=== PATIENT | female | born 1975 | race Caucasian/White ===

== ENCOUNTER 2020-04-23 10:23 | Outpatient (RCR) | payer OTHER, SELFPAY | END 2020-10-21 10:37 | disposition home or self-care (01) | LOC: HO.WCC 10:23 | PROVIDERS: PCP Internal Medicine; Visit Provider Physician Assistant | DX: E11.622 Type 2 diabetes mellitus with other skin ulcer (principal); L97.912 Non-pressure chronic ulcer of unspecified part of right lower leg with fat layer exposed; E11.51 Type 2 diabetes mellitus with diabetic peripheral angiopathy without gangrene; I10 Essential (primary) hypertension; L60.2 Onychogryphosis; F17.210 Nicotine dependence, cigarettes, uncomplicated; Z71.6 Tobacco abuse counseling; Z79.84 Long term (current) use of oral hypoglycemic drugs; Z91.14 Patient's other noncompliance with medication regimen | CPT/HCPCS: 11042; 17250; 97602; 99202; 99212 ==

== ENCOUNTER → 2020-05-19 12:28 | Outpatient (BNVA) | payer OTHER, SELFPAY | PROVIDERS: PCP Internal Medicine; Referring Provider Internal Medicine; Visit Provider Internal Medicine | DX: Z76.89 Persons encountering health services in other specified circumstances (principal) ==

== ENCOUNTER 2020-06-02 09:05 | Outpatient (REF) | payer OTHER, SELFPAY ==
--- NOTE | 2020-06-02 09:07 | US_ITS ---
EXAMINATION: US THYROID CLINICAL INFORMATION: Hypothyroidism, unspecified. COMPARISON: None TECHNIQUE: Linear transducer patterson-scale and color Doppler examination with attention to the region of the thyroid. FINDINGS: SIZE: Measurements of the thyroid lobes and nodules are given in sagittal, anteroposterior and transverse dimensions respectively. Right Thyroid Lobe: 3.5 x 1.2 x 1.6 cm, volume 3.5 mL. Parenchyma: The gland echotexture is heterogeneous. Thyroid vascularity is normal. Left Thyroid Lobe: 3.0 x 1.0 x 1.3 cm, volume 2.1 mL. Parenchyma: The gland echotexture is heterogeneous. Thyroid vascularity is normal. Isthmus: 0.2 cm in maximum AP dimension. RIGHT THYROID LOBE: There is 1 nodule seen. 1. Location: Midpole. Size: 1.6 x 1.2 x 0.9 cm. Nodule characteristics: Hypoechoic, smoothly marginated with no intranodular flow. ISTHMUS: No nodules. LEFT THYROID LOBE: No nodules. NODES: No lymphadenopathy is seen in the tissue surrounding the thyroid gland. US/US thyroid IMPRESSION: Solitary hypoechoic nodule, suspicious by SOTO criteria. A short-term followup in 6 months or an ultrasound-guided fine-needle biopsy can be performed.
== END 2020-06-02 09:06 | disposition home or self-care (01) ==
LOC: HO.HMGCX 09:05
PROVIDERS: PCP Internal Medicine; Visit Provider Internal Medicine
DX: E03.9 Hypothyroidism, unspecified (principal)
CPT/HCPCS: 76536

== ENCOUNTER 2020-06-30 09:16 | Outpatient (REF) | payer OTHER, SELFPAY ==
[2020-06-30 11:36] LABS: Estimated Average Glucose 258 mg/dL; Hemoglobin A1c % 10.6 %
[2020-06-30 11:46] LABS: Alanine Aminotransferase 50 U/L (0-31); Albumin Level 4.1 g/dL (3.5-5.0); Alkaline Phosphatase 95 U/L (39-117); Anion Gap 14 (12-20); Aspartate Amino Transferase 53 U/L (5-31); Blood Urea Nitrogen 10 mg/dL (9-16); Calcium 8.9 mg/dL (8.4-10.2); Carbon Dioxide 28 mmol/L (22-29); Chloride 97 mmol/L (96-108); Cholesterol 223 mg/dL; Estimated Glomerular Filt Rate > 60; Glucose Random 248 mg/dL (60-115); HDL Cholesterol 45 mg/dL; LDL Cholesterol Calculated 143 mg/dl; Potassium 4.1 mmol/l (3.3-5.1); Sodium 135 mmol/L (135-145); Total Protein 7.4 g/dL (6.5-8.0); Triglycerides 178 mg/dL
[2020-06-30 11:57] LABS: Free T4 (Free Thyroxine) 1.36 ng/dL (0.71-1.85); Thyroid Stimulating Hormone 2.86 uIU/mL (0.32-4.0); Vitamin D 25-OH Total 6.2 ng/mL (>30)
[2020-06-30 12:20] LABS: Creatinine Urine 265.36 mg/dL; Microalbum/Creatinine Ratio Ur 7.1 ug/mg cr
[2020-07-01 06:58] LABS: LDL Cholesterol Direct 152 mg/dL (<100); Triiodothyronine T3 Total 98 ng/dL (76-181)
[2020-07-01 17:57] LABS: Thyroglobulin Antibodies <1 IU/mL (< or = 1); Thyroid Peroxidase Antibodies 14 IU/mL (<9)
[2020-07-05 16:07] LABS: Thyroid Stimulating Immunoglob 318 % baseline (<140)
[2020-07-07 19:22] LABS: Thyrotropin Receptor Antibody 2.88 IU/L (<=2.00)
== END 2020-06-30 09:17 | disposition home or self-care (01) ==
LOC: HO.HMGCLDS 09:16
PROVIDERS: PCP Internal Medicine; Visit Provider Internal Medicine
DX: E11.65 Type 2 diabetes mellitus with hyperglycemia (principal); Z79.4 Long term (current) use of insulin; E03.9 Hypothyroidism, unspecified; E55.9 Vitamin D deficiency, unspecified
CPT/HCPCS: 36415; 80053; 80061; 82043; 82306; 83036; 83520; 83721; 84439; 84443; 84445; 84480; 86376; 86800

== ENCOUNTER → 2020-07-14 16:00 | Outpatient (BNVA) | payer OTHER, SELFPAY | PROVIDERS: PCP Internal Medicine; Visit Provider Internal Medicine | DX: E11.65 Type 2 diabetes mellitus with hyperglycemia (principal); Z79.4 Long term (current) use of insulin; E03.9 Hypothyroidism, unspecified; E55.9 Vitamin D deficiency, unspecified; E78.5 Hyperlipidemia, unspecified; I10 Essential (primary) hypertension; E04.2 Nontoxic multinodular goiter | CPT/HCPCS: 82947; 99212 ==

== ENCOUNTER 2020-07-16 09:47 | Outpatient (REF) | payer OTHER, SELFPAY ==
--- NOTE | 2020-07-16 09:56 | XR_ITS ---
EXAMINATION: XR TIBIA AND FIBULA, RIGHT CLINICAL INFORMATION: Diabetic with right lower leg pain. COMPARISON: None TECHNIQUE: AP and lateral views of the right tibia and fibula were obtained. A lateral marker was placed where patient complains of pain. FINDINGS: The bones and soft tissues are normal. No fracture. No osseous lesions in the tibia or fibula. There is an incidental finding of degenerative arthritic spurring superior patella with probable loose body in the suprapatellar bursa as noted. Also visualized is calcification of posterior Achilles tendon, likely a remote injury. Moderate-sized calcaneal heel and retrocalcaneal spurs are seen. XR/XR tibia fibula RT 2V IMPRESSION: Unremarkable right tibia and fibula exam.
== END 2020-07-16 09:48 | disposition home or self-care (01) ==
LOC: HO.XRAY 09:47
PROVIDERS: PCP Internal Medicine; Visit Provider Physician Assistant
DX: E11.9 Type 2 diabetes mellitus without complications (principal); M79.661 Pain in right lower leg
CPT/HCPCS: 73590

== ENCOUNTER 2020-08-30 09:32 | Outpatient (REF) | payer OTHER, SELFPAY ==
--- NOTE | ~2020-08-30 | US_ITS ---
EXAMINATION: COLOR-FLOW DUPLEX IMAGING OF THE BILATERAL LOWER EXTREMITY ARTERIAL SYSTEM. VELOCITY MEASUREMENTS THROUGHOUT THE FEMORAL ARTERIES CLINICAL INFORMATION: This is a 45-year-old female with diabetes, right lower extremity peripheral arterial disease. COMPARISON: None. RIGHT FEMORAL RUNOFF VELOCITIES: The right common femoral artery measures 154 cm/s and triphasic. The right profunda femoral artery is 96 cm/s and is biphasic. Right proximal superficial femoral artery measures 136 cm/s and triphasic. Mid superficial femoral artery is 186 cm/s and triphasic. Distal right superficial femoral artery measures 112 cm/s and is triphasic. Right popliteal velocity measures 92 cm/s and is triphasic. The posterior tibial artery velocity measures 91 cm/s and was monophasic. US/US arterial duplex LE RT IMPRESSION: 1. There is mild disease in the mid right superficial femoral artery without evidence of hemodynamically significant stenosis. The right posterior tibial artery is monophasic without hemodynamically significant stenosis visualized.
== END 2020-08-30 09:33 | disposition home or self-care (01) ==
LOC: HO.US 09:32
PROVIDERS: Visit Provider Physician Assistant
DX: I73.9 Peripheral vascular disease, unspecified (principal)
CPT/HCPCS: 93926

== ENCOUNTER 2020-12-03 08:52 | Outpatient (RCR) | payer OTHER, SELFPAY | END 2020-12-13 16:25 | disposition home or self-care (01) | LOC: HO.WCC 08:52 | PROVIDERS: Visit Provider Physician Assistant | DX: E11.622 Type 2 diabetes mellitus with other skin ulcer (principal); L97.812 Non-pressure chronic ulcer of other part of right lower leg with fat layer exposed; E11.51 Type 2 diabetes mellitus with diabetic peripheral angiopathy without gangrene; Z79.84 Long term (current) use of oral hypoglycemic drugs; F17.210 Nicotine dependence, cigarettes, uncomplicated; I10 Essential (primary) hypertension; Z71.6 Tobacco abuse counseling | CPT/HCPCS: 99212 ==

== ENCOUNTER → 2021-01-12 08:07 | Outpatient (BNVA) | payer OTHER, SELFPAY | PROVIDERS: PCP Internal Medicine; Visit Provider Internal Medicine ==

== ENCOUNTER 2021-08-29 12:09 | Outpatient (REF) | payer OTHER, SELFPAY ==
[2021-08-29 14:29] LABS: Alanine Aminotransferase 27 U/L (0-31); Albumin Level 3.8 g/dL (3.5-5.0); Alkaline Phosphatase 93 U/L (39-117); Anion Gap 10 (12-20); Aspartate Amino Transferase 31 U/L (5-31); Bilirubin Total 0.8 mg/dL (0.0-1.0); Blood Urea Nitrogen 10 mg/dL (9-16); Calcium 9.5 mg/dL (8.4-10.2); Carbon Dioxide 31 mmol/L (22-29); Chloride 100 mmol/L (96-108); Cholesterol 261 mg/dL; Estimated Glomerular Filt Rate > 60; Glucose Fasting 213 mg/dL (60-99); HDL Cholesterol 52 mg/dL; LDL Cholesterol Calculated 180 mg/dl; Potassium 4.3 mmol/L (3.3-5.1); Sodium 137 mmol/L (135-145); Total Protein 7.1 g/dL (6.5-8.0); Triglycerides 146 mg/dL
[2021-08-29 14:35] LABS: Free T4 (Free Thyroxine) 0.44 ng/dL (0.71-1.85); Thyroid Stimulating Hormone 25.84 uIU/mL (0.32-4.0); Vitamin D 25-OH Total 9.2 ng/mL (>30)
[2021-08-29 14:39] LABS: Estimated Average Glucose 258 mg/dL; Hemoglobin A1c % 10.6 %
[2021-08-30 21:43] LABS: Thyroid Peroxidase Antibodies 11 IU/mL (<9)
== END 2021-08-29 12:10 | disposition home or self-care (01) ==
LOC: HO.HMGCLDS 12:09
PROVIDERS: Visit Provider Internal Medicine
DX: E03.9 Hypothyroidism, unspecified (principal); E04.2 Nontoxic multinodular goiter; E11.65 Type 2 diabetes mellitus with hyperglycemia; E55.9 Vitamin D deficiency, unspecified; E78.5 Hyperlipidemia, unspecified; I10 Essential (primary) hypertension
CPT/HCPCS: 36415; 80053; 80061; 82306; 83036; 84439; 84443; 86376

== ENCOUNTER 2021-11-10 07:58 | Outpatient (RCR) | payer OTHER, SELFPAY | END 2021-11-17 14:56 | disposition home or self-care (01) | LOC: HO.WCC 07:58 | PROVIDERS: PCP Internal Medicine; Visit Provider Surgery | DX: Z09 Encounter for follow-up examination after completed treatment for conditions other than malignant neoplasm (principal); E11.9 Type 2 diabetes mellitus without complications; I10 Essential (primary) hypertension; F17.210 Nicotine dependence, cigarettes, uncomplicated; Z79.84 Long term (current) use of oral hypoglycemic drugs; Z87.2 Personal history of diseases of the skin and subcutaneous tissue | CPT/HCPCS: 99213 ==

== ENCOUNTER 2022-05-18 08:07 | Outpatient (REF) | payer OTHER, SELFPAY ==
[2022-05-18 11:24] LABS: MANUAL DIFF FLAG NO
[2022-05-18 11:40] LABS: Basophils Absolute Auto 0.1 X10*3/uL (0.0-0.2); Basophils Percent Auto 1.2 % (0-2); Eosinophils Absolute Auto 0.8 X10*3/uL (0.0-0.4); Eosinophils Percent Auto 7.4 % (0-4); Hematocrit 47.2 % (37.0-47.0); Hemoglobin 15.5 g/dl (12.0-16.0); Imm Gran Abs Auto 0.05 X10*3/uL (0.00-0.03); Imm Gran Pct Auto 0.5 % (0.0-0.4); Lymphocytes Absolute Auto 2.8 X10*3/uL (1.2-4.9); Lymphocytes Percent Auto 26.9 % (20-40); Mean Corpuscular HGB Conc 32.8 g/dl (31.0-35.0); Mean Corpuscular Hemoglobin 30.2 pg (27.0-33.0); Mean Platelet Volume 12.8 fL (9.4-12.3); Monocytes Absolute Auto 0.5 X10*3/uL (0.1-1.2); Monocytes Percent Auto 4.6 % (2-11); Neutrophils Absolute Auto 6.2 x10*3/uL (2.0-8.3); Neutrophils Percent Auto 59.4 % (45-73); Platelet Count 207 X10*3/uL (160-400); Red Blood Count 5.13 X10*6/uL (4.20-5.50); Red Cell Distribution Width 12.6 % (11.0-16.0); White Blood Count 10.4 X10*3/uL (4.8-10.8)
[2022-05-18 12:17] LABS: Creatinine Urine 70.47 mg/dL; Microalbumin Urine < 5.0 mg/L
[2022-05-18 12:44] LABS: Estimated Average Glucose 249 mg/dL; Hemoglobin A1c % 10.3 %
[2022-05-18 14:17] LABS: Alanine Aminotransferase 32 U/L (0-31); Anion Gap 14 (12-20); Aspartate Amino Transferase 31 U/L (5-31); Blood Urea Nitrogen 10 mg/dL (9-16); Calcium 9.5 mg/dL (8.4-10.2); Carbon Dioxide 27 mmol/L (22-29); Chloride 98 mmol/L (96-108); Cholesterol 248 mg/dL; Estimated Glomerular Filt Rate > 60; Free T4 (Free Thyroxine) 0.55 ng/dL (0.71-1.85); Glucose Fasting 273 mg/dL (60-99); HDL Cholesterol 47 mg/dL; LDL Cholesterol Calculated 160 mg/dl; Potassium 4.4 mmol/L (3.3-5.1); Sodium 135 mmol/L (135-145); Thyroid Stimulating Hormone 17.26 uIU/mL (0.32-4.0); Triglycerides 206 mg/dL
== END 2022-05-18 08:08 | disposition home or self-care (01) ==
LOC: HO.HMGCLDS 08:07
PROVIDERS: PCP Internal Medicine; Visit Provider Internal Medicine
DX: E11.65 Type 2 diabetes mellitus with hyperglycemia (principal); E03.9 Hypothyroidism, unspecified; E04.2 Nontoxic multinodular goiter; E55.9 Vitamin D deficiency, unspecified; E78.5 Hyperlipidemia, unspecified; I10 Essential (primary) hypertension
CPT/HCPCS: 36415; 80048; 80061; 82043; 82306; 83036; 84439; 84443; 84450; 84460; 85025

== ENCOUNTER 2022-10-10 08:02 | Outpatient (RCR) | payer OTHER, SELFPAY | END 2022-10-10 16:00 | disposition home or self-care (01) | LOC: HO.WCC 08:02 | PROVIDERS: PCP Internal Medicine; Visit Provider Physician Assistant | DX: Z09 Encounter for follow-up examination after completed treatment for conditions other than malignant neoplasm (principal); E11.51 Type 2 diabetes mellitus with diabetic peripheral angiopathy without gangrene; I10 Essential (primary) hypertension; F17.210 Nicotine dependence, cigarettes, uncomplicated; Z87.2 Personal history of diseases of the skin and subcutaneous tissue | CPT/HCPCS: 99212 ==

== ENCOUNTER 2023-05-10 09:48 | Emergency (ER) | payer SELFPAY ==
--- NOTE | ~2023-05-10 | XR_ITS ---
EXAMINATION: XR KNEE, LEFT CLINICAL INFORMATION: Left knee pain COMPARISON: 12/21/2017 TECHNIQUE: Four views of the left knee. FINDINGS: There is no evidence of fracture or dislocation. There are mild degenerative changes with is spurring cause the lateral tibial plateau and medial femoral condyle. There is soft tissue calcification adjacent to the patella laterally and there is patellofemoral compartment degenerative changes with marginal spurring. There is no joint effusion. XR/XR knee LT 3V IMPRESSION: Mild degenerative changes
[2023-05-10 10:13] VITALS: BP 142/83; PULSE 83; RESP 18; TEMP 36.6; O2SAT 91; BMI 43.0
[2023-05-10 10:30] LABS: Glucose, Whole Blood 190 mg/dL (60-115)
--- NOTE | 2023-05-10 10:41 | ED.EXTPRO ---
HPI - Extremity Problem General Chief complaint: Extremity Problem Stated complaint: Left knee pain Time Seen by Provider: 05/10/23 10:38 Source: patient Mode of arrival: ambulatory Limitations: no limitations History of Present Illness HPI Narrative: Patient is a 47-year-old female presenting to the emergency department with 4-5 days of left knee pain. She denies any fall or other trauma. Reports pain is to lateral aspect of her knee. States pain increases with flexion and decreases with extension. Reports history of injury to same knee in the past. Has used Tylenol for her pain. Denies any numbness or tingling. Reports she is able to ambulate and has still been able to go to work. MD Complaint: extremity pain Onset (ago): day(s) Pain Consistency: constant Location: left and knee Quality: aching Radiation: none Relieving factors: other (extension) Exacerbating factors: other (flexion) Associated symptoms: denies other symptoms Related Data Previous Rx's Medication Instructions Recorded FreeStyle Lite Meter #1 ea 09/06/21 (blood-glucose meter) FreeStyle Lite Strips (blood sugar #100 ea 09/06/21 diagnostic) lancets 28 gauge #100 ea 09/06/21 lancets 28 gauge (FreeStyle #200 ea 09/13/21 Lancets) Lantus Solostar U-100 Insulin 100 10 unit (0.1 mL) subcut QPM 90 06/06/22 unit/mL (3 mL) subcutaneous pen days #15 mL (insulin glargine) atorvastatin 20 mg tablet 20 mg PO DAILY #90 tabs 12/15/22 levothyroxine 175 mcg tablet 175 mcg PO QAM #90 tabs 12/15/22 lisinopril 5 mg tablet 5 mg PO DAILY #90 tabs 12/15/22 metformin 1,000 mg tablet 1,000 mg PO BIDWMEAL 90 days #180 12/15/22 tabs lidocaine 5 % topical patch 1 patch topical DAILY #15 ea 05/10/23 naproxen 500 mg tablet 500 mg PO BID #28 tabs 05/10/23 Allergies Allergy/AdvReac Type Severity Reaction Status Date / Time doxycycline AdvReac GI upset Verified 06/01/22 10:52 Review of Systems Review of Systems: As per HPI. Yes all other systems are reviewed and are negative Constitutional: Constitutional: Reports as per HPI PMFSH Past Medical History Medical History (Updated 05/10/23 @ 13:09 by Eula Page NP) Ulcer of lower extremity due to diabetes Morbid obesity Diabetes mellitus with hyperglycemia, with long-term current use of insulin Smoker unmotivated to quit Anxiety and depression Toenail fungus Cigarette smoker motivated to quit Depression Type 2 diabetes mellitus with hyperglycemia, without long-term current use of insulin Multinodular thyroid Vitamin D deficiency Hypothyroidism HLD (hyperlipidemia) HTN (hypertension) T2DM (type 2 diabetes mellitus) Surgical History Umbilical hernia, incarcerated Pyloric stenosis Hx of cholecystectomy History of tooth extraction Family History Family History Father Emphysema lung Substance use disorder Mother No problems noted. Social History Social History Housing: House Alcohol intake: never Patient Tobacco Use Status: Current everyday Tobacco user Tobacco use type: Cigarette Cigarette Packs Per Day: 1 Cigarettes Per Day: 8 Years Smoked: 9 e-Cigarette/Vaping Use: Never Used Advance Directives: No service: No Current occupational status: employed Cognitive needs: No Hearing needs: No Vision needs: Yes Physical Exam Vital Signs: Vital Signs: Last Vital Signs Temp 98 F 05/10/23 10:13 Pulse 83 05/10/23 10:13 Resp 18 05/10/23 10:13 BP 142/83 H 05/10/23 10:13 Pulse Ox 91 L 05/10/23 10:13 O2 Del Method Room Air 05/10/23 10:13 BMI result Body Mass Index 43.0 Vital signs have been reviewed and appear to be correct. Blood pressure normal. Heart rate normal. Respiratory rate normal. Temperature normal. Oxygen saturation low, patient currently being treated for bronchitis. Const: General: cooperative and no acute distress Orientation/consciousness: oriented to person, oriented to place, oriented to time and patient oriented x3 Limitations: no limitations HEENT: Head: Yes normocephalic and Yes atraumatic Ears: external ears normal General nose exam: Normal external nose present Face and sinus: Yes face symmetric Mouth: oropharynx normal and moist mucous membranes Throat: Yes uvula midline Eyes: Pupils: Equal, round and reactive pupils present Neck: Neck: Yes normal visual inspection and Yes supple Resp: Effort & Inspection: normal respiratory effort and able to speak in complete sentences Auscultation: clear to auscultation bilaterally Cardio: Rate: regular rate Rhythm: regular rhythm Heart sounds: S1 normal heart sound present and S2 normal heart sound present Skin: General skin exam: elasticity normal and turgor normal Neuro: General: oriented to person, oriented to place, oriented to time, patient oriented x3, moves all extremities, no focal motor deficits and CN's II-XI intact bilaterally Cranial nerves: Yes Equal, round and reactive pupils present Cognition (Neuro): normal cognition Extrem: General: Yes full ROM, Yes no pedal edema and Yes no calf tenderness Left lower extremity: knee Details: normal to inspection, tenderness Location: of the lateral joint line, normal ROM and knee ligament exam normal; no deformity and no unusual warmth and foot Details: vascular exam Details: dorsalis pedis pulse present and posterior tibial pulse present Psych: Mental Status: mental status grossly normal Affect: normal affect Thought process: Normal thought process present Medical Decision Making Medical Decision Making [facility] Narrative: Patient is a 47-year-old female presenting to the emergency department with 4-5 days of left knee pain. On exam patient is awake, A+Ox3, VS WNL, afebrile, normal neurological exam without focal deficits, physical exam findings as above. Given reported symptoms and physical exam findings, initial differential includes degenerative changes, osteoarthritis, strain. X-ray notable for degenerative changes. My interpretation is in agreement with the radiologist's interpretation. Results discussed with patient and all questions answered. Aj wrap applied in the emergency department. Will prescribe naproxen and topical lidocaine patches and referred to orthopedics. Return precautions discussed at bedside. Patient verbalized understanding of and agreement with plan. Differential Diagnosis Differential Diagnoses: The differential diagnosis associated with the presentation includes As per MDM. Lab Data [facility] Lab Attestation statement: I reviewed the patient's lab results. Mildly elevated glucose Labs: Lab Results 05/10/23 Range/Units 10:25 POC Glucose 190 H (60-115) mg/dL Independent Interpretation I performed an independent interpretation of an: Plain X-Ray Interpretation: No fracture, degenerative changes noted Radiology Impression Radiologist Impression: XR/XR knee LT 3V IMPRESSION: Mild degenerative changes External Record Review External record reviewed: Inpatient record, Office record and Outpatient record Prescription Management I considered prescription management with: Pain Medication and Other Discharge Plan Discharge Clinical Impression: Knee pain, left Patient Disposition: Home, Self-Care Instructions: Knee Pain (ED) Additional Instructions: You have been evaluated in the emergency department today for knee pain. Your evaluation did not find evidence of medical conditions requiring emergent intervention at this time. We have provided an AJ wrap for you to use for suuport. Please rest, ice, and elevate your knee, and resume normal activities as tolerated. You are being prescribed naproxen and topical lidocaine patches for pain. You may wear the lidocaine patches for up to 12 hours a 24 hour period, do not apply heat directly over the patches. Please schedule an appointment for follow-up with your primary care provider this week. You are also being referred to Orthopedics for further evaluation and management of your symptoms. Please call them to set up an appointment. Return to the emergency department if you experience worsening pain, numbness, tingling, change of color in your leg, or any other concerning symptoms. Prescriptions: New naproxen 500 mg tablet 500 mg PO BID Qty: 28 0RF lidocaine 5 % adhesive patch,medicated 1 patch topical DAILY Qty: 15 0RF Rx Instructions: leave on most painful area for up to 12 hrs No Action (DME) lancets [FreeStyle Lancets] 28 gauge misc See Rx Instructions .Route Qty: 200 3RF Rx Instructions: test blood sugars twice a day insulin glargine [Lantus Solostar U-100 Insulin] 100 unit/mL (3 mL) insulin pen 10 unit subcut QPM 90 Days Qty: 15 2RF metformin 1,000 mg tablet 1,000 mg PO BIDWMEAL 90 Days Qty: 180 1RF levothyroxine 175 mcg tablet 175 mcg PO QAM Qty: 90 1RF lisinopril 5 mg tablet 5 mg PO DAILY Qty: 90 1RF atorvastatin 20 mg tablet 20 mg PO DAILY Qty: 90 1RF (DME) lancets 28 gauge misc See Rx Instructions topical TID Qty: 100 5RF Rx Instructions: check blood sugar twice a day before meals As directed (DME) blood-glucose meter [FreeStyle Lite Meter] Kit See Rx Instructions .Route Qty: 1 0RF Rx Instructions: As directed (DME) FreeStyle Lite Strips Strip See Rx Instructions .Route Qty: 100 5RF Rx Instructions: check fasting blood sugartwice a day AC Ref[place]: [facility] [Provider Group]
== END 2023-05-10 13:15 | disposition home or self-care (01) ==
PROVIDERS: Emergency Provider Student in an Organized Health Care Education/Training Program; PCP Internal Medicine
DX: M25.562 Pain in left knee (principal); E11.65 Type 2 diabetes mellitus with hyperglycemia; I10 Essential (primary) hypertension; E78.5 Hyperlipidemia, unspecified; F17.210 Nicotine dependence, cigarettes, uncomplicated; E66.9 Obesity, unspecified; Z68.41 Body mass index [BMI] 40.0-44.9, adult; Z79.4 Long term (current) use of insulin; Z79.899 Other long term (current) drug therapy
CPT/HCPCS: 73562; 82947; 99283

== ENCOUNTER 2023-11-23 08:49 | Outpatient (REF) | payer OTHER, SELFPAY ==
[2023-11-23 10:43] LABS: Estimated Average Glucose 269 mg/dL
[2023-11-23 11:07] LABS: Creatinine Urine 285.69 mg/dL
[2023-11-23 11:12] LABS: Alanine Aminotransferase 29 U/L (0-31); Albumin Level 3.9 g/dL (3.5-5.0); Alkaline Phosphatase 101 U/L (39-117); Anion Gap 12 (12-20); Aspartate Amino Transferase 28 U/L (5-31); Bilirubin Total 0.6 mg/dL (0.0-1.0); Blood Urea Nitrogen 12 mg/dL (9-16); Carbon Dioxide 29 mmol/L (22-29); Chloride 100 mmol/L (96-108); Cholesterol 231 mg/dL (<200); Estimated Glomerular Filt Rate > 60; Glucose Fasting 288 mg/dL (60-99); HDL Cholesterol 44 mg/dL (>40); LDL Cholesterol Calculated 148 mg/dL (<100); Sodium 137 mmol/L (135-145); Total Protein 7.4 g/dL (6.5-8.0); Triglycerides 195 mg/dL (<150)
[2023-11-23 11:32] LABS: Thyroid Stimulating Hormone 16.56 uIU/mL (0.32-4.0); Vitamin D 25-OH Total 18.5 ng/mL (>30)
[2023-11-24 11:09] LABS: LDL Cholesterol Direct 172 mg/dL (<100)
== END 2023-11-23 08:50 | disposition home or self-care (01) ==
LOC: HO.HMGCLDS 08:49
PROVIDERS: PCP Internal Medicine; Visit Provider Internal Medicine
DX: E66.01 Morbid (severe) obesity due to excess calories (principal); E11.65 Type 2 diabetes mellitus with hyperglycemia; E55.9 Vitamin D deficiency, unspecified; E03.9 Hypothyroidism, unspecified; E78.5 Hyperlipidemia, unspecified; I10 Essential (primary) hypertension; Z79.4 Long term (current) use of insulin
CPT/HCPCS: 36415; 80053; 80061; 82043; 82306; 82570; 83036; 83721; 84439; 84443

== ENCOUNTER 2023-12-03 11:56 | Outpatient (AMB) | payer OTHER, SELFPAY ==
[2023-12-03 12:02] VITALS: BP 136/88; PULSE 94; O2SAT 97; BMI 41.5
--- NOTE | 2023-12-03 12:02 | MHC.PC.OV ---
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 Sewer Required: No Allergies doxycycline Adverse Reaction (Verified 12/03/23 12:44) GI upset Medication List - Last Reconciled 12/04/23 by Evie Hickman MD atorvastatin 20 mg PO DAILY bupropion HCl (smoking deter) 150 mg PO BID cholecalciferol (vitamin D3) 1,250 mcg PO QWEEK 3 months FreeStyle Lite Meter (blood-glucose meter) As directed NS FreeStyle Lite Strips (blood sugar diagnostic) check fasting blood sugartwice a day AC NS insulin glargine (Lantus Solostar U-100 Insulin) 10 units subcut QPM lancets check blood sugar twice a day before meals As directed lancets (FreeStyle Lancets) test blood sugars twice a day levothyroxine 175 mcg PO QAM metformin 1,000 mg PO BIDWMEAL 90 days pen needle, diabetic As directed to inject insulin once a day pen needle, diabetic (BD Ultra-Fine Short Pen Needle) As directed Tobacco use date assessed: 12/03/23 Dental Screening Dental Screen Date: 12/03/23 Did you have a dental visit in the last 12 months?: No Did you have a dental problem in the last 6 months where you did not have access to dental care?: No Was dental information given to patient?: No HPI Need medications follow up HPI Details 48-year-old lady with uncontrolled diabetes mellitus, hypothyroidism, morbid obesity, anxiety /depression, hyperlipidemia, Tinea ungiuum with history of noncompliance, here today reestablish care. She has not been taking any medications until 2 weeks ago when she started taking again metformin, atorvastatin, and levothyroxine. Complains of feeling very tired all the time, has difficulty with keeping her focus on tasks at work and at home, admits to eating a lot of processed foods, no exercise at all, and has not been checking her blood sugars for the last several months now. 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 Has been having a lot of anxiety attacks lately, and would like help quitting smoking [facility] Medical History (Updated 12/03/23 @ 13:04 by Evie Hickman MD) Diabetic neuropathy Ulcer of lower extremity due to diabetes Morbid obesity Diabetes mellitus with hyperglycemia, with long-term current use of insulin Anxiety and depression Toenail fungus Cigarette smoker motivated to quit Depression Type 2 diabetes mellitus with hyperglycemia, without long-term current use of insulin Multinodular thyroid Vitamin D deficiency Hypothyroidism HLD (hyperlipidemia) HTN (hypertension) T2DM (type 2 diabetes mellitus) Surgical History Umbilical hernia, incarcerated Pyloric stenosis Hx of cholecystectomy History of tooth extraction Family History Father Emphysema lung Substance use disorder Mother Atrial fibrillation Social History Housing: House Alcohol intake: never Patient Tobacco Use Status: Current everyday Tobacco user Tobacco use type: Cigarette Cigarette Packs Per Day: 1 Cigarettes Per Day: 20 Years Smoked: 9 e-Cigarette/Vaping Use: Never Used service: No Current occupational status: employed Cognitive needs: No Hearing needs: No Vision needs: Yes Questionnaire PHQ-9 Over the last 2 weeks, how often have you been bothered by any of the following problems? 1. Little interest or pleasure in doing things: several days 2. Feeling down, depressed, or hopeless: nearly every day 3. Trouble falling or staying asleep, or sleeping too much: more than half the days 4. Feeling tired or having little energy: more than half the days 5. Poor appetite or overeating: several days 6. Feeling bad about yourself - or that you are a failure or have let yourself or your family down: nearly every day 7. Trouble concentrating on things, such as reading the newspaper or watching television: several days 8. Moving or speaking so slowly that other people could have noticed. Or the opposite - being so fidgety or restless that you have been moving around a lot more than usual: not at all 9. Thoughts that you would be better off or of hurting yourself in some way: several days Total score: 14 Depression Screening Interpretation: Positive Depression Screening Follow-up: Existing condition, New Medication prescribed, Community Mental Health Worker F/U and Follow-up Visit Requested Depression Screening Done: Yes 21601 - PHQ-9 Billing: Yes Source: Developed by Drs. Jose Wei, Jayleen Hanson, Wyatt Jung and colleagues, with an educational margaret from [employer]. Thrive Questionnaire Date Thrive assessed: 12/03/23 I am a: Patient What is your living situation today?: I have a steady place to live Within the past 12 months, did the food you bought not last and you didn't have the money to get more?: Sometimes True Within the past 12 months, did you worry whether your food would run out before you got money to buy more?: Sometimes True Do you have trouble paying for medicines?: No Do you have trouble getting transportation to medical appointments?: Yes Do you have trouble paying your heating and electricity bill?: No Do you have trouble taking care of your child, family member or friend?: Yes Do you have trouble with day-to-day activities such as bathing, preparing meals, shopping, managing finances, etc.?: Yes Are you currently unemployed and looking for a job?: No Are you interested in more education?: Yes THRIVE Score: 3 AUDIT C Alcohol Use Questionnaire (AUDIT-C) 1. How often do you have a drink containing alcohol?: Never 3. How often do you have six or more drinks on one occasion?: Never Total Score: 0 Score Reviewed/Action Taken: Yes CODY-7 AMB Questionnaire CODY-7 Date CODY - 7 assessed: 12/03/23 Feeling nervous, anxious, or on edge: 2 = More than half the days Not being able to stop or control worryin = Nearly every day Worrying too much about different things: 3 = Nearly every day Trouble relaxin = More than half the days Being so restless that it is hard to sit still: 1 = Several days Becoming easily annoyed or irritable: 3 = Nearly every day Feeling afraid as if something awful might happen: 3 = Nearly every day Total COYD-7 score (0-4 normal; 5-9 mild; 10-14 moderate; 15-21 severe): 17 Source: Developed by Jayleen Holbrook B.W. Valentin, Wyatt Jung and colleagues, with an educational margaret from [employer]. CODY-7 Assessment Billing CODY-7 Assessment Tool: CODY-7 Assessment 90717 Review of Systems Const Reports fatigue, Denies fever(s), Denies headache(s), Reports malaise and Denies weakness Eyes Details: Overdue for a routine eye check and diabetes eye screen Denies change in vision and Denies itchy eyes ENT Denies dizziness, Denies headache(s), Denies nasal congestion, Denies nasal discharge and Denies sore throat Card Denies chest pain, Denies lightheadedness, Denies palpitations and Denies dyspnea Resp Denies chest congestion, Denies cough, Denies dyspnea and Denies wheezing GI Denies abdominal pain, Denies change in bowel habits and Denies heartburn Denies dysuria Musc Denies abnormal gait, Denies deformity, Denies limited range of motion and Reports stiffness Skin/Breast Denies breast swelling, Denies breast pain, Denies breast mass and Reports nail changes Neuro Denies abnormal gait, Denies dizziness, Denies headache(s) and Denies weakness Psych Reports as per HPI Endo Reports fatigue, Reports polyuria and Denies palpitations To/Lymph Denies easy bruising Aller/Immun Denies itchy eyes, Denies seasonal rhinorrhea and Denies wheezing Physical exam (Primary Care) Vital Signs: Last Vital Signs Pulse 94 12/03/23 12:02 BP 136/88 12/03/23 12:02 Pulse Ox 97 12/03/23 12:02 Oxygen Delivery Method Room Air 12/03/23 12:02 BMI result Body Mass Index 41.5 BMI Assessment/Plan discussion: High BMI High, discussed plan: lifestyle, weight reduction, dietary and physical activity Tobacco/Smoking Status: Tobacco use Status Tobacco use date assessed 12/03/23 12/03/23 12:12 Patient Tobacco Use Status Current everyday Tobacco 12/03/23 12:12 Tobacco use type Cigarette 12/03/23 12:12 e-Cigarette/Vaping Use Never Used 12/03/23 12:12 Are you ready to quit: No PHQ-9: PHQ-9 Score PHQ-9: Total score 14 12/04/23 17:48 Depression Screening Interpretation: Positive Depression Screening Follow-up: Existing condition, New Medication prescribed, Community Mental Health Worker F/U and Follow-up Visit Requested Thrive Assessment: Date of Thrive Assessment Date Thrive assessed 12/03/23 12/03/23 12:50 Const Other: Morbidly obese, alert, oriented x3, normal gait Orientation/consciousness: patient oriented x3 HENMT Head: Yes normocephalic and Yes atraumatic Ears: hearing grossly normal bilaterally, TM's normal bilaterally and EAC's normal General nose exam: Normal external nose present and No nasal discharge present Face and sinus: Yes face symmetric Mouth: Normal oral and palatal mucosa present and moist mucous membranes Eyes General: appearance normal, both eyes and all related structures Neck Neck: Yes full ROM, Yes no lymphadenopathy and Yes supple Thyroid: Thyroid normal Resp Effort & Inspection: normal respiratory effort and able to speak in complete sentences Auscultation: clear to auscultation bilaterally Cardio Rate: regular rate Rhythm: regular rhythm Heart sounds: S1 normal heart sound present and S2 normal heart sound present GI Inspection: Yes Abdominal panniculus present and Yes obesity Palpation (GI): Soft to palpation, nontender, no guarding and no masses Back/Spine/Pelvis Back: No back tenderness Skin Other: Dry cracking skin in both feet, with plantar callus present bilateral General skin exam: dry skin Nails: yellow and thickened (Toenails bilaterally) Neuro General: patient oriented x3, gait normal, tone normal, moves all extremities, Normal light touch and pain sensation, no focal motor deficits and CN's II-XI intact bilaterally Extrem General: Yes full ROM, Yes no joint enlargement, Yes no clubbing, cyanosis or edema and Yes no pedal edema Psych Appearance: grossly normal Mental Status: mental status grossly normal Speech and movement: Normal speech and movement present and Clear speech present Affect: Sad affect present Attitude: cooperative Thought process: Normal thought process present Results Reviewed Results Reviewed: Laboratory Tests 11/23/23 11/23/23 08:54 08:57 Estimat Average Glucose 269 Hemoglobin A1c % 11.0 H LDL Cholesterol Direct 172 H Name: Pam Navarrete Age/Sex: 48/F : 1975 Unit#: [id number] Attend Dr: Evie Hickman MD Re11/23/23 Status: DEP REF Location: [facility] Disch: SPEC : [id number] LITO: 11/23/23 STATUS: COMP REQ : [id number] RECD: 11/23/23 [facility] [address]: Evie Hickman MD COMP: 11/23/23 ENTERED: 11/23/[address] [facility] [address]: ORDERED: CMP Fast, Lipid Panel, Vitamin D 25-OH, Free T4, TSH Test Result Flag Reference Sodium 137 135-145 mmol/L Potassium 4.0 3.3-5.1 mmol/L CL 100 96-108 mmol/L CO2 29 22-29 mmol/L Gap 12 12-20 BUN 12 9-16 mg/dL Creat 0.83 0.5-1.4 mg/dL EGFR > 60 NOTE: For -Maldiv[place] individuals, multiply the result by 1.210. Chronic Kidney Disease: Estimated GFR < 60 mL/min/1.73m2 Severe Kidney Disease: Estimated GFR < 15 mL/min/1.73m2 FBS 288 H 60-99 mg/dL A fasting glucose of 126 mg/dl or greater on more than one occasion is considered diagnostic of diabetes. CA 10.0 8.4-10.2 mg/dL Total Bili 0.6 0.0-1.0 mg/dL AST (GOT) 28 5-31 U/L ALT (GPT) 29 0-31 U/L Protein, Total 7.4 6.5-8.0 g/dL Alb 3.9 3.5-5.0 g/dL Triglyceride 195 H <150 mg/dL Desirable Triglyceride: less than 150 mg/dL Borderline High Triglyceride 150-199 mg/dL High Triglyceride: 200-499 mg/dL Very High Triglyceride: greater than or equal to 5OO mg/dL Cholesterol 231 H <200 mg/dL Desirable Cholesterol: less than 200 mg/dL Borderline High Cholesterol: 200-239 mg/dL High Cholesterol: greater than 239 mg/dL LDL Calculated 148 H <100 mg/dL Desirable LDL: less than 100 mg/dL Near Optimal/Above Optimal LDL: 110-129 mg/dL Borderline High LDL: 130-159 mg/dL High LDL: 160-189 mg/dL Very High LDL: greater than or equal to 190 mg/dL HDL 44 >40 mg/dL Desirable HDL: greater than 40 mg/dL Note: This HDL assay may give artificially low results in patients with liver disease. Alk Phos 101 39-117 U/L Vit D 25-OH Tot 18.5 L >30 ng/mL Health Based Reference Values* < 20 ng/mL Deficient 20-30 ng/mL Insufficient > 30 ng/mL Sufficient *Nayla PEDROZA. N Engl J Med. 2007;[id number]:266-280 Care must be taken in interpreting Vitamin D results from different laboratories and methodologies. Published data demonstrated that results from patients undergoing hemodialysis may show a negative bias when tested with various automated 25-OH vitamin D assays when compared to LC-MS/MS. When testing samples from patients whose predominant form of Vitamin D is Vitamin D2, such as patients receiving Vitamin D2 supplementation, results that are subtherapeutic should be confirmed with another method such as LC-MS/MS. Free T4 0.70 L 0.71-1.85 ng/dL TSH 3rd Gen. 16.56 H 0.32-4.0 uIU/mL Note: A sustained TSH level above 2.5 uIU/mL may warrant further investigation. TSH 3rd Generation ([facility]) Assessment and Plan Assessment & Plan (1) Anxiety and depression: Code(s): F41.9 - Anxiety disorder, unspecified; F32.A - Depression, unspecified Plan: Prescription sent for bupropion HCL, 150 mg per tablet initially to be taken once a day in a.m. for 3 days and then increase dose to 150 mg 1 tablet twice a day. Do not take the last 2nd dose no any later than 15:00 as it can cause difficulty sleeping patient advised to start cutting back on her cigarettes while taking the medication will see her back for follow-up in 4-6 weeks after starting (2) HLD (hyperlipidemia): Code(s): E78.5 - Hyperlipidemia, unspecified Qualifiers: Hyperlipidemia type: unspecified Qualified Code(s): E78.5 - Hyperlipidemia, unspecified Plan: Recent fasting lipid panel showed elevated LDL cholesterol and triglycerides. She was recently started on atorvastatin again about a week ago, continue with 20 mg daily, reinforced importance of following a healthy diet, and getting regular exercise to start off at least 15 minutes of cardio daily. 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 Patient was prescribed freestyle meter and I strips, to check sugar at least twice a day before meals and keep a log of the readings, refusing to use the freestyle [place] or Dexcom meter, states that it frequently falls off when she puts it on her arm. Endocrine consult obtain (4) Morbid obesity: Code(s): E66.01 - Morbid (severe) obesity due to excess calories Plan: Reinforced importance of following recommended diet and getting regular exercise (5) Toenail fungus: Code(s): B35.1 - Tinea unguium Plan: Referral to podiatry Blood pressure at goal of less than 130/80. Continue with current medication. Reinforced importance of following a low sodium diet, getting regular exercise, and lowering stress levels. (6) HTN (hypertension): Code(s): I10 - Essential (primary) hypertension Qualifiers: Hypertension type: unspecified Qualified Code(s): I10 - Essential (primary) hypertension Plan: Blood pressure goal is less than 130/80. Reinforced importance of following a low sodium diet, getting regular exercise, and lowering stress levels. (7) Hypothyroidism: Code(s): E03.9 - Hypothyroidism, unspecified Qualifiers: Hypothyroidism type: unspecified Qualified Code(s): E03.9 - Hypothyroidism, unspecified Plan: Recently started back again on levothyroxine 175 mcg taken once a day in a.m. an hour before breakfast. 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 for the 1st 3 days and then 1 tablet twice a day at least 8 hours apart. Do not take close to bed time 150 mg PO BID 60 tabs 1RF F41.9 - Anxiety disorder, unspecified, F32.A - Depression, unspecified Coding Level of Care Code Est Pt Level 4 (08276) Complex EM visit Add On G2211 Diagnoses Anxiety and depression F41.9; F32.A Hyperlipidemia, unspecified hyperlipidemia type E78.5 Hyperlipidemia type: unspecified Diabetes mellitus with hyperglycemia, with long-term current use of insulin E11.65; Z79.4 Morbid obesity E66.01 Toenail fungus B35.1 Hypertension, unspecified type I10 Hypertension type: unspecified Hypothyroidism, unspecified type E03.9 Hypothyroidism type: unspecified Additional Codes CODY-7 Assessment Billing - CODY-7 Assessment Tool: CODY-7 Assessment [id number] ([id number])
== END 2023-12-03 13:37 | disposition home or self-care (01) ==
PROVIDERS: PCP Internal Medicine; Visit Provider Internal Medicine
DX: E11.65 Type 2 diabetes mellitus with hyperglycemia (principal); Z79.4 Long term (current) use of insulin; E66.01 Morbid (severe) obesity due to excess calories; Z68.41 Body mass index [BMI] 40.0-44.9, adult; F41.9 Anxiety disorder, unspecified; F32.A Depression, unspecified; E78.5 Hyperlipidemia, unspecified; B35.1 Tinea unguium; I10 Essential (primary) hypertension; E03.9 Hypothyroidism, unspecified
CPT/HCPCS: 96127; 99214; G2211

== ENCOUNTER 2023-12-28 08:29 | Outpatient (AMB) | payer OTHER, SELFPAY ==
--- NOTE | 2023-12-28 08:24 | MHC.PC.OV ---
Intake Visit Reasons: FMLA Iphone [phone] Intake Note: Pt is here today to discuss a continuous FMLA (FYI, pt didn't refill her insulin rx) Allergies doxycycline Adverse Reaction (Verified 12/28/23 08:44) GI upset Medication List - Last Reconciled 12/28/23 by Evie Hickman MD atorvastatin 20 mg PO DAILY blood-glucose sensor (FreeStyle Laverne 3 Sensor device) As directed to test blood sugar 4 times per day blood-glucose sensor (FreeStyle Laverne 3 Sensor device) As directed bupropion HCl (smoking deter) 150 mg PO BID cholecalciferol (vitamin D3) 1,250 mcg PO QWEEK 3 months FreeStyle Lite Meter (blood-glucose meter) As directed NS FreeStyle Lite Strips (blood sugar diagnostic) check fasting blood sugartwice a day AC NS lancets (FreeStyle Lancets) test blood sugars twice a day lancets check blood sugar twice a day before meals As directed levothyroxine 175 mcg PO QAM metformin 1,000 mg PO BIDWMEAL 90 days pen needle, diabetic As directed to inject insulin once a day pen needle, diabetic (BD Ultra-Fine Short Pen Needle) As directed Tobacco use date assessed: 12/28/23 Dental Screening Dental Screen Date: 12/03/23 Did you have a dental visit in the last 12 months?: No Was dental information given to patient?: No HPI [place] Iphone [phone] HPI Details 48-year-old lady with poorly controlled diabetes mellitus , has hyperlipidemia, hypothyroidism, morbid obesity, hypertension and, anxiety depression, here today for follow-up. Patient has taken leave off from her work due to mental health issues and poorly controlled diabetes mellitus, and hypothyroidism. She has been taking her medications now as instructed, but has not been able to fill her prescription for insulin due to financial constraints. She would like to extend her leave until February 02 , as she is still trying to control her diabetes and mental health issues.. She states that she is only taking metformin a 1000 mg twice a day, and has noticed improvement in her sugar levels. Her blood sugar levels has been running from between 120-160 mg/dL, and has had 1 or 2 episodes of hypoglycemic attacks were in it would go down to 50 mg/dL at night. She is currently being seen by Dr. Calvin for her toenail fungus. She has been taking her bupropion, and has cut back her her smoking to at least 3-5 day. [facility] Medical History Diabetic neuropathy Ulcer of lower extremity due to diabetes Morbid obesity Diabetes mellitus with hyperglycemia, with long-term current use of insulin Anxiety and depression Toenail fungus Cigarette smoker motivated to quit Depression Type 2 diabetes mellitus with hyperglycemia, without long-term current use of insulin Multinodular thyroid Vitamin D deficiency Hypothyroidism HLD (hyperlipidemia) HTN (hypertension) T2DM (type 2 diabetes mellitus) Surgical History Umbilical hernia, incarcerated Pyloric stenosis Hx of cholecystectomy History of tooth extraction Family History Father Emphysema lung Substance use disorder Mother Atrial fibrillation Social History Housing: House Alcohol intake: never Patient Tobacco Use Status: Current everyday Tobacco user Tobacco use type: Cigarette Cigarette Packs Per Day: 1 Cigarettes Per Day: 20 Years Smoked: 9 e-Cigarette/Vaping Use: Never Used service: No Current occupational status: employed Cognitive needs: No Hearing needs: No Vision needs: Yes Questionnaire Thrive Questionnaire Date Thrive assessed: 12/03/23 CODY-7 AMB Questionnaire CODY-7 Date CODY - 7 assessed: 12/03/23 Source: Developed by Drs. Jose Wei, Jayleen Hanson, Wyatt Jung and colleagues, with an educational margaret from [employer]. Review of Systems Const Reports fatigue, Denies fever(s), Denies headache(s), Denies malaise and Denies weakness Eyes Details: Overdue for a routine eye check and diabetes eye screen Denies change in vision and Denies itchy eyes ENT Denies dizziness, Denies headache(s), Denies nasal congestion, Denies nasal discharge and Denies sore throat Card Denies chest pain, Denies lightheadedness, Denies palpitations and Denies dyspnea Resp Denies chest congestion, Denies cough, Denies dyspnea and Denies wheezing GI Denies abdominal pain, Denies change in bowel habits and Denies heartburn Denies dysuria Musc Denies abnormal gait, Denies deformity, Denies limited range of motion and Reports stiffness Skin/Breast Denies breast swelling, Denies breast pain, Denies breast mass and Reports nail changes Neuro Denies abnormal gait, Denies dizziness, Denies headache(s) and Denies weakness Endo Reports fatigue, Reports polyuria and Denies palpitations To/Lymph Denies easy bruising Aller/Immun Denies itchy eyes, Denies seasonal rhinorrhea and Denies wheezing Physical exam (Primary Care) Tobacco/Smoking Status: Tobacco use Status Tobacco use date assessed 12/28/23 12/28/23 08:29 Patient Tobacco Use Status Current everyday Tobacco 12/28/23 08:29 Tobacco use type Cigarette 12/28/23 08:29 e-Cigarette/Vaping Use Never Used 12/28/23 08:29 Thrive Assessment: Date of Thrive Assessment Date Thrive assessed 12/03/23 12/28/23 08:29 Telehealth Telehealth Telehealth Platform: [employer] Location of provider rendering services: practice address Location of patient: address on file Patient Identification confirmed using: Name, : Yes Telehealth method: video Patient verbally consented to treatment: Yes Patient verbally consented to billing insurance company: Yes Patient informed of any privacy concerns related to visit: Yes Minutes spent on Phone/Video with Pt.: 15 Assessment and Plan Assessment & Plan (1) Vitamin D deficiency: Code(s): E55.9 - Vitamin D deficiency, unspecified Plan: Continue cholecalciferol 72990 units per capsule taken once a week for the next 3 months. Advised patient that once finished taking the prescription, to continue taking [id number] vitamin-D 3 at 2000 units per capsule daily. (2) Hypothyroidism: Code(s): E03.9 - Hypothyroidism, unspecified Qualifiers: Hypothyroidism type: unspecified Qualified Code(s): E03.9 - Hypothyroidism, unspecified Plan: Continue with current dose of levothyroxine 175 mcg daily in a.m. an hour before breakfast (3) HLD (hyperlipidemia): Code(s): E78.5 - Hyperlipidemia, unspecified Qualifiers: Hyperlipidemia type: unspecified Qualified Code(s): E78.5 - Hyperlipidemia, unspecified Plan: Continue atorvastatin 20 mg daily. Reinforced importance of following a low-cholesterol diet and get regular exercise. (4) Diabetes mellitus with hyperglycemia, with long-term current use of insulin: Code(s): E11.65 - Type 2 diabetes mellitus with hyperglycemia; Z79.4 - care home (current) use of insulin Plan: Stressed importance of taking her medications as directed, continue with metformin 1000 mg 1 tablet twice a day. Will hold off on giving insulin. Continue with adherence to healthy diet and start getting some form of exercise to at least 15 minutes of brisk walking daily. Reminded again to get her diabetes retinopathy screening done. (5) Anxiety and depression: Code(s): F41.9 - Anxiety disorder, unspecified; F32.A - Depression, unspecified Plan: Continue with bupropion HCL 150 mg per tablet taken 1 tablet twice a day, which is also helpful with her smoking cessation. FMLA form application completed today Orders: Orders Lipid Panel 01/06/24 E03.9 - Hypothyroidism, unspecified, E11.65 - Type 2 diabetes mellitus with hyperglycemia, E55.9 - Vitamin D deficiency, unspecified, E78.5 - Hyperlipidemia, unspecified, I10 - Essential (primary) hypertension, Z79.4 - intermodal dispatcher (current) use of insulin Vitamin D 25-OH Total 01/06/24 E03.9 - Hypothyroidism, unspecified, E11.65 - Type 2 diabetes mellitus with hyperglycemia, E55.9 - Vitamin D deficiency, unspecified, E78.5 - Hyperlipidemia, unspecified, I10 - Essential (primary) hypertension, Z79.4 - intermodal dispatcher (current) use of insulin Free T4 (Free Thyroxine) 01/06/24 E03.9 - Hypothyroidism, unspecified, E11.65 - Type 2 diabetes mellitus with hyperglycemia, E55.9 - Vitamin D deficiency, unspecified, E78.5 - Hyperlipidemia, unspecified, I10 - Essential (primary) hypertension, Z79.4 - care home (current) use of insulin Aspartate Amino Transferase 01/06/24 E03.9 - Hypothyroidism, unspecified, E11.65 - Type 2 diabetes mellitus with hyperglycemia, E55.9 - Vitamin D deficiency, unspecified, E78.5 - Hyperlipidemia, unspecified, I10 - Essential (primary) hypertension, Z79.4 - care home (current) use of insulin Alanine Aminotransferase 01/06/24 E03.9 - Hypothyroidism, unspecified, E11.65 - Type 2 diabetes mellitus with hyperglycemia, E55.9 - Vitamin D deficiency, unspecified, E78.5 - Hyperlipidemia, unspecified, I10 - Essential (primary) hypertension, Z79.4 - intermodal dispatcher (current) use of insulin Thyroid Stimulating Hormone 01/06/24 E03.9 - Hypothyroidism, unspecified, E11.65 - Type 2 diabetes mellitus with hyperglycemia, E55.9 - Vitamin D deficiency, unspecified, E78.5 - Hyperlipidemia, unspecified, I10 - Essential (primary) hypertension, Z79.4 - care home (current) use of insulin Coding Level of Care Code Tele Est Pt Level 4 (76289) Complex EM visit Add On G2211 Diagnoses Vitamin D deficiency E55.9 Hypothyroidism, unspecified type E03.9 Hypothyroidism type: unspecified Hyperlipidemia, unspecified hyperlipidemia type E78.5 Hyperlipidemia type: unspecified Diabetes mellitus with hyperglycemia, with long-term current use of insulin E11.65; Z79.4 Anxiety and depression F41.9; F32.A
== END 2023-12-28 10:38 | disposition home or self-care (01) ==
LOC: HO.HMGC 08:29
PROVIDERS: PCP Internal Medicine; Visit Provider Internal Medicine
DX: E11.65 Type 2 diabetes mellitus with hyperglycemia (principal); Z79.4 Long term (current) use of insulin; E55.9 Vitamin D deficiency, unspecified; E03.9 Hypothyroidism, unspecified; E78.5 Hyperlipidemia, unspecified; F41.9 Anxiety disorder, unspecified; F32.A Depression, unspecified
CPT/HCPCS: 99214; G2211

== ENCOUNTER 2024-01-09 11:58 | Outpatient (REF) | payer OTHER, SELFPAY ==
[2024-01-09 14:28] LABS: Alanine Aminotransferase 22 U/L (0-31); Aspartate Amino Transferase 22 U/L (5-31); Cholesterol 130 mg/dL (<200); HDL Cholesterol 43 mg/dL (>40); LDL Cholesterol Calculated 64 mg/dL (<100); Triglycerides 118 mg/dL (<150)
[2024-01-09 14:32] LABS: Free T4 (Free Thyroxine) 0.75 ng/dL (0.71-1.85); Vitamin D 25-OH Total 18.6 ng/mL (>30)
== END 2024-01-09 11:59 | disposition home or self-care (01) ==
LOC: HO.HMGCLDS 11:58
PROVIDERS: PCP Internal Medicine; Visit Provider Internal Medicine
DX: E55.9 Vitamin D deficiency, unspecified (principal); E03.9 Hypothyroidism, unspecified; E78.5 Hyperlipidemia, unspecified; I10 Essential (primary) hypertension; E11.65 Type 2 diabetes mellitus with hyperglycemia; Z79.4 Long term (current) use of insulin
CPT/HCPCS: 36415; 80061; 82306; 84439; 84443; 84450; 84460

== ENCOUNTER 2024-01-11 09:13 | Outpatient (AMB) | payer OTHER, SELFPAY ==
--- NOTE | 2024-01-11 09:12 | MHC.PC.OV ---
Intake Visit Reasons: ipMyEveTab smoking cessation [phone] Allergies doxycycline Adverse Reaction (Verified 01/11/24 09:18) GI upset Medication List - Last Reconciled 01/11/24 by Evie Hickman MD atorvastatin 20 mg PO DAILY blood-glucose sensor (FreeStyle Laverne 3 Sensor device) As directed to test blood sugar 4 times per day blood-glucose sensor (FreeStyle Laverne 3 Sensor device) As directed bupropion HCl (smoking deter) 150 mg PO BID FreeStyle Lite Meter (blood-glucose meter) As directed NS FreeStyle Lite Strips (blood sugar diagnostic) check fasting blood sugartwice a day AC NS lancets (FreeStyle Lancets) test blood sugars twice a day lancets check blood sugar twice a day before meals As directed levothyroxine 175 mcg PO QAM metformin 1,000 mg PO BIDWMEAL 90 days pen needle, diabetic As directed to inject insulin once a day pen needle, diabetic (BD Ultra-Fine Short Pen Needle) As directed Tobacco use date assessed: 01/11/24 Dental Screening Dental Screen Date: 01/11/24 Did you have a dental visit in the last 12 months?: No Did you have a dental problem in the last 6 months where you did not have access to dental care?: No Was dental information given to patient?: Patient declined HPI [facility] smoking cessation [phone] HPI Details Telehealth visit made with 48-year-old female, here today for follow-up on her smoking cessation. Started on bupropion HCL 150 mg taken 1 tablet twice a day, which has been helping her quit smoking. Patient states that she has not had a cigarette for the last 3 weeks now. Denies any further cravings, no increased irritability mood swings noted after smoking cessation. She has diabetes mellitus currently on metformin a 1000 mg 1 tablet twice a day and currently on freestyle Laverne. Patient states that there was an instance where her blood sugar at night dropped to 53 mg/dL. On average however her blood sugar has been ranging from between 130-160 mg/dl, but still has occasional episodes of spiking in the 200s. She already has an appointment to see a beef selector later this month and will be make an appointment to see an data support analyst for retinopathy screening. Recent fasting labs showed lipids are within normal limits, currently on atorvastatin taking 20 mg daily. Has been trying to follow recommended diet, but admits to not getting much exercise still. Thyroid levels on recent labs showed elevated TSH with a low normal free T4 level. She is currently on levothyroxine 175 mcg daily in a.m.. [facility] Medical History (Updated 01/11/24 @ 09:39 by Evie Hickman MD) Former cigarette smoker Left anterior knee pain Diabetic neuropathy Ulcer of lower extremity due to diabetes Morbid obesity Diabetes mellitus with hyperglycemia, with long-term current use of insulin Anxiety and depression Toenail fungus Cigarette smoker motivated to quit Depression Type 2 diabetes mellitus with hyperglycemia, without long-term current use of insulin Multinodular thyroid Vitamin D deficiency Hypothyroidism HLD (hyperlipidemia) HTN (hypertension) T2DM (type 2 diabetes mellitus) Surgical History Umbilical hernia, incarcerated Pyloric stenosis Hx of cholecystectomy History of tooth extraction Family History Father Emphysema lung Substance use disorder Mother Atrial fibrillation Social History Housing: House Alcohol intake: never Patient Tobacco Use Status: Former Tobacco user Tobacco use type: Cigarette Cigarette Packs Per Day: 1 Cigarettes Per Day: 20 Years Smoked: 9 e-Cigarette/Vaping Use: Never Used service: No Current occupational status: employed Cognitive needs: No Hearing needs: No Vision needs: Yes Questionnaire Thrive Questionnaire Date Thrive assessed: 12/03/23 CODY-7 AMB Questionnaire CODY-7 Date CODY - 7 assessed: 12/03/23 Source: Developed by Drs. Jose Wei, Jayleen Hanson, Wyatt Jung and colleagues, with an educational margaret from [employer]. Review of Systems Const Denies fever(s), Denies headache(s), Denies malaise and Denies weakness Eyes Details: Overdue for a routine eye check and diabetes eye screen Denies change in vision ENT Denies dizziness, Denies headache(s), Denies nasal congestion, Denies nasal discharge and Denies sore throat Card Denies chest pain, Denies lightheadedness, Denies palpitations and Denies dyspnea Resp Denies chest congestion, Denies cough, Denies dyspnea and Denies wheezing GI Denies abdominal pain, Denies change in bowel habits and Denies heartburn Denies dysuria Musc Denies abnormal gait, Denies deformity, Reports arthralgias (Anterior left knee), Reports limited range of motion and Reports stiffness Skin/Breast Details: 02/13/24 dr De Leon Neuro Denies abnormal gait, Denies dizziness, Denies headache(s) and Denies weakness Endo Reports polyuria and Denies palpitations Aller/Immun Denies seasonal rhinorrhea and Denies wheezing Physical exam (Primary Care) Tobacco/Smoking Status: Tobacco use Status Tobacco use date assessed 01/11/24 01/11/24 09:13 Patient Tobacco Use Status Former Tobacco user 01/11/24 09:13 Tobacco use type Cigarette 01/11/24 09:13 e-Cigarette/Vaping Use Never Used 01/11/24 09:13 Thrive Assessment: Date of Thrive Assessment Date Thrive assessed 12/03/23 01/11/24 09:13 Telehealth Telehealth Telehealth Platform: [employer] Location of provider rendering services: practice address Location of patient: address on file Patient Identification confirmed using: Name, : Yes Telehealth method: video Patient verbally consented to treatment: Yes Patient verbally consented to billing insurance company: Yes Patient informed of any privacy concerns related to visit: Yes Minutes spent on Phone/Video with Pt.: 15 Results Reviewed Results Reviewed: Name: Pam Nvaarrete Age/Sex: 48/F : 1975 Unit#: [id number] Attend Dr: Evie Hickman MD Re01/09/24 Status: DEP REF Location: [facility] Disch: SPEC : [id number] LITO: 01/09/24 STATUS: COMP REQ : [id number] RECD: 01/09/[address]: Evie Hickman MD COMP: 01/09/24 ENTERED: 01/09/24-[address]: ORDERED: AST, ALT, Lipid Panel, Vitamin D 25-OH, Free T4, TSH Test Result Flag Reference AST (GOT) 22 5-31 U/L ALT (GPT) 22 0-31 U/L Triglyceride 118 <150 mg/dL Desirable Triglyceride: less than 150 mg/dL Borderline High Triglyceride 150-199 mg/dL High Triglyceride: 200-499 mg/dL Very High Triglyceride: greater than or equal to 5OO mg/dL Cholesterol 130 <200 mg/dL Desirable Cholesterol: less than 200 mg/dL Borderline High Cholesterol: 200-239 mg/dL High Cholesterol: greater than 239 mg/dL LDL Calculated 64 <100 mg/dL Desirable LDL: less than 100 mg/dL Near Optimal/Above Optimal LDL: 110-129 mg/dL Borderline High LDL: 130-159 mg/dL High LDL: 160-189 mg/dL Very High LDL: greater than or equal to 190 mg/dL HDL 43 >40 mg/dL Desirable HDL: greater than 40 mg/dL Note: This HDL assay may give artificially low results in patients with liver disease. Vit D 25-OH Tot 18.6 L >30 ng/mL Health Based Reference Values* < 20 ng/mL Deficient 20-30 ng/mL Insufficient > 30 ng/mL Sufficient *Nayla PEDROZA. N Engl J Med. 2007;[id number]:[phone] Care must be taken in interpreting Vitamin D results from different laboratories and methodologies. Published data demonstrated that results from patients undergoing hemodialysis may show a negative bias when tested with various automated 25-OH vitamin D assays when compared to LC-MS/MS. When testing samples from patients whose predominant form of Vitamin D is Vitamin D2, such as patients receiving Vitamin D2 supplementation, results that are subtherapeutic should be confirmed with another method such as LC-MS/MS. Free T4 0.75 0.71-1.85 ng/dL TSH 3rd Gen. 16.40 H 0.32-4.0 uIU/mL Note: A sustained TSH level above 2.5 uIU/mL may warrant further investigation. TSH 3rd Generation ([facility]) Assessment and Plan Assessment & Plan (1) Left anterior knee pain: Code(s): M25.562 - Pain in left knee Plan: Advised to take Tylenol arthritis 650 mg 1 tablet 3 twice a day as needed, prescription also sent for diclofenac gel 1% to massaged to affected joint 3 times a day as needed. Referred to orthopedics for further evaluation management (2) Screening for malignant neoplasm of cervix: Code(s): Z12.4 - Encounter for screening for malignant neoplasm of cervix Plan: Referred to [facility] [place] [facility] for her routine Pap and pelvic exam. (3) HLD (hyperlipidemia): Code(s): E78.5 - Hyperlipidemia, unspecified Qualifiers: Hyperlipidemia type: unspecified Qualified Code(s): E78.5 - Hyperlipidemia, unspecified Plan: Continue atorvastatin 20 mg daily, in addition to adhering to healthy eating habits, and getting regular exercise. (4) Hypothyroidism: Code(s): E03.9 - Hypothyroidism, unspecified Qualifiers: Hypothyroidism type: unspecified Qualified Code(s): E03.9 - Hypothyroidism, unspecified Plan: TSH and free T4 levels were discussed with patient, will increase levothyroxine dose to 200 mcg daily in a.m. repeat another TSH and free T4 in 3 month (5) Vitamin D deficiency: Code(s): E55.9 - Vitamin D deficiency, unspecified Plan: Continue with cholecalciferol 22090 units once a week (6) Toenail fungus: Code(s): B35.1 - Tinea unguium Plan: Has an appointment to see Dr. De Leon for follow-up (7) Anxiety and depression: Code(s): F41.9 - Anxiety disorder, unspecified; F32.A - Depression, unspecified Plan: Improving with bupropion HCL 150 mg 1 tablet twice a day (8) Diabetes mellitus with hyperglycemia, with long-term current use of insulin: Code(s): E11.65 - Type 2 diabetes mellitus with hyperglycemia; Z79.4 - 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 of insulin Plan: Improving with metformin a 1000 mg taken twice a day. (9) Former cigarette smoker: Code(s): Z87.891 - Personal history of nicotine dependence Plan: Continue bupropion 150 mg 1 tablet twice a day Orders: Orders MM tomosynthesis screening BI 01/11/24 Z12.31 - Encounter for screening mammogram for malignant neoplasm of breast Vitamin D 25-OH Total 04/01/24 B35.1 - Tinea unguium, E03.9 - Hypothyroidism, unspecified, E11.65 - Type 2 diabetes mellitus with hyperglycemia, E55.9 - Vitamin D deficiency, unspecified, E78.5 - Hyperlipidemia, unspecified, F32.A - Depression, unspecified, F41.9 - Anxiety disorder, unspecified, I10 - Essential (primary) hypertension, Z79.4 - detention (current) use of insulin, Z87.891 - Personal history of nicotine dependence Lipid Panel 04/01/24 B35.1 - Tinea unguium, E03.9 - Hypothyroidism, unspecified, E11.65 - Type 2 diabetes mellitus with hyperglycemia, E55.9 - Vitamin D deficiency, unspecified, E78.5 - Hyperlipidemia, unspecified, F32.A - Depression, unspecified, F41.9 - Anxiety disorder, unspecified, I10 - Essential (primary) hypertension, Z79.4 - 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 of 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65 - Type 2 diabetes mellitus with hyperglycemia, E55.9 - Vitamin D deficiency, unspecified, E78.5 - Hyperlipidemia, unspecified, F32.A - Depression, unspecified, F41.9 - Anxiety disorder, unspecified, I10 - Essential (primary) hypertension, Z79.4 - detention (current) use of insulin, Z87.891 - Personal history of nicotine dependence Free T4 (Free Thyroxine) 04/01/24 B35.1 - Tinea unguium, E03.9 - Hypothyroidism, unspecified, E11.65 - Type 2 diabetes mellitus with hyperglycemia, E55.9 - Vitamin D deficiency, unspecified, E78.5 - Hyperlipidemia, unspecified, F32.A - Depression, unspecified, F41.9 - Anxiety disorder, unspecified, I10 - Essential (primary) hypertension, Z79.4 - 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 of insulin, Z87.891 - Personal history of nicotine dependence Basic Metabolic Panel Fasting 04/01/24 B35.1 - Tinea unguium, E03.9 - Hypothyroidism, unspecified, E11.65 - Type 2 diabetes mellitus with hyperglycemia, E55.9 - Vitamin D deficiency, unspecified, E78.5 - Hyperlipidemia, unspecified, F32.A - Depression, unspecified, F41.9 - Anxiety disorder, unspecified, I10 - Essential (primary) hypertension, Z79.4 - detention (current) use of insulin, Z87.891 - Personal history of nicotine dependence Aspartate Amino Transferase 04/01/24 B35.1 - Tinea unguium, E03.9 - Hypothyroidism, unspecified, E11.65 - Type 2 diabetes mellitus with hyperglycemia, E55.9 - Vitamin D deficiency, unspecified, E78.5 - Hyperlipidemia, unspecified, F32.A - Depression, unspecified, F41.9 - Anxiety disorder, unspecified, I10 - Essential (primary) hypertension, Z79.4 - detention (current) use of insulin, Z87.891 - Personal history of nicotine dependence Referrals CALCULATION REVIEWER Referral Z12.4 - Encounter for screening for malignant neoplasm of cervix Orthopedics Referral M25.562 - Pain in left knee Medications: New levothyroxine Take in the morning an hour before breakfast, with glass of water 200 mcg PO DAILY 90 caps 1RF E03.9 - Hypothyroidism, unspecified Changed From bupropion HCl (smoking deter) Take 1 tablet once a day in a.m. for the 1st 3 days and then 1 tablet twice a day at least 8 hours apart. Do not take close to bed time 150 mg PO BID 60 tabs 1RF F32.A - Depression, unspecified, F41.9 - Anxiety disorder, unspecified To bupropion HCl (smoking deter) 150 mg PO BID 60 tabs 5RF F32.A - Depression, unspecified, F41.9 - Anxiety disorder, unspecified Refilled cholecalciferol (vitamin D3) 1,250 mcg PO QWEEK 13 caps 0RF 3 months E55.9 - Vitamin D deficiency, unspecified Discontinued levothyroxine Discontinued Reason: Doctor's Order 175 mcg PO QAM 90 tabs 1RF Coding Level of Care Code Tele Est Pt Level 4 (24253) Complex EM visit Add On G2211 Diagnoses Left anterior knee pain M25.562 Screening for malignant neoplasm of cervix Z12.4 Hyperlipidemia, unspecified hyperlipidemia type E78.5 Hyperlipidemia type: unspecified Hypothyroidism, unspecified type E03.9 Hypothyroidism type: unspecified Vitamin D deficiency E55.9 Toenail fungus B35.1 Anxiety and depression F41.9; F32.A Diabetes mellitus with hyperglycemia, with long-term current use of insulin E11.65; Z79.4 Former cigarette smoker Z87.891
== END 2024-01-11 11:54 | disposition home or self-care (01) ==
LOC: HO.HMGC 09:13
PROVIDERS: PCP Internal Medicine; Visit Provider Internal Medicine
DX: M25.562 Pain in left knee (principal); Z12.4 Encounter for screening for malignant neoplasm of cervix; E78.5 Hyperlipidemia, unspecified; E03.9 Hypothyroidism, unspecified; E55.9 Vitamin D deficiency, unspecified; B35.1 Tinea unguium; F41.9 Anxiety disorder, unspecified; F32.A Depression, unspecified; E11.65 Type 2 diabetes mellitus with hyperglycemia; Z79.4 Long term (current) use of insulin; Z87.891 Personal history of nicotine dependence
CPT/HCPCS: 99214

== ENCOUNTER 2024-01-23 13:22 | Outpatient (AMB) | payer OTHER, SELFPAY ==
--- NOTE | 2024-01-23 13:26 | A.OFFVIS_ITS ---
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 Most recent HbA1c: 11.0%, 11/23/2023 Random Glucose- 150 mg/dL, Today Director Statistical Programming Required: No Accompanied by: Self / Same As Patient Allergies doxycycline Adverse Reaction (Verified 01/23/24 13:26) GI upset Medication List - Last Reconciled 01/23/24 by Sylwia Ennis MD atorvastatin 20 mg PO DAILY blood-glucose sensor (FreeStyle Laverne 3 Sensor device) As directed to test blood sugar 4 times per day blood-glucose sensor (FreeStyle Laverne 3 Sensor device) As directed bupropion HCl (smoking deter) 150 mg PO BID cholecalciferol (vitamin D3) 1,250 mcg PO QWEEK 3 months FreeStyle Lite Meter (blood-glucose meter) As directed NS FreeStyle Lite Strips (blood sugar diagnostic) check fasting blood sugartwice a day AC NS lancets (FreeStyle Lancets) test blood sugars twice a day lancets check blood sugar twice a day before meals As directed levothyroxine 200 mcg PO DAILY metformin 1,000 mg PO BIDWMEAL 90 days pen needle, diabetic As directed to inject insulin once a day pen needle, diabetic (BD Ultra-Fine Short Pen Needle) As directed HPI Comments Details: The patient is a 48 year old female with a past medical history of type 2 diabetes, hypothyroid, depression presenting for diabetic follow up Micro and macrovascular complications: +neuropathy, PVD, diabetic wounds. Follows wound clinic Current medication prescribed: Metformin 1000mg twice daily Last A1C today 11.0% 11/23/23. CGM freestyle laverne 3 download from one month ago (patient did not bring today) downloaded A1C 6.8%, 93% within target, high 7%. Patient explains that when A1C was taken in October she was had not been taking her metformin x months. She was having a flare in depressive symptoms at the time and so wasnt taking medications or watching her diet Hypoglycemia: a few episodes in past 2-3 weeks per patient. 50s, symptomatic. resolved with food. [id number] Overdue podiatry-has appt booked for march Exercise: none Also has hypothyroid. Last TSH elevated, levothyroxine increased to 200mcg daily. Patient says she misses many doses. ln september/october was not taking any. ROS CONSTITUTIONAL: Denies weight loss, fever and chills. HEENT: Denies changes in vision and hearing. RESPIRATORY: Denies SOB and cough. CV: Denies palpitations and CP GI: Denies abdominal pain, nausea, vomiting and diarrhea. : Denies dysuria and urinary frequency. MSK: Denies new myalgia and joint pain. SKIN: Toenail & foot fungus NEUROLOGICAL: Denies headache PSYCHIATRIC: Denies recent changes in mood. PHYSICAL EXAM: GENERAL: Alert and oriented x 3. NAD EYES: EOMI. Anicteric. HENT: Moist mucous membranes. No scleral icterus. No cervical lymphadenopathy. LUNGS: Clear to auscultation bilaterally. CARDIOVASCULAR: Regular rate and rhythm. No murmur. No JVD. ABDOMEN: Soft, non-tender +bs EXTREMITIES:1+dp pulses b/l SKIN: Two ulcerations of anterior lower leg. Thick onychomycoses and tinea pedis NEUROLOGIC: No focal neurological deficits. CN II-XII grossly intact PSYCHIATRIC: Cooperative. Appropriate mood and affect [facility]LY [facility] Medical History Former cigarette smoker Left anterior knee pain Diabetic neuropathy Ulcer of lower extremity due to diabetes Morbid obesity Diabetes mellitus with hyperglycemia, with long-term current use of insulin Anxiety and depression Toenail fungus Cigarette smoker motivated to quit Depression Type 2 diabetes mellitus with hyperglycemia, without long-term current use of insulin Multinodular thyroid Vitamin D deficiency Hypothyroidism HLD (hyperlipidemia) HTN (hypertension) T2DM (type 2 diabetes mellitus) Surgical History Umbilical hernia, incarcerated Pyloric stenosis Hx of cholecystectomy History of tooth extraction Family History Father Emphysema lung Substance use disorder Mother Atrial fibrillation Social History Housing: House Alcohol intake: never Patient Tobacco Use Status: Former Tobacco user Tobacco use type: Cigarette Cigarette Packs Per Day: 1 Cigarettes Per Day: 20 Years Smoked: 9 e-Cigarette/Vaping Use: Never Used service: No Current occupational status: employed Cognitive needs: No Hearing needs: No Vision needs: Yes Physical Exam Vital Signs: Last Vital Signs Pulse 95 01/23/24 13:29 BP 122/78 01/23/24 13:29 BMI result Body Mass Index 39.2 Results Reviewed Results Reviewed: Laboratory Last Values Glucose (Clinic) 150 mg/dL (60-115) H 01/23/24 13:35 Assessment & Plan Assessment & Plan (1) Type 2 diabetes mellitus with hyperglycemia: Code(s): E11.65 - Type 2 diabetes mellitus with hyperglycemia Category: Medical Qualifiers: Diabetes mellitus tank terminal gauger insulin use: unspecified fdc insulin use status Qualified Code(s): E11.65 - Type 2 diabetes mellitus with hyperglycemia Plan: Controlled now that medication compliant She is having some low BG-she will decrease metformin from 2000mg daily to 1500mg daily Bring meter to next visit Labs prior to visit (2) Diabetic neuropathy: Code(s): E11.40 - Type 2 diabetes mellitus with diabetic neuropathy, unspecified Category: Medical Qualifiers: Diabetes mellitus type: type 2 Diabetes mellitus complication detail: diabetic polyneuropathy Qualified Code(s): E11.42 - Type 2 diabetes mellitus with diabetic polyneuropathy Plan: stable (3) Ulcer of lower extremity due to diabetes: Code(s): E11.622 - Type 2 diabetes mellitus with other skin ulcer; L97.909 - Non-pressure chronic ulcer of unspecified part of unspecified lower leg with unspecified severity Category: Medical Plan: continue follow up with wound care (4) Morbid obesity: Code(s): E66.01 - Morbid (severe) obesity due to excess calories Category: Medical Plan: On wellbutrin (5) Toenail fungus: Code(s): B35.1 - Tinea unguium Category: Medical Plan: checked LFTs-normal Start oral terbinafine -lfts q3 weeks (6) Hypothyroidism: Code(s): E03.9 - Hypothyroidism, unspecified Category: Medical Qualifiers: Hypothyroidism type: unspecified Qualified Code(s): E03.9 - Hypothyroidism, unspecified Plan: Talked about improved medication compliance Orders: Orders Comprehensive Met. Panel 6 Weeks B35.1 - Tinea unguium Comprehensive Met. Panel 9 Weeks B35.1 - Tinea unguium Comprehensive Met. Panel 12 Weeks B35.1 - Tinea unguium Hemoglobin A1c 3 Months B35.1 - Tinea unguium, E03.9 - Hypothyroidism, unspecified, E11.65 - Type 2 diabetes mellitus with hyperglycemia, Z79.4 - tank terminal gauger (current) use of insulin TSH reflex Free T4 3 Months B35.1 - Tinea unguium, E03.9 - Hypothyroidism, unspecified, E11.65 - Type 2 diabetes mellitus with hyperglycemia, Z79.4 - tank terminal gauger (current) use of insulin Comprehensive Met. Panel 3 Months B35.1 - Tinea unguium, E03.9 - Hypothyroidism, unspecified, E11.65 - Type 2 diabetes mellitus with hyperglycemia, Z79.4 - tank terminal gauger (current) use of insulin Comprehensive Met. Panel 3 Weeks B35.1 - Tinea unguium Medications: New metformin ER 1,500 mg (3 x 500 mg) PO DAILY 270 tabs 3RF terbinafine HCl 250 mg PO DAILY 12 weeks 84 tabs 0RF Discontinued metformin Discontinued Reason: Doctor's Order 1,000 mg PO BIDWMEAL 90 days 180 tabs 1RF E11.65 - Type 2 diabetes mellitus with hyperglycemia Coding Level of Care Code Tele Est Pt Level 5 (99677) Diagnoses Type 2 diabetes mellitus with hyperglycemia, unspecified whether tank terminal gauger insulin use E11.65 Diabetes mellitus tank terminal gauger insulin use: unspecified fdc insulin use status Diabetic polyneuropathy associated with type 2 diabetes mellitus E11.42 Diabetes mellitus type: type 2 Diabetes mellitus complication detail: diabetic polyneuropathy Ulcer of lower extremity due to diabetes E11.622; L97.909 Morbid obesity E66.01 Toenail fungus B35.1 Hypothyroidism, unspecified type E03.9 Hypothyroidism type: unspecified Time Spent (min) 62
[2024-01-23 13:29] VITALS: BP 122/78; PULSE 95; BMI 39.2
[2024-01-23 13:39] LABS: Glucose, Whole Blood 150 mg/dL (60-115)
== END 2024-01-23 14:24 | disposition home or self-care (01) ==
PROVIDERS: PCP Internal Medicine; Visit Provider Internal Medicine
DX: E11.65 Type 2 diabetes mellitus with hyperglycemia (principal); E11.42 Type 2 diabetes mellitus with diabetic polyneuropathy; E11.622 Type 2 diabetes mellitus with other skin ulcer; L97.909 Non-pressure chronic ulcer of unspecified part of unspecified lower leg with unspecified severity; E66.01 Morbid (severe) obesity due to excess calories; B35.1 Tinea unguium; E03.9 Hypothyroidism, unspecified
CPT/HCPCS: 99215

== ENCOUNTER → 2024-01-23 13:22 | Outpatient (BNVA) | payer OTHER, SELFPAY | PROVIDERS: PCP Internal Medicine; Visit Provider Internal Medicine | DX: E11.65 Type 2 diabetes mellitus with hyperglycemia (principal); E11.42 Type 2 diabetes mellitus with diabetic polyneuropathy; E11.622 Type 2 diabetes mellitus with other skin ulcer; L97.909 Non-pressure chronic ulcer of unspecified part of unspecified lower leg with unspecified severity; E66.01 Morbid (severe) obesity due to excess calories; Z68.39 Body mass index [BMI] 39.0-39.9, adult; B35.1 Tinea unguium; E03.9 Hypothyroidism, unspecified; Z79.84 Long term (current) use of oral hypoglycemic drugs | CPT/HCPCS: 82947 ==

== ENCOUNTER 2024-02-14 10:31 | Outpatient (REF) | payer OTHER, SELFPAY ==
--- NOTE | ~2024-02-14 | US_ITS ---
EXAMINATION: US THYROID CLINICAL INFORMATION: Hypothyroidism. COMPARISON: 06/02/2020. TECHNIQUE: Linear transducer grayscale and color Doppler examination with attention to the region of the thyroid. FINDINGS: SIZE: Measurements of the thyroid lobes and nodules are given in sagittal, anteroposterior and transverse dimensions respectively. Right Thyroid Lobe: 3.0 x 1.0 x 1.5 cm, volume 2.2 mL. Parenchyma: The gland echotexture is heterogeneous. Thyroid vascularity is normal. Left Thyroid Lobe: 3.4 x 1.0 x 1.0 cm, volume 1.8 mL. Parenchyma: The gland echotexture is heterogeneous. Thyroid vascularity is normal. Isthmus: 0.37 cm in maximum AP dimension. Estimated total number of nodules greater than or equal to 1 cm: 1. Sr. Payroll Manager nodules are described as follows: 1. Location: Right lower. Size: 0.6 x 0.5 x 0.5 cm, volume 0.08 mL. Nodule characteristics: Composition: Solid (2). Echogenicity: Hypoechoic (2). Shape: Not taller than wide (0). Margins: Smooth (0). Echogenic Foci: ACR TI-RADS total points: 4 ACR TI-RADS category: 4 2. Location: Right mid. Size: 1.5 x 1.2 x 1.1 cm, volume 1.1 mL. Previously 1.6 x 1.2 x 1.0 cm, volume 1.0 mL Nodule characteristics: Composition: Solid (2). Echogenicity: Hypoechoic (2). Shape: Taller than wide (3). Margins: Smooth (0). Echogenic Foci: Punctate echogenic foci (3). ACR TI-RADS total points: 10 ACR TI-RADS category: 5 NODES: No lymphadenopathy is seen in the tissue surrounding the thyroid gland. US/US thyroid IMPRESSION: 1. A 1.5 cm right mid TR 5 thyroid nodule meets criteria for biopsy. Fine-needle aspiration recommended if not already performed. 2. The thyroid gland is extremely heterogeneous. Substantially limited visualization due to body habitus and thyroid heterogeneity. This study was presented to me on March 05, 2024 for interpretation. PSA staff will provide results to referring provider at this time. ACR TI-RADS RECOMMENDATION REFERENCE: Ultrasound-guided fine-needle aspiration, followup ultrasound, no further follow up. * TR1 (0 point) and TR2 (2 points): No FNA or follow up. * TR3 (3 points): FNA if more than or equal to 2.5 cm in maximum dimension, followup ultrasound in 1, 3 and 5 years if 1.5 to 2.4 cm in maximum dimension. * TR4 (4-6 points): FNA if more than or equal to 1.5 cm in maximum dimension, followup ultrasound in 1, 2, 3 and 5 years if 1 to 1.4 cm in maximum dimension. * TR5 (more than or equal to 7 points): FNA if more than or equal to 1 cm in maximum dimension, followup ultrasound every year for 5 years if 0.5 to 0.9 cm in maximum dimension. * TR3, TR4 or TR5 nodules that are below the size threshold for followup receive no follow up. Electronically signed by: Vivien Dennis MD 03/05/2024 07:00 AM EDT
== END 2024-02-14 10:32 | disposition home or self-care (01) ==
LOC: HO.HMGCX 10:31
PROVIDERS: PCP Internal Medicine; Visit Provider Internal Medicine
DX: E04.1 Nontoxic single thyroid nodule (principal)
CPT/HCPCS: 76536

== ENCOUNTER 2024-02-15 09:17 | Outpatient (REF) | payer OTHER, SELFPAY ==
--- NOTE | ~2024-02-15 | XR_ITS ---
EXAMINATION: XR KNEE, RIGHT XR KNEE, LEFT CLINICAL INFORMATION: Right and left knee pain. COMPARISON: Left knee radiographs dated 05/10/2023 and right knee radiographs dated 12/21/2017. TECHNIQUE: AP standing view of the right and left knee. Lateral and sunrise views of the left knee. FINDINGS: RIGHT KNEE: Mild medial compartment joint space narrowing, unchanged. Small patellofemoral marginal osteophytes. No acute fracture or dislocation. No concerning lytic or blastic osseous lesion. LEFT KNEE: Moderate patellofemoral as well as mild medial and lateral joint space narrowing with tricompartmental marginal osteophytes. No acute fracture or dislocation. Superior and inferior patellar enthesophytes. Ossified loose body superior to the patella measuring up to 1.9 cm. Atherosclerotic calcifications. XR/XR knee RT 1V IMPRESSION: RIGHT KNEE: Mild medial and patellofemoral compartment osteoarthritis, unchanged. LEFT KNEE: [id number]-br-xoqlpyod tricompartmental osteoarthritis, unchanged. Ossified loose body measuring up to 1.9 cm superior to the patella. Electronically signed by: Marcin Martins MD 03/12/2024 08:57 PM EDT
--- NOTE | ~2024-02-15 | XR_ITS ---
EXAMINATION: XR KNEE, RIGHT XR KNEE, LEFT CLINICAL INFORMATION: Right and left knee pain. COMPARISON: Left knee radiographs dated 05/10/2023 and right knee radiographs dated 12/21/2017. TECHNIQUE: AP standing view of the right and left knee. Lateral and sunrise views of the left knee. FINDINGS: RIGHT KNEE: Mild medial compartment joint space narrowing, unchanged. Small patellofemoral marginal osteophytes. No acute fracture or dislocation. No concerning lytic or blastic osseous lesion. LEFT KNEE: Moderate patellofemoral as well as mild medial and lateral joint space narrowing with tricompartmental marginal osteophytes. No acute fracture or dislocation. Superior and inferior patellar enthesophytes. Ossified loose body superior to the patella measuring up to 1.9 cm. Atherosclerotic calcifications. XR/XR knee LT 3V IMPRESSION: RIGHT KNEE: Mild medial and patellofemoral compartment osteoarthritis, unchanged. LEFT KNEE: [id number] tricompartmental osteoarthritis, unchanged. Ossified loose body measuring up to 1.9 cm superior to the patella. Electronically signed by: Marcin Martins MD 03/12/2024 08:57 PM EDT
== END 2024-02-15 09:18 | disposition home or self-care (01) ==
LOC: HO.HOSX 09:17
PROVIDERS: PCP Internal Medicine; Visit Provider Physician Assistant
DX: M25.569 Pain in unspecified knee (principal); M17.0 Bilateral primary osteoarthritis of knee
CPT/HCPCS: 73560; 73562

== ENCOUNTER 2024-02-15 10:31 | Outpatient (AMB) | payer OTHER, SELFPAY ==
--- NOTE | 2024-02-15 10:42 | A.OFFVIS_ITS ---
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 Patient reports that she has had pain since May 10 2021, She explains that on this day the knee locked and she went to sit down and had a sudden significant pain. After this she was only comfortable with the knee in full extension. She was instructed to use marcella wrap for compression which did help. No history of injections or surgeries. She takes tylenol which occasionally helps. She has also tried and failed at least 6 weeks of co nservative treatment - and home exercise program. 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 Patient reports that she has had pain since May 10 2021, She explains that on this day the knee locked and she went to sit down and had a sudden significant pain. After this she was only comfortable with the knee in full extension. She was instructed to use marcella wrap for compression which did help. No history of injections or surgeries. She takes tylenol which occasionally helps. She has also tried and failed at least 6 weeks of conservative treatment - and home exercise program. [facility] Medical History Former cigarette smoker Left anterior knee pain Diabetic neuropathy Ulcer of lower extremity due to diabetes Morbid obesity Diabetes mellitus with hyperglycemia, with long-term current use of insulin Anxiety and depression Toenail fungus Cigarette smoker motivated to quit Depression Type 2 diabetes mellitus with hyperglycemia, without long-term current use of insulin Multinodular thyroid Vitamin D deficiency Hypothyroidism HLD (hyperlipidemia) HTN (hypertension) T2DM (type 2 diabetes mellitus) Surgical History Umbilical hernia, incarcerated Pyloric stenosis Hx of cholecystectomy History of tooth extraction Family History Father Emphysema lung Substance use disorder Mother Atrial fibrillation Social History Housing: House Alcohol intake: never Patient Tobacco Use Status: Former Tobacco user Tobacco use type: Cigarette Cigarette Packs Per Day: 1 Cigarettes Per Day: 20 Years Smoked: 9 e-Cigarette/Vaping Use: Never Used service: No Current occupational status: employed Cognitive needs: No Hearing needs: No Vision needs: Yes Physical Exam Vital Signs: BMI result Body Mass Index 39.2 Extrem Other: Bilateral knee effusions Bilateral gait antalgia Retropatellar tenderness to palpation laterally bilaterally right worse than left Results Reviewed Results Reviewed: I personally reviewed relevant radiographs. Severe patellofemoral osteoarthritis bilateral knees Assessment & Plan Assessment & Plan (1) Type 2 diabetes mellitus with hyperglycemia: Code(s): E11.65 - Type 2 diabetes mellitus with hyperglycemia Category: Medical Qualifiers: Diabetes mellitus termite control servicer insulin use: unspecified care home insulin use status Qualified Code(s): E11.65 - Type 2 diabetes mellitus with hyperglycemia Plan: She is working on blood sugar control. Steroids relative contraindication (2) Osteoarthritis of knees, bilateral: Code(s): M17.0 - Bilateral primary osteoarthritis of knee Category: Medical Plan: This is a 48-year-old woman with bilateral knee osteoarthritis. He has mostly patellofemoral. Her situation is complicated by diabetes and obesity. I do not recommend further steroid injections. I discussed treatment options and recommend viscosupplementation. (3) Morbid obesity: Code(s): E66.01 - Morbid (severe) obesity due to excess calories Category: Medical Plan: She is working on weight loss but can not walk because of her knees Orders: Orders XR knee LT 3V 02/15/24 M25.569 - Pain in unspecified knee Coding Level of Care Code Est Pt Level 4 (58296) Complex EM visit Add On G2211 Diagnoses Type 2 diabetes mellitus with hyperglycemia, unspecified whether termite control servicer insulin use E11.65 Diabetes mellitus termite control servicer insulin use: unspecified care home insulin use status Osteoarthritis of knees, bilateral M17.0 Morbid obesity E66.01
[2024-02-15 10:52] VITALS: BMI 39.2
== END 2024-02-15 11:22 | disposition home or self-care (01) ==
PROVIDERS: PCP Internal Medicine; Visit Provider Orthopaedic Surgery
DX: M17.0 Bilateral primary osteoarthritis of knee (principal); E11.65 Type 2 diabetes mellitus with hyperglycemia; E66.01 Morbid (severe) obesity due to excess calories
CPT/HCPCS: 99213

== ENCOUNTER → 2024-04-09 08:50 | Outpatient (BNVA) | payer OTHER, SELFPAY | PROVIDERS: PCP Internal Medicine ==

== ENCOUNTER → 2024-04-24 11:57 | Outpatient (BNVA) | payer OTHER, SELFPAY | PROVIDERS: PCP Internal Medicine ==

== ENCOUNTER → 2024-05-09 08:56 | Outpatient (BNVA) | payer OTHER, SELFPAY | PROVIDERS: PCP Internal Medicine ==

== ENCOUNTER → 2024-05-23 10:49 | Outpatient (BNVA) | payer OTHER, SELFPAY | PROVIDERS: PCP Internal Medicine ==

== ENCOUNTER → 2024-09-26 08:49 | Outpatient (BNVA) | payer OTHER, SELFPAY | PROVIDERS: PCP Internal Medicine ==

== ENCOUNTER → 2024-10-17 09:30 | Outpatient (BNVA) | payer OTHER, SELFPAY | PROVIDERS: PCP Internal Medicine ==

== ENCOUNTER 2024-12-17 11:35 | Outpatient (AMB) | payer OTHER, SELFPAY ==
[2024-12-17 11:45] VITALS: BP 128/86; PULSE 87; TEMP 36.8; O2SAT 96; BMI 40.6
--- NOTE | 2024-12-17 11:45 | AM.OFFWIN_ITS ---
Intake Vital Signs 12/17/24 11:45 Height 5 ft 10 in Weight 283 lb 4 oz BMI 40.6 BP 128/86 Blood Pressure Location Lt brachial Position Sitting Pulse 87 Pulse Source Pulse Oximeter Temp 98.2 F Temp Source Oral Pulse Oximetry (%) 96 Oxygen Delivery Method Room Air Intake Visit Reasons: EP Ulcer on lt toe Intake Note: Pt presents to the office today for c/o ulcer on her left ring toe. Pt states this started a few weeks ago and is very painful. Patient Tobacco Use Status: Current everyday Tobacco user Allergies doxycycline Adverse Reaction (Verified 12/17/24 11:48) GI upset HPI HPI Comments History of Present Illness Details History of Present Illness - The patient is a 49-year-old female pr esenting with left 5th toe pain. - She has a sore on the left 4th toe, ca using discomfort, initially noted when it was digging into the pinky toe. - The swelling and sore were observed a few weeks ago, worsening to the current swollen state. - Swelling is apparent on the right foot , and discomfort is reported, despite the ulcer being dry with no pus or open wounds. - She has underlying diabetes mellitus b ut has not sought wound center care for this issue. - She attributes the delay in seeking ad equate care to a long work schedule and financial constraints after the loss of family support. - She has been to a punch machine hand in the [facility] for nail care. - She states that she bought a shoe to w ear from [facility] due to the foot being swollen. - She denies numbness, tingling, fever, chills, discharge or bleeding. Physical Exam General: Cooperative, healthy appearing, comfortable, no acute distress and well developed Respiratory: Normal respiratory effort and able to speak in complete sentences. Clear to auscultation bilaterally Cardiovascular: Regular rate and rhythm. Normal S1 and S2 Skin: No rashes or lesions noted. Hard, non-tender, dry, blackened ulcer on the left 4th toe. Erythema noted on the 5th toe. White flaking noted all over the feet. Hardended yellow thick toenails noted. Neuro: Sensation intact. Extremities: Left foot is erythematous and swollen. No pus, ulcer present on left 4th toe, dry. Normal to inspection otherwise. Ambulates with a steady gait. Strength is 5/5 on the LE bilaterally. FROM of the digits on the left, left ankle and knee. No calf tenderness noted. Patient was informed and verbally consented to the use of an ambient scribe for clinic note documentation during this visit. [facility] Medical History Former cigarette smoker Left anterior knee pain Diabetic neuropathy Ulcer of lower extremity due to diabetes Morbid obesity Diabetes mellitus with hyperglycemia, with long-term current use of insulin Anxiety and depression Toenail fungus Cigarette smoker motivated to quit Depression Type 2 diabetes mellitus with hyperglycemia, without long-term current use of insulin Multinodular thyroid Vitamin D deficiency Hypothyroidism HLD (hyperlipidemia) HTN (hypertension) T2DM (type 2 diabetes mellitus) Surgical History Umbilical hernia, incarcerated Pyloric stenosis Hx of cholecystectomy History of tooth extraction Family History Father Emphysema lung Substance use disorder Mother Atrial fibrillation Social History Housing: House Alcohol intake: never Patient Tobacco Use Status: Current everyday Tobacco user Tobacco use type: Cigarette Cigarette Packs Per Day: 1 Cigarettes Per Day: 20 Years Smoked: 9 e-Cigarette/Vaping Use: Never Used service: No Current occupational status: employed Cognitive needs: No Hearing needs: No Vision needs: Yes Review of Systems Const All systems reviewed & are unremarkable except as noted in HPI and below Physical Exam Vital Signs: Last Vital Signs Temp 98.2 F 12/17/24 11:45 Pulse 87 12/17/24 11:45 BP 128/86 12/17/24 11:45 Pulse Ox 96 12/17/24 11:45 Oxygen Delivery Method Room Air 12/17/24 11:45 BMI result Body Mass Index 40.6 Assessment & Plan Assessment & Plan (1) Swelling of left foot: Code(s): M79.89 - Other specified soft tissue disorders Plan Most likely diabetic foot ulcer vs cellulitis vs osteomyelitis Plan - will order an x-ray in the office - will give her a boot for her foot - rest and elevate her foot - will have the social sciences department chair speak with the patient - Keflex QID for 7 days - Doxycycline 100 mg BID for 7 days- aware of the GI upset - Tylenol as needed for pain - Needs a f/u in one week - Will make her an appt with her PCP Orders: Orders XR foot LT min 3V Today M79.89 - Other specified soft tissue disorders Medications: New cephalexin 500 mg PO Q6H 28 caps 0RF 7 days doxycycline hyclate 100 mg PO bid 14 tabs 0RF 7 days Coding Level of Care Code Est Pt Level 4 (50650) Diagnoses Swelling of left foot M79.89
== END 2024-12-17 13:38 | disposition home or self-care (01) ==
PROVIDERS: PCP Internal Medicine; Visit Provider Physician Assistant Medical
DX: M79.89 Other specified soft tissue disorders (principal)

== ENCOUNTER 2024-12-17 12:56 | Outpatient (REF) | payer OTHER, SELFPAY ==
--- NOTE | ~2024-12-17 | XR_ITS ---
EXAMINATION: XR FOOT, LEFT CLINICAL INFORMATION: M79.89 - Other specified soft tissue disorders COMPARISON: None available. TECHNIQUE: AP, lateral, and oblique views of the left foot. FINDINGS: There appears to be soft tissue thickening and soft tissue gas in the lateral aspect of the fourth digit, in the region of the PIP joint. Additionally, there is thin linear calcified density lateral to the central diaphysis of the proximal phalanx that could represent periosteal new bone formation. There is soft tissue swelling in the dorsal midfoot forefoot junction and in the ball of foot. There is multifocal ossification in the Achilles tendon. There are large calcaneal enthesophytes at the Achilles and posterior fascial attachments. XR/XR foot LT min 3V IMPRESSION: Soft tissue swelling and suspected soft tissue gas in the lateral fourth digit raises question of overlying skin ulceration or penetrating trauma. Subtle periosteal new bone formation along the lateral metaphysis of the proximal phalanx raises question of osteitis or osteomyelitis. Achilles tendon ossification. This can be related to repetitive microtrauma or remote macrotrauma. Electronically signed by: Drake Stephens MD 12/17/2024 01:46 PM EDT
== END 2024-12-17 12:57 | disposition home or self-care (01) ==
LOC: HO.HMGCX 12:56
PROVIDERS: PCP Internal Medicine; Visit Provider Physician Assistant Medical
DX: M79.89 Other specified soft tissue disorders (principal)
CPT/HCPCS: 73630

== ENCOUNTER → 2024-12-17 13:04 | Outpatient (BNV) | payer OTHER, SELFPAY | PROVIDERS: PCP Internal Medicine; Visit Provider Radiology Diagnostic Radiology | DX: R22.42 Localized swelling, mass and lump, left lower limb (principal) | CPT/HCPCS: 73630 ==

== ENCOUNTER 2024-12-17 15:33 | Inpatient (IN) | payer OTHER, SELFPAY ==
--- NOTE | ~2024-12-17 | MR_ITS ---
CLINICAL HISTORY: L 4th toe infected ulcer, puruent discharge,?osteo MR leftfoot no with and without gadolinium Comparison: None provided Findings: No acute fractures. No pathologic bone lesions. No effusion. There is dorsal subcutaneous edema. Correlate for cellulitis. There are no focal masses or fluid collections. There are marrow signal changes in the 4th toe proximal phalanx possibly related to osteomyelitis. Remaining bony structures are intact with alignment maintained. Regional ligamentous and tendinous structures are intact. IMPRESSION: Possible dorsal cellulitis with developing 4th toe proximal phalangeal osteomyelitis. Clinical follow-up recommended. This document has been electronically signed by: Darwin Freeman MD on 12/18/2024 20:03:29
[2024-12-17 15:40] VITALS: BP 178/107; PULSE 93; RESP 16; TEMP 36.4; O2SAT 97; BMI 40.5
--- NOTE | 2024-12-17 15:47 | ED_ITS ---
HPI - General Adult General Chief complaint: Extremity Problem Stated complaint: Cellulitis L foot, sent from clinic Time Seen by Provider: 12/17/24 18:14 Source: patient Limitations: no limitations History of Present Illness ED Provider: Haley Galvin PA-C HPI narrative: 49-year-old female with a history of morbid obesity, diabetes, onychomycosis, tobacco abuse, arthritis, hypothyroidism, hyperlipidemia and hypertension who presents with left foot infection for weeks. Patient is not sure when she developed an ulceration over her 4th digit. She developed a foul smell, which prompted her assessment at urgent Care. Patient was advised to come to the emergency department for further assessment. Denies fever. Related Data Previous Rx's ?Medication ?Instructions ?Recorded lancets 28 gauge #100 ea 09/06/21 atorvastatin 20 mg tablet 20 mg PO DAILY #90 tabs 10/31 12/23 pen needle, diabetic 32 gauge x #100 ea 11/27/2311/14 pen needle, diabetic 31 gauge x #100 ea 12/01/2311/14 (BD Ultra-Fine Short Pen Needle) FreeStyle Lite Meter #1 ea 12/06/23 (blood-glucose meter) FreeStyle Lite Strips (blood sugar #100 ea 12/06/23 diagnostic) lancets 28 gauge (FreeStyle #200 ea 12/06/23 Lancets) bupropion HCl (smoking deter) 150 150 mg PO BID #60 ta bs 01/11/24 mg tablet,12 hr sustained-release(smoking deterrent) cholecalciferol (vitamin D3) 1,250 1,250 mcg PO QWEEK 3 months #13 01/11/24 mcg (50,000 unit) capsule caps levothyroxine 200 mcg tablet 200 mcg PO DAILY #90 tabs 01/18/24 metformin 500 mg tablet,extended 1,500 mg (3 x 500 mg) PO DAILY 01/23/24 release 24 hr #270 tabs terbinafine HCl 250 mg tablet 250 mg PO DAILY 12 weeks #84 tabs 01/23/24 blood-glucose sensor (FreeStyle #2 ea 05/12/24 Laverne 3 Sensor device) cephalexin 500 mg capsule 500 mg PO Q6H 7 days #28 cap s 12/17/24 doxycycline hyclate 100 mg tablet 100 mg PO bid 7 days #14 tabs 12/17/24 Allergies Allergy/AdvReac Type Severity Reaction Status Date / Time doxycycline AdvReac GI upset Verified 12/17/24 15:41 PMFSH Past Medical History Medical History Former cigarette smoker Left anterior knee pain Diabetic neuropathy Ulcer of lower extremity due to diabetes Morbid obesity Diabetes mellitus with hyperglycemia, with long-term current use of insulin Anxiety and depression Toenail fungus Cigarette smoker motivated to quit Depression Type 2 diabetes mellitus with hyperglycemia, without long-term current use of insulin Multinodular thyroid Vitamin D deficiency Hypothyroidism HLD (hyperlipidemia) HTN (hypertension) T2DM (type 2 diabetes mellitus) Surgical History Umbilical hernia, incarcerated Pyloric stenosis Hx of cholecystectomy History of tooth extraction Family History Family History Father Emphysema lung Substance use disorder Mother Atrial fibrillation Social History Social History Housing: House Alcohol intake: never Patient Tobacco Use Status: Current everyday Tobacco user Tobacco use type: Cigarette Cigarette Packs Per Day: 1 Cigarettes Per Day: 20 Years Smoked: 9 Smoked in Last 30 Days: Yes e-Cigarette/Vaping Use: Never Used Advance Directives: No Advance Directives Information Provided: No Do you have a plan to hurt others: No Plan service: No Current occupational status: employed Cognitive needs: No Hearing needs: No Vision needs: Yes Physical Exam ED Vital Signs: Vital Signs - 24 hr 12/17/24 15:40 12/17/24 17:55 12/17/24 19:03 Temperature 97.5 F 98 F 98.2 F Pulse Rate 93 89 80 Respiratory Rate 16 15 18 Blood Pressure 178/107 H 165/84 H 123/69 Pulse Oximetry 97 97 92 Oxygen Delivery Method Room Air Room Air Room Air 12/17/24 20:00 Temperature 98.2 F Pulse Rate 77 Respiratory Rate 16 Blood Pressure 119/67 Pulse Oximetry 94 Oxygen Delivery Method Room Air BMI result Body Mass Index 40.5 Extrem Other: Course Course Course Narrative: RME, this is a rapid medical exam performed by Franklyn Rosales please refer to primary provider for complete H&P- 49-year-old female presents for evaluation of left 4th toe infection. She had an outpatient x-ray today that showed concern for osteomyelitis. She went to urgent care today and then was referred to return to the ED due to osteomyelitis. Vital signs are stable in triage Medications Administered Discontinued Medications Generic Name Dose Route Start Last Admin Trade Name Laura PRN Reason Stop Dose Admin Acetaminophen 975 mg 12/17/24 18:03 12/17/24 18:07 Acetaminophen 325 Mg Tablet PO 12/17/24 18:04 975 mg ONCE ONE Administration Vancomycin HCl 1,500 mg/ 500 mls @ 333.333 mls/hr 12/17/24 18:40 12/17/24 20:09 Sodium Chloride IV 12/17/24 20:09 333.33 mls/hr ONCE ONE Administration Piperacillin Sod/Tazobactam 50 mls @ 100 mls/hr 12/17/24 18:40 12/17/24 20:15 Sod 3.375 gm/ Sodium Chloride IV 12/17/24 19:09 Infused ONCE ONE Infusion Lorazepam 1 mg 12/17/24 18:40 12/17/24 19:16 Lorazepam 1 Mg Tablet PO 12/17/24 18:41 1 mg ONCE ONE Administration Nicotine 21 mg 12/17/24 18:40 12/17/24 19:16 Nicotine 21 Mg Patch.Td24 TRANSDERMA 12/17/24 18:41 21 mg ONCE ONE Administration Medical Decision Making Medical Decision Making MDM Narrative: 49-year-old female with a history of morbid obesity, diabetes, onychomycosis, tobacco abuse, arthritis, hypothyroidism, hyperlipidemia and hypertension who presents with left foot infection for weeks. Patient is not sure when she developed an ulceration over her 4th digit. She developed a foul smell, which prompted her assessment at urgent Care. Patient was advised to come to the emergency department for further assessment. Denies fever. Problem: Obesity, diabetes, fungal infection History: Per patient I have considered the following differential diagnoses: Cellulitis, purulent cellulitis, osteomyelitis gangrene Plan: Labs and imaging already obtained, the patient has a osteomyelitis. We will be starting vanco and Zosyn, she will require admission. I have independently reviewed the following tests: Labs: No leukocytosis, not anemic, no electrolyte abnormality, CRP 1.31,, ESR 31, lactic 1.3 X-ray left foot: XR/XR foot LT min 3V IMPRESSION: Soft tissue swelling and suspected soft tissue gas in the lateral fourth digit raises question of overlying skin ulceration or penetrating trauma. Subtle periosteal new bone formation along the lateral metaphysis of the proximal phalanx raises question of osteitis or osteomyelitis. Achilles tendon ossification. This can be related to repetitive microtrauma or remote macrotrauma. Lab Data 12/17/24 16:13 12/17/24 16:13 Labs: Lab Results 12/17/24 Range/Units 16:13 WBC 9.1 (4.8-10.8) X10*3/uL RBC 4.86 (4.20-5.50) X10*6/uL Hgb 14.9 (12.0-16.0) g/dl Hct 43.2 (37.0-47.0) % MCV 88.9 (80.0-98.0) fL MCH 30.7 (27.0-33.0) pg MCHC 34.5 (31.0-35.0) g/dl RDW 13.1 (11.0-16.0) % Plt Count 187 (160-400) X10*3/uL MPV 12.0 (9.4-12.3) fL Immature Gran % (Auto) 0.4 (0.0-0.4) % Neut % (Auto) 55.5 (45-73) % Lymph % (Auto) 27.8 (20-40) % [place] % (Auto) 7.0 (2-11) % Eos % (Auto) 8.2 H (0-4) % Baso % (Auto) 1.1 (0-2) % Lymph # (Auto) 2.5 (1.2-4.9) X10*3/uL [place] # (Auto) 0.6 (0.1-1.2) X10*3/uL Eos # (Auto) 0.8 H (0.0-0.4) X10*3/uL Baso # (Auto) 0.1 (0.0-0.2) X10*3/uL Abs Immat Gran (auto) 0.04 H (0.00-0.03) X10*3/uL Absolute Neuts (auto) 5.1 (2.0-8.3) x10*3/uL Absolute Nucleated RBC 0.000 (0.0-0.012) X10*3/uL Nucleated RBC % (auto) 0.0 (0.0-0.2) /100WBC ESR 31 H (0-20) MM/HR Sodium 139 (135-145) mmol/L Potassium 4.0 (3.3-5.1) mmol/L Chloride 105 (96-108) mmol/L Carbon Dioxide 26 (22-29) mmol/L Anion Gap 12 (12-20) BUN 15 (9-16) mg/dL Creatinine 0.69 (0.5-1.4) mg/dL Estim Creat Clear Calc 142.1 Estimated GFR > 60 Random Glucose 201 H (60-115) mg/dL Lactic Acid 1.3 (0.5-2.0) mmol/L Calcium 9.9 (8.4-10.2) mg/dL Total Bilirubin 0.4 (0.0-1.0) mg/dL AST 26 (5-31) U/L ALT 24 (0-31) U/L Alkaline Phosphatase 104 (39-117) U/L C-Reactive Protein 1.31 H (< or = 0.50) mg/dL Total Protein 7.2 (6.5-8.0) g/dL Albumin 4.0 (3.5-5.0) g/dL Lipase 34 (8-78) U/L Discharge Plan Discharge Clinical Impression: Osteomyelitis of fourth toe of left foot Patient Disposition: Admitted As Inpatient Print Language: Polish
[2024-12-17 16:21] LABS: MANUAL DIFF FLAG NO
[2024-12-17 16:26] LABS: Basophils Absolute Auto 0.1 X10*3/uL (0.0-0.2); Basophils Percent Auto 1.1 % (0-2); Eosinophils Absolute Auto 0.8 X10*3/uL (0.0-0.4); Eosinophils Percent Auto 8.2 % (0-4); Hematocrit 43.2 % (37.0-47.0); Hemoglobin 14.9 g/dl (12.0-16.0); Imm Gran Abs Auto 0.04 X10*3/uL (0.00-0.03); Imm Gran Pct Auto 0.4 % (0.0-0.4); Lymphocytes Absolute Auto 2.5 X10*3/uL (1.2-4.9); Lymphocytes Percent Auto 27.8 % (20-40); Mean Corpuscular HGB Conc 34.5 g/dl (31.0-35.0); Mean Corpuscular Hemoglobin 30.7 pg (27.0-33.0); Mean Corpuscular Volume 88.9 fL (80.0-98.0); Monocytes Absolute Auto 0.6 X10*3/uL (0.1-1.2); Neutrophils Absolute Auto 5.1 x10*3/uL (2.0-8.3); Neutrophils Percent Auto 55.5 % (45-73); Platelet Count 187 X10*3/uL (160-400); Red Blood Count 4.86 X10*6/uL (4.20-5.50); Red Cell Distribution Width 13.1 % (11.0-16.0); White Blood Count 9.1 X10*3/uL (4.8-10.8)
[2024-12-17 16:37] LABS: Alanine Aminotransferase 24 U/L (0-31); Alkaline Phosphatase 104 U/L (39-117); Anion Gap 12 (12-20); Aspartate Amino Transferase 26 U/L (5-31); Bilirubin Total 0.4 mg/dL (0.0-1.0); Blood Urea Nitrogen 15 mg/dL (9-16); C Reactive Protein 1.31 mg/dL (< or = 0.50); Calcium 9.9 mg/dL (8.4-10.2); Carbon Dioxide 26 mmol/L (22-29); Chloride 105 mmol/L (96-108); Creatinine Clr Calc Pharmacy 142.1; Estimated Glomerular Filt Rate > 60; Glucose Random 201 mg/dL (60-115); Lipase 34 U/L (8-78); Sodium 139 mmol/L (135-145); Total Protein 7.2 g/dL (6.5-8.0)
[2024-12-17 16:38] LABS: Lactic Acid 1.3 mmol/L (0.5-2.0)
[2024-12-17 17:05] LABS: Erythrocyte Sedimentation Rate 31 MM/HR (0-20)
[2024-12-17 17:55] VITALS: BP 165/84; PULSE 89; RESP 15; TEMP 36.6; O2SAT 97
[2024-12-17] MEDS: Acetaminophen 325 MG TABLET 975 MG PO (18:07)
--- NOTE | 2024-12-17 18:36 | PC.NURSE ---
This RN spent a lot of time at the patients bedside going over current situation. Pt reporting she has been nonmed compliant, she has not been taking care of herself and has a lot of social situations happening at home which have also been playing into her not taking care of herself. Pt reporting she has had a wound on her left small toe for an unknown amount of time that she thought was just an ingrown nail. Pt is a diabetic and has not been taking her medications, her sons have been attempting basic wound care at home, son at bedside denies any puss or streaking noted to the area. Pt denies any fevers at home, but did report that she has been having a harder time ambulating, the clinic today gave her a surgical boot to wear and sent her home with PO antibiotics however they called her and told her to come to the ED d/t concerns of osteo in that toe. This RN and pt went over risks and benefits of all situations. Provider made aware of situation and is currently at bedside with patient.
[2024-12-17 19:03] VITALS: BP 123/69; PULSE 80; RESP 18; TEMP 36.8; O2SAT 92
[2024-12-17] MEDS: LORazepam 1 MG TABLET PO (19:16)
[2024-12-17] MEDS: Nicotine 21 MG PATCH.TD24 TRANSDERMA (19:16)
[2024-12-17] MEDS: Piperacillin Sodium/Tazobactam 3.375 GM in 0.9 % Sodium Chloride 50 ML IV (19:16)
[2024-12-17 20:00] VITALS: BP 119/67; PULSE 77; RESP 16; TEMP 36.8; O2SAT 94
[2024-12-17] MEDS: vancomycin HCL 1,500 MG in 0.9 % Sodium Chloride 500 ML 333.33 MG IV (20:09)
--- NOTE | 2024-12-17 20:52 | PHA.MEDREC ---
Addendum entered by Juan Manuel Chino [facility] 12/17/24 20:59: med rec reviewed Original Note: Pharmacy Consult ? Medication Reconciliation Pharmacy has completed the medication reconciliation. Spoke to patient son at bedside to confirm med list. Son states patient hasn't been taking her medications like she should be. son states patient should be taking Metormin 500 mg, last fill date was 05/07/24 for 90 days and Levothyroxine 200 mg, last fill date 03/21/24 for 90 days. Will let provider know.
--- NOTE | 2024-12-17 21:09 | PC.NURSE ---
Patient is sleeping comfortably, with call eubanks in reach, side rail up for safety. IV running vanco with no s/s of infiltrate, working well. Respirations even. Lights lowered.
[2024-12-17 22:06] VITALS: BP 96/48; PULSE 68; RESP 18; TEMP 36.6; O2SAT 95
--- NOTE | 2024-12-17 22:07 | P.HPHOSP_ITS ---
History of Present Illness Date of Service: 12/17/24 Attending physician on admission: Stanley Bender Chief Complaint: Left foot ulcer Pam Navarrete is a 49 years old woman with past medical history significant for obesity, type 2 diabetes mellitus, obstructive sleep apnea noncompliant with CPAP, morbid obesity, hypothyroidism, hyperlipidemia and hypertension presents to the ED for left 4th toe ulcer. HPI was provided by patient's son who was at bedside as the patient was sleeping. She was given Ativan 1 mg PO. According to his son the patient has been complaining of pain in the left foot when walking and also was noted about 2 weeks ago. In the ED she was found to have stable vital signs. CBC CMP are normal. Glucose is 201. There is no lactic acidosis. Left foot x-ray showed soft tissue swelling and suspected soft tissue gas in the lateral 4 digits raises question of overlying skin ulceration penetrating trauma. It does resolve sort of periosteal new bone formation along the lateral metaphysis of the proximal phalanx raising question of osteomyelitis. ED tx: Acetaminophen 975 mg p.o., vancomycin 1.5 mg IV, Zosyn 3.375 g IV, Ativan 1 mg p.o., nicotine patch 21 mcg Review of Systems 2 Review of Systems: Unobtainable, sleeping Ativan give by ED. [facility] Medical History Former cigarette smoker Left anterior knee pain Diabetic neuropathy Ulcer of lower extremity due to diabetes Morbid obesity Diabetes mellitus with hyperglycemia, with long-term current use of insulin Anxiety and depression Toenail fungus Cigarette smoker motivated to quit Depression Type 2 diabetes mellitus with hyperglycemia, without long-term current use of insulin Multinodular thyroid Vitamin D deficiency Hypothyroidism HLD (hyperlipidemia) HTN (hypertension) T2DM (type 2 diabetes mellitus) Family History Father Emphysema lung Substance use disorder Mother Atrial fibrillation Surgical History Umbilical hernia, incarcerated Pyloric stenosis Hx of cholecystectomy History of tooth extraction Social History Housing: House Alcohol intake: never Patient Tobacco Use Status: Current everyday Tobacco user Tobacco use type: Cigarette Cigarette Packs Per Day: 1 Cigarettes Per Day: 20 Years Smoked: 9 Smoked in Last 30 Days: Yes e-Cigarette/Vaping Use: Never Used Advance Directives: No Advance Directives Information Provided: No Do you have a plan to hurt others: No Plan Nutrition Risks: No Nutritional Risk service: No Current occupational status: employed Cognitive needs: No Hearing needs: No Vision needs: Yes Meds Allergies Allergy/AdvReac Type Severity Reaction Status Date / Time doxycycline AdvReac GI upset Verified 12/17/24 15:41 Active Medications: Current Medications Acetaminophen (Acetaminophen 325 Mg Tablet) 650 mg PO Q6H PRN PRN Reason: Pain, Mild 1-3,fever,headache Calcium Carbonate (Calcium Carbonate 750 Mg Tab.Chew) 750 mg PO Q4H PRN PRN Reason: Heartburn Dextrose (Dextrose 50 % 25 Gm/50 Ml Syringe) 25 gm IVPUSH Q15M PRN; Protocol PRN Reason: per Hypoglycemia Standing Ord. Enoxaparin Sodium (Enoxaparin Sodium 40 Mg/0.4 Ml Syringe) 40 mg SUBCUT Q24H JOHN Glucose (Glucose Gel 15 Gm Gel..Gram.) 15 gm PO Q15M PRN; Protocol PRN Reason: per Hypoglycemia Standing Ord. Insulin Human Lispro (Insulin Lispro 100 Unit/Ml 3 Ml Vial) 0 unit SUBCUT QIDACHS JOHN; Protocol Magnesium Hydroxide (Milk Of Magnesia 30 Ml Oral.Susp) 30 ml PO DAILY PRN PRN Reason: Constipation Melatonin (Melatonin 3 Mg Tablet) 6 mg PO BEDTIME PRN PRN Reason: Insomnia Nicotine Polacrilex (Nicotine Polacrilex 2 Mg Gum) 2 mg BUCCAL Q1H PRN PRN Reason: Nicotine Cravings Sodium Chloride (0.9 % Sodium Chloride Flush 3 Ml Syringe) 3 ml IVFLUSH QSHIFT [facility] Physical Exam 2 Vital Signs and Narrative: Vital Signs: Last Vital Signs Temp 98.2 F 12/17/24 20:00 Pulse 77 12/17/24 20:00 Resp 16 12/17/24 20:00 BP 119/67 12/17/24 20:00 Pulse Ox 94 12/17/24 20:00 O2 Del Method Room Air 12/17/24 20:00 BMI result Body Mass Index 40.5 Const: Other: Constitutional - Sleeping. No distress. Extremities - left foot: 4th toe: ulcer noted over lateral aspect. Very foul smelling and purulent discharge. See pictures ED note. Unable to perform the rest of the exam. Patient seems to prefer sleeping. Results Labs 12/17/24 16:13 12/17/24 16:13 Labs: Laboratory Results - last 24 hr 12/17/24 16:13 MCV 88.9 MCH 30.7 MCHC 34.5 RDW 13.1 Plt Count 187 MPV 12.0 Immature Gran % (Auto) 0.4 Neut % (Auto) 55.5 Lymph % (Auto) 27.8 [place] % (Auto) 7.0 Eos % (Auto) 8.2 H Baso % (Auto) 1.1 Lymph # (Auto) 2.5 [place] # (Auto) 0.6 Eos # (Auto) 0.8 H Baso # (Auto) 0.1 Abs Immat Gran (auto) 0.04 H Absolute Neuts (auto) 5.1 Absolute Nucleated RBC 0.000 Nucleated RBC % (auto) 0.0 ESR 31 H Anion Gap 12 Estim Creat Clear Calc 142.1 Estimated GFR > 60 Random Glucose 201 H Lactic Acid 1.3 Calcium 9.9 Total Bilirubin 0.4 AST 26 ALT 24 Alkaline Phosphatase 104 C-Reactive Protein 1.31 H Total Protein 7.2 Albumin 4.0 Lipase 34 Assessment and Plan (1) Diabetic ulcer of toe: Qualifiers: Diabetes mellitus type: type 2 Laterality: left Non-pressure ulcer stage: unspecified non-pressure ulcer stage Qualified Code(s): E11.621 - Type 2 diabetes mellitus with foot ulcer; L97.529 - Non-pressure chronic ulcer of other part of left foot with unspecified severity Status: Acute (2) Morbid obesity: Status: Acute (3) Hypothyroidism: Qualifiers: Hypothyroidism type: unspecified Qualified Code(s): E03.9 - Hypothyroidism, unspecified Status: Acute (4) Type 2 diabetes mellitus with hyperglycemia: Qualifiers: Diabetes mellitus lobsterman insulin use: unspecified lobsterman insulin use status Qualified Code(s): E11.65 - Type 2 diabetes mellitus with hyperglycemia Status: Acute Plan Pam Navarrete is a 49 y/o admitted with: * Left 4th toe infected diabetic ulcer with possible associated osteomyelitis. Admit to hospitalist service. Continue empiric IV antibiotic therapy with Zosyn and vancomycin. Surgery consult. Left foot MRI to assess for abscess and/or osteomyelitis. * Type 2 diabetes mellitus. BG checks before meals at bedtime. Insulin sliding scale. Metformin on hold. Diabetic diet. Check Hgb A1c. * Hypothyroidism. Continue levothyroxine. Check TSH. * TAWANDA, noncompliant with CPAP. * Morbid obesity. BMI 40.5 kg/m2. Weight loss. * Hyperlipidemia. ?taking meds for this. Check lipid panel. * Hypertension. ?taking meds for this. Continue to monitor for now. Code status: Full. DVT prophylaxis: Lovenox. Patient will need hospitalization for at least 2 midnights for left 4th toe infected diabetic ulcer with possible associated osteomyelitis treatment with IV antibiotic therapy. She will also need further evaluation with MRI of the left foot to rule out osteomyelitis. Quality Stroke Does the patient have a stroke diagnosis?: No VTE Prior VTE?: No VTE Risk Level:: Medical - moderate - high VTE Device Contraindication: Treatment Not Indicated VTE Drug Contraindication: N/A - Med Ordered
[2024-12-17 22:20] VITALS: BP 138/83
[2024-12-17 22:53] LABS: Glucose, Whole Blood 198 mg/dL (60-115)
[2024-12-17] MEDS: Insulin Lispro 100 UNIT/ML 3 ML VIAL SUBCUT (22:53)
[2024-12-17 23:17] LABS: Thyroid Stimulating Hormone 18.45 uIU/mL (0.32-4.0)
[2024-12-18] MEDS: Piperacillin Sodium/Tazobactam 4.5 GM in 0.9 % Sodium Chloride 100 ML IV ×4 (00:57→18:39)
[2024-12-18] MEDS: 0.9 % Sodium Chloride Flush 3 ML SYRINGE IVFLUSH ×3 (01:00→19:46)
--- NOTE | 2024-12-18 04:20 | PC.NURSE ---
Patient resting comfortably, denies pain at present time. Safety measures in place , bed alarm senior mobile solutions architect eubanks within reach.
[2024-12-18 05:26] LABS: MANUAL DIFF FLAG NO
[2024-12-18 05:27] LABS: Basophils Absolute Auto 0.1 X10*3/uL (0.0-0.2); Basophils Percent Auto 1.1 % (0-2); Eosinophils Absolute Auto 0.8 X10*3/uL (0.0-0.4); Eosinophils Percent Auto 10.3 % (0-4); Hematocrit 42.4 % (37.0-47.0); Hemoglobin 14.2 g/dl (12.0-16.0); Imm Gran Abs Auto 0.03 X10*3/uL (0.00-0.03); Imm Gran Pct Auto 0.4 % (0.0-0.4); Lymphocytes Absolute Auto 1.8 X10*3/uL (1.2-4.9); Lymphocytes Percent Auto 24.4 % (20-40); Mean Corpuscular HGB Conc 33.5 g/dl (31.0-35.0); Mean Corpuscular Hemoglobin 30.3 pg (27.0-33.0); Mean Corpuscular Volume 90.4 fL (80.0-98.0); Mean Platelet Volume 11.7 fL (9.4-12.3); Monocytes Absolute Auto 0.6 X10*3/uL (0.1-1.2); Monocytes Percent Auto 7.5 % (2-11); Neutrophils Absolute Auto 4.1 x10*3/uL (2.0-8.3); Neutrophils Percent Auto 56.3 % (45-73); Platelet Count 142 X10*3/uL (160-400); Red Blood Count 4.69 X10*6/uL (4.20-5.50); Red Cell Distribution Width 13.2 % (11.0-16.0); White Blood Count 7.3 X10*3/uL (4.8-10.8)
[2024-12-18 05:44] LABS: Cholesterol 209 mg/dL (<200); HDL Cholesterol 31 mg/dL (>40); LDL Cholesterol Calculated 128 mg/dL (<100); Triglycerides 253 mg/dL (<150)
[2024-12-18 05:47] LABS: Anion Gap 13 (12-20); Blood Urea Nitrogen 13 mg/dL (9-16); Calcium 9.1 mg/dL (8.4-10.2); Carbon Dioxide 26 mmol/L (22-29); Chloride 106 mmol/L (96-108); Estimated Glomerular Filt Rate > 60; Glucose Random 195 mg/dL (60-115); Potassium 4.2 mmol/L (3.3-5.1); Sodium 141 mmol/L (135-145)
[2024-12-18] MEDS: Levothyroxine Sodium 200 MCG TABLET PO (06:01)
[2024-12-18 06:24] VITALS: BP 138/60; PULSE 67; RESP 20; TEMP 36.5; O2SAT 94
[2024-12-18 07:18] LABS: Estimated Average Glucose 237 mg/dL; Hemoglobin A1c % 9.9 % (<6.0)
[2024-12-18 07:41] LABS: Reflex LDLD? No
[2024-12-18 07:50] LABS: Glucose, Whole Blood 193 mg/dL (60-115)
[2024-12-18] MEDS: Insulin Lispro 100 UNIT/ML 3 ML VIAL SUBCUT ×4 (08:21→20:42)
[2024-12-18] MEDS: Enoxaparin Sodium 40 MG/0.4 ML SYRINGE SUBCUT (08:22)
[2024-12-18] MEDS: vancomycin HCL 1,500 MG in 0.9 % Sodium Chloride 500 ML 333.33 MG IV (09:16)
--- NOTE | 2024-12-18 10:22 | P.PNIM_ITS ---
Subjective Subjective Date of Service: 12/19/24 Interval History: Seen and evaluated this morning Hb 9.7 no fever or chills ESR of 30s no other events Review of Systems Review of Systems: Yes all other systems are reviewed and are negative Physical Exam 2 Vital Signs: Vital Signs: Last Vital Signs Temp 97.7 F 12/18/24 06:24 Pulse 67 12/18/24 06:24 Resp 20 12/18/24 06:24 BP 138/60 12/18/24 06:24 Pulse Ox 94 12/18/24 06:24 O2 Del Method Room Air 12/18/24 06:24 BMI result Body Mass Index 40.5 Const: Other: Constitutional : Awake, interactive, not in distress Neck : Normal inspection, Supple Cardiovascular : RRR, no JVP, no lower extremity edema Respiratory : good bilateral air entry, no crackles, wheezes or rhonchi Gastrointestinal: soft, lax, Normal bowel sounds, Non tender Skin : Warm, Dry, left foot 4th toe ulcer noted over lateral aspect. foul smelling and purulent discharge. Neurological : Alert & oriented x3, No focal deficit Objective Data Active Medications Acetaminophen (Acetaminophen 325 Mg Tablet) 650 mg PO Q6H PRN PRN Reason: Pain, Mild 1-3,fever,headache Calcium Carbonate (Calcium Carbonate 750 Mg Tab.Chew) 750 mg PO Q4H PRN PRN Reason: Heartburn Dextrose (Dextrose 50 % 25 Gm/50 Ml Syringe) 25 gm IVPUSH Q15M PRN; Protocol PRN Reason: per Hypoglycemia Standing Ord. Enoxaparin Sodium (Enoxaparin Sodium 40 Mg/0.4 Ml Syringe) 40 mg SUBCUT Q24H [facility] Last Admin: 12/18/24 08:22 Dose: 40 mg Documented By: LEATHA Glucose (Glucose Gel 15 Gm Gel..Gram.) 15 gm PO Q15M PRN; Protocol PRN Reason: per Hypoglycemia Standing Ord. Piperacillin Sod/Tazobactam (Sod 4.5 gm/ Sodium Chloride) 100 mls @ 200 mls/hr IV Q6H [facility] Last Infusion: 12/18/24 08:47 Dose: Infused Documented By: LEATHA Vancomycin HCl 1,500 mg/ (Sodium Chloride) 500 mls @ 333.333 mls/hr IV Q12H [facility] Last Admin: 12/18/24 09:16 Dose: 333.33 mls/hr Documented By: LEATHA Insulin Human Lispro (Insulin Lispro 100 Unit/Ml 3 Ml Vial) 0 unit SUBCUT QIDACHS [facility]; Protocol Last Admin: 12/18/24 08:21 Dose: 2 unit Documented By: LEATHA Levothyroxine Sodium (Levothyroxine Sodium 200 Mcg Tablet) 200 mcg PO DAILY@0600 [facility] Last Admin: 12/18/24 06:01 Dose: 200 mcg Documented By: VERENICE Magnesium Hydroxide (Milk Of Magnesia 30 Ml Oral.Susp) 30 ml PO DAILY PRN PRN Reason: Constipation Melatonin (Melatonin 3 Mg Tablet) 6 mg PO BEDTIME PRN PRN Reason: Insomnia Nicotine Polacrilex (Nicotine Polacrilex 2 Mg Gum) 2 mg BUCCAL Q1H PRN PRN Reason: Nicotine Cravings Pharmacy Consult (Consult Rx Vancomycin Dosing) 1 each MISCELLANE DAILY PRN PRN Reason: Consult order Sodium Chloride (0.9 % Sodium Chloride Flush 3 Ml Syringe) 3 ml IVFLUSH [facility] Last Admin: 12/18/24 08:23 Dose: Not Given Documented By: LEATHA Non-Admin Reason: IV Running Labs 12/19/24 05:29 12/19/24 05:29 Labs: Laboratory Results - last 24 hr 12/17/24 12/17/24 12/18/24 16:13 22:49 05:04 MCV 88.9 90.4 MCH 30.7 30.3 MCHC 34.5 33.5 RDW 13.1 13.2 Plt Count 187 142 L MPV 12.0 11.7 Immature Gran % (Auto) 0.4 0.4 Neut % (Auto) 55.5 56.3 Lymph % (Auto) 27.8 24.4 [place] % (Auto) 7.0 7.5 Eos % (Auto) 8.2 H 10.3 H Baso % (Auto) 1.1 1.1 Lymph # (Auto) 2.5 1.8 [place] # (Auto) 0.6 0.6 Eos # (Auto) 0.8 H 0.8 H Baso # (Auto) 0.1 0.1 Abs Immat Gran (auto) 0.04 H 0.03 Absolute Neuts (auto) 5.1 4.1 Absolute Nucleated RBC 0.000 0.000 Nucleated RBC % (auto) 0.0 0.0 ESR 31 H Anion Gap 12 13 Estim Creat Clear Calc 142.1 129.0 Estimated GFR > 60 > 60 POC Glucose 198 H Random Glucose 201 H 195 H Estimat Average Glucose 237 Hemoglobin A1c % 9.9 H Lactic Acid 1.3 Calcium 9.9 9.1 D Total Bilirubin 0.4 AST 26 ALT 24 Alkaline Phosphatase 104 C-Reactive Protein 1.31 H Total Protein 7.2 Albumin 4.0 Triglycerides 253 H Cholesterol 209 H LDL Cholesterol, Calc 128 H HDL Cholesterol 31 L Lipase 34 TSH 18.45 H Free T4 0.70 L 12/18/24 07:46 MCV MCH MCHC RDW Plt Count MPV Immature Gran % (Auto) Neut % (Auto) Lymph % (Auto) [place] % (Auto) Eos % (Auto) Baso % (Auto) Lymph # (Auto) [place] # (Auto) Eos # (Auto) Baso # (Auto) Abs Immat Gran (auto) Absolute Neuts (auto) Absolute Nucleated RBC Nucleated RBC % (auto) ESR Anion Gap Estim Creat Clear Calc Estimated GFR POC Glucose 193 H Random Glucose Estimat Average Glucose Hemoglobin A1c % Lactic Acid Calcium Total Bilirubin AST ALT Alkaline Phosphatase C-Reactive Protein Total Protein Albumin Triglycerides Cholesterol LDL Cholesterol, Calc HDL Cholesterol Lipase TSH Free T4 Assessment and Plan (1) Diabetic ulcer of toe: Status: Acute (2) Osteomyelitis of fourth toe of left foot: Status: Acute (3) Onychomycosis: Status: Acute Plan Pam Navarrete is a 49 y/o admitted with: Left 4th toe infected diabetic ulcer XR of foot suggesting possible associated osteomyelitis. ESR in 30s IV Zosyn and vancomycin Surgery consult pending cultures Left foot MRI pending for abscess and/or osteomyelitis. will need podiatry services for onchomycosis on discharge Type 2 diabetes mellitus with hyperglycemia Insulin sliding scale. Metformin on hold. Diabetic diet. Hgb A1c 9.9 Hypothyroidism Continue levothyroxine. Check TSH. TAWANDA, noncompliant with CPAP Morbid obesity. BMI 40.5 kg/m2. Weight loss. Hyperlipidemia. elevated lipid panel. start Statin Hypertension. Continue to monitor for now Code status: Full. DVT prophylaxis: Lovenox. Patient will need hospitalization overnight for left 4th toe infected diabetic ulcer with possible associated osteomyelitis treatment with IV antibiotic therapy. She will also need further evaluation with MRI of the left foot to rule out osteomyelitis. Quality Stroke Does the patient have a stroke diagnosis?: No VTE Prior VTE?: No VTE Risk Level:: Medical - moderate - high VTE Device Contraindication: Treatment Not Indicated VTE Drug Contraindication: N/A - Med Ordered
[2024-12-18 10:36] VITALS: BMI 40.5
--- NOTE | 2024-12-18 11:13 | MHC.CM.PN ---
PT SLEEPING, CM MET WITH SON, ELKE, AT BEDSIDE HE REPORTS THE PT LIVES AT HOME WITH HIMSELF AND HIS TWO BROTHERS PT IS INDEPENDENT WITH CARE, SHE HAS A CPAP, BUT DOES NOT USE IT HCP ON FILE IS HER BROTHER, TEREZA GARCIA PCP: CHRIS GARCIA TBD: HOME ? SERVICES VIA PRIVATE TRANSPORT
[2024-12-18 11:21] LABS: Glucose, Whole Blood 176 mg/dL (60-115)
[2024-12-18 11:22] VITALS: BP 151/82; PULSE 67; RESP 16; TEMP 36.4; O2SAT 93
--- NOTE | 2024-12-18 13:29 | PM.CNGS ---
History of Present Illness Consult details Consult date: 12/18/24 Requesting physician: Jesús Dave Narrative: 49-year-old female patient presenting with complaints of pain, redness and discharge from the left foot. She reports that she is having difficulty with the nail of the 5th toe pushing into the 4th toe causing ulceration. She purchased diabetic shoes to help prevent this from happening however when in work was wearing sneakers which seemed to increase the injury of the 4th toe. Over the past several weeks there has been increased redness, swelling and discharge from the 4th toe. She reports seeing a college intern and [employer] several years ago, but was told she may have to pay rodriguez for visits therefore stopped seeing them. She has a history of diabetes and does report pain in the foot when walking. She is uncertain if she has ever undergone vascular studies in the past. Review of Systems Review of Systems: Yes all other systems are reviewed and are negative COUNTS INCLUDE 234 BEDS AT THE [facility] Past Medical History Medical History Former cigarette smoker Left anterior knee pain Diabetic neuropathy Ulcer of lower extremity due to diabetes Morbid obesity Diabetes mellitus with hyperglycemia, with long-term current use of insulin Anxiety and depression Toenail fungus Cigarette smoker motivated to quit Depression Type 2 diabetes mellitus with hyperglycemia, without long-term current use of insulin Multinodular thyroid Vitamin D deficiency Hypothyroidism HLD (hyperlipidemia) HTN (hypertension) T2DM (type 2 diabetes mellitus) Family History Family History Father Emphysema lung Substance use disorder Mother Atrial fibrillation Surgical History Surgical History Umbilical hernia, incarcerated Pyloric stenosis Hx of cholecystectomy History of tooth extraction Social History Social History Household Members: Children Household Members Other:: 3 children Housing: House Do you presently have visiting nurse or other home services: No Alcohol intake: never Patient Tobacco Use Status: Current everyday Tobacco user Tobacco use type: Cigarette Cigarette Packs Per Day: 0.25 Cigarettes Per Day: 20 Years Smoked: 9 Smoked in Last 30 Days: Yes e-Cigarette/Vaping Use: Never Used Have you been hit, kicked, punched, or otherwise hurt by someone within the past year? If so, by whom?: No Do you feel safe in your current relationship?: No Is there a partner from a previous relationship who is making you feel unsafe now?: No Are you made to feel afraid or neglected: No Advance Directives: Yes Advance Directives Information Provided: Yes Advance Directives on File: No Advance Directives Date on File: 12/18/24 Do you have a plan to hurt others: No Plan Recently lost weight without trying: No Eating poorly because of decreased appetite: No Nutrition Risks: Diabetes new onset/Uncontrolled Patient : No : No Poor oral hygiene: No service: No Current occupational status: employed Cognitive needs: No Hearing needs: No Vision needs: Yes Meds Allergies Allergy/AdvReac Type Severity Reaction Status Date / Time doxycycline AdvReac GI upset Verified 12/17/24 15:41 Active Medications: Current Medications Acetaminophen (Acetaminophen 325 Mg Tablet) 650 mg PO Q6H PRN PRN Reason: Pain, Mild 1-3,fever,headache Calcium Carbonate (Calcium Carbonate 750 Mg Tab.Chew) 750 mg PO Q4H PRN PRN Reason: Heartburn Dextrose (Dextrose 50 % 25 Gm/50 Ml Syringe) 25 gm IVPUSH Q15M PRN; Protocol PRN Reason: per Hypoglycemia Standing Ord. Enoxaparin Sodium (Enoxaparin Sodium 40 Mg/0.4 Ml Syringe) 40 mg SUBCUT Q24H [facility] Last Admin: 12/18/24 08:22 Dose: 40 mg Glucose (Glucose Gel 15 Gm Gel..Gram.) 15 gm PO Q15M PRN; Protocol PRN Reason: per Hypoglycemia Standing Ord. Piperacillin Sod/Tazobactam (Sod 4.5 gm/ Sodium Chloride) 100 mls @ 200 mls/hr IV Q6H [facility] Last Admin: 12/18/24 12:41 Dose: 200 mls/hr Vancomycin HCl 1,500 mg/ (Sodium Chloride) 500 mls @ 333.333 mls/hr IV Q12H [facility] Last Infusion: 12/18/24 10:51 Dose: Infused Insulin Human Lispro (Insulin Lispro 100 Unit/Ml 3 Ml Vial) 0 unit SUBCUT QIDACHS [facility]; Protocol Last Admin: 12/18/24 11:59 Dose: 2 unit Levothyroxine Sodium (Levothyroxine Sodium 200 Mcg Tablet) 200 mcg PO DAILY@0600 [facility] Last Admin: 12/18/24 06:01 Dose: 200 mcg Magnesium Hydroxide (Milk Of Magnesia 30 Ml Oral.Susp) 30 ml PO DAILY PRN PRN Reason: Constipation Melatonin (Melatonin 3 Mg Tablet) 6 mg PO BEDTIME PRN PRN Reason: Insomnia Nicotine Polacrilex (Nicotine Polacrilex 2 Mg Gum) 2 mg BUCCAL Q1H PRN PRN Reason: Nicotine Cravings Pharmacy Consult (Consult Rx Vancomycin Dosing) 1 each MISCELLANE DAILY PRN PRN Reason: Consult order Sodium Chloride (0.9 % Sodium Chloride Flush 3 Ml Syringe) [facility] Admin: 12/18/24 08:23 Dose: Not Given Physical Exam Vital Signs: Vital Signs: Last Vital Signs Temp 97.5 F 12/18/24 11:22 Pulse 67 12/18/24 11:22 Resp 16 12/18/24 11:22 BP 151/82 H 12/18/24 11:22 Pulse Ox 93 12/18/24 11:22 O2 Del Method Room Air 12/18/24 11:22 BMI result Body Mass Index 40.5 Const: General: no acute distress Nutritional Appearance: obese Orientation/consciousness: patient oriented x3 Limitations: no limitations HEENT: Head: Yes normocephalic and Yes atraumatic Neck: Neck: Yes trachea midline Resp: Effort & Inspection: normal respiratory effort, no audible wheezes, no cough and no respiratory distress Skin: Other: Warm, dry, no rash Neuro: General: patient oriented x3 Extrem: Other: Left foot with thick hyperkeratotic nails on both feet. Skin is dry and flaky. Webspace between the 5th and 4th toe is erythematous but non fluctuant. Ulceration noted at the lateral surface of the left 4th toe where it impacts the nail tip of the 5th toe. No other ulceration or necrotic skin identified. Gauze placed between each of the 5 digits as a spacer in the foot covered with a webbed tube. General: Yes full ROM Results Labs 12/18/24 05:04 12/18/24 05:04 Labs: Abnormal lab results 12/17/24 12/17/24 12/18/24 Range/Units 16:13 22:49 05:04 Plt Count 142 L (160-400) X10*3/uL Eos % (Auto) 8.2 H 10.3 H (0-4) % Eos # (Auto) 0.8 H 0.8 H (0.0-0.4) X10*3/uL Abs Immat Gran (auto) 0.04 H (0.00-0.03) X10*3/uL ESR 31 H (0-20) MM/HR POC Glucose 198 H (60-115) mg/dL Random Glucose 201 H 195 H (60-115) mg/dL Hemoglobin A1c % 9.9 H (<6.0) % C-Reactive Protein 1.31 H (< or = 0.50) mg/dL Triglycerides 253 H (<150) mg/dL Cholesterol 209 H (<200) mg/dL LDL Cholesterol, Calc 128 H (<100) mg/dL HDL Cholesterol 31 L (>40) mg/dL TSH 18.45 H (0.32-4.0) uIU/mL Free T4 0.70 L (0.71-1.85) ng/dL 12/18/24 12/18/24 Range/Units 07:46 11:05 Plt Count (160-400) X10*3/uL Eos % (Auto) (0-4) % Eos # (Auto) (0.0-0.4) X10*3/uL Abs Immat Gran (auto) (0.00-0.03) X10*3/uL ESR (0-20) MM/HR POC Glucose 193 H 176 H (60-115) mg/dL Random Glucose (60-115) mg/dL Hemoglobin A1c % (<6.0) % C-Reactive Protein (< or = 0.50) mg/dL Triglycerides (<150) mg/dL Cholesterol (<200) mg/dL LDL Cholesterol, Calc (<100) mg/dL HDL Cholesterol (>40) mg/dL TSH (0.32-4.0) uIU/mL Free T4 (0.71-1.85) ng/dL Short CBC 12/17/24 12/18/24 Range/Units 16:13 05:04 WBC 9.1 7.3 (4.8-10.8) X10*3/uL Hgb 14.9 14.2 (12.0-16.0) g/dl Hct 43.2 42.4 (37.0-47.0) % Plt Count 187 142 L (160-400) X10*3/uL BMP 12/17/24 12/18/24 16:13 05:04 Sodium 139 141 Potassium 4.0 4.2 Chloride 105 106 Carbon Dioxide 26 26 BUN 15 13 Creatinine 0.69 0.76 Calcium 9.9 9.1 D Liver Function 12/17/24 Range/Units 16:13 Total Bilirubin 0.4 (0.0-1.0) mg/dL AST 26 (5-31) U/L ALT 24 (0-31) U/L Alkaline Phosphatase 104 (39-117) U/L Albumin 4.0 (3.5-5.0) g/dL All other labs normal. Assessment and Plan (1) Type 2 diabetes mellitus with hyperglycemia: Qualifiers: Diabetes mellitus assisted insulin use: unspecified assisted insulin use status Qualified Code(s): E11.65 - Type 2 diabetes mellitus with hyperglycemia Status: Acute (2) Osteomyelitis of fourth toe of left foot: Status: Acute Plan 49-year-old female patient with ulceration of the left 4th toe with the possibility of osteomyelitis. Wounds dressed with gauze between the toes to separate the nail. She underwent noninvasive vascular studies in 2020 it may benefit from repeat studies at some point, can probably be done as an outpatient. Continue IV antibiotics. Procedures Date of Service Date of Service: 12/18/24
[2024-12-18 15:15] VITALS: BP 115/57; PULSE 76; RESP 16; TEMP 36.1; O2SAT 94
[2024-12-18 16:15] LABS: Glucose, Whole Blood 255 mg/dL (60-115)
[2024-12-18] MEDS: gadobutroL 10 ML VIAL IVPUSH (17:23)
[2024-12-18] MEDS: Nicotine 14 MG PATCH.TD24 TRANSDERMA (17:32)
[2024-12-18 18:34] LABS: Vancomycin Random 15.5 mcg/mL (15-20)
--- NOTE | 2024-12-18 18:40 | HE.PHANOTE ---
RE: VANCO DOSING Trough came back as 15.5 mg/L after 2 doses. Dose is decreased to 1250 mg q12h, next trough is scheduled for 12/19/24 @1800.
[2024-12-18 19:29] VITALS: BP 106/62; PULSE 77; RESP 16; TEMP 36.6; O2SAT 94
[2024-12-18] MEDS: vancomycin HCL 1,250 MG in 0.9 % Sodium Chloride 250 ML 166.67 MG IV (19:46)
[2024-12-18 20:12] LABS: Glucose, Whole Blood 220 mg/dL (60-115)
[2024-12-19] MEDS: Piperacillin Sodium/Tazobactam 4.5 GM in 0.9 % Sodium Chloride 100 ML IV ×2 (01:15→06:30)
[2024-12-19 03:26] VITALS: BP 120/59; PULSE 75; RESP 18; TEMP 36.1; O2SAT 94
[2024-12-19 06:11] LABS: MANUAL DIFF FLAG NO
[2024-12-19 06:23] LABS: Basophils Absolute Auto 0.1 X10*3/uL (0.0-0.2); Basophils Percent Auto 1.1 % (0-2); Eosinophils Absolute Auto 0.7 X10*3/uL (0.0-0.4); Eosinophils Percent Auto 8.7 % (0-4); Hematocrit 41.4 % (37.0-47.0); Hemoglobin 14.2 g/dl (12.0-16.0); Imm Gran Abs Auto 0.02 X10*3/uL (0.00-0.03); Imm Gran Pct Auto 0.2 % (0.0-0.4); Lymphocytes Absolute Auto 1.9 X10*3/uL (1.2-4.9); Lymphocytes Percent Auto 23.9 % (20-40); Mean Corpuscular HGB Conc 34.3 g/dl (31.0-35.0); Mean Corpuscular Hemoglobin 30.4 pg (27.0-33.0); Mean Corpuscular Volume 88.7 fL (80.0-98.0); Mean Platelet Volume 12.7 fL (9.4-12.3); Monocytes Absolute Auto 0.5 X10*3/uL (0.1-1.2); Monocytes Percent Auto 6.2 % (2-11); Neutrophils Absolute Auto 4.9 x10*3/uL (2.0-8.3); Neutrophils Percent Auto 59.9 % (45-73); Platelet Count 153 X10*3/uL (160-400); Red Blood Count 4.67 X10*6/uL (4.20-5.50); Red Cell Distribution Width 13.2 % (11.0-16.0); White Blood Count 8.1 X10*3/uL (4.8-10.8)
[2024-12-19 06:29] LABS: Creatinine Clr Calc Pharmacy 124.1; Estimated Glomerular Filt Rate > 60
[2024-12-19 06:30] LABS: Anion Gap 10 (12-20); Blood Urea Nitrogen 14 mg/dL (9-16); Calcium 9.2 mg/dL (8.4-10.2); Carbon Dioxide 26 mmol/L (22-29); Chloride 106 mmol/L (96-108); Estimated Glomerular Filt Rate > 60; Glucose Random 206 mg/dL (60-115); Potassium 3.9 mmol/L (3.3-5.1); Sodium 138 mmol/L (135-145)
[2024-12-19] MEDS: Levothyroxine Sodium 200 MCG TABLET PO (06:30)
[2024-12-19] MEDS: 0.9 % Sodium Chloride Flush 3 ML SYRINGE IVFLUSH (07:32)
[2024-12-19 07:39] LABS: Glucose, Whole Blood 226 mg/dL (60-115)
[2024-12-19 07:48] VITALS: BP 109/59; PULSE 66; RESP 16; TEMP 36.2; O2SAT 92
[2024-12-19] MEDS: vancomycin HCL 1,250 MG in 0.9 % Sodium Chloride 250 ML 166.67 MG IV (08:02)
[2024-12-19] MEDS: Enoxaparin Sodium 40 MG/0.4 ML SYRINGE SUBCUT (08:03)
[2024-12-19] MEDS: Insulin Lispro 100 UNIT/ML 3 ML VIAL SUBCUT ×2 (08:03→11:49)
[2024-12-19] MEDS: LORazepam 0.5 MG TABLET 0.25 MG PO (08:16)
[2024-12-19] MEDS: Nicotine 14 MG PATCH.TD24 TRANSDERMA (08:17)
[2024-12-19 11:10] LABS: Glucose, Whole Blood 169 mg/dL (60-115)
--- NOTE | 2024-12-19 14:12 | HO.WOUND ---
Wound Consult: Defer to General Surgery - Orders in note by Dr. Parmar 12/18/24. 49yr old? admitted to [facility] [place] on 12/17/24 - See progress notes and H&P for detailed history.? Wound consult placed for Left 4th and 5th toe wound.? Chart review performed and seen by Dr. Parmar from general surgery. He made topical recommendations for dry gauze to allow for healing and to protect from nail that is creating wound. This wound and patient was not assessed by this scenario writer at this time will defer topical recommendations to General Surgery. Recommendations: Defer to general surgery topical order below from General surgery note on 12/18/24. Left foot web space of 4th and 5th toe. Cleanse with NS pat dry. Apply skin prep, apply gauze between the toes to separate the nail. Change daily.
--- NOTE | 2024-12-19 14:35 | W.PM.IDCN ---
History of Present Illness Data of Consult Service Date: 12/19/24 Requesting physician: Radha Sanz Primary Care Provider: Evie Hickman MD HPI Reason for consult: left fourth toe OM She presents with fourth toe swelling,exudate and odor for last several weeks. She has no fever or chills. She has MRI proximal fourth OM Review of Systems Review of Systems: Yes all other systems are reviewed and are negative PMFSH Past Medical History Medical History Former cigarette smoker Left anterior knee pain Diabetic neuropathy Ulcer of lower extremity due to diabetes Morbid obesity Diabetes mellitus with hyperglycemia, with long-term current use of insulin Anxiety and depression Toenail fungus Cigarette smoker motivated to quit Depression Type 2 diabetes mellitus with hyperglycemia, without long-term current use of insulin Multinodular thyroid Vitamin D deficiency Hypothyroidism HLD (hyperlipidemia) HTN (hypertension) T2DM (type 2 diabetes mellitus) Family History Family History Father Emphysema lung Substance use disorder Mother Atrial fibrillation Family history: reviewed and not pertinent Surgical History Surgical History Umbilical hernia, incarcerated Pyloric stenosis Hx of cholecystectomy History of tooth extraction Social History Social History Household Members: Children Household Members Other:: 3 children Housing: House Do you presently have visiting nurse or other home services: No Alcohol intake: never Patient Tobacco Use Status: Current everyday Tobacco user Tobacco use type: Cigarette Cigarette Packs Per Day: 0.25 Cigarettes Per Day: 20 Years Smoked: 9 Smoked in Last 30 Days: Yes e-Cigarette/Vaping Use: Never Used Currently Displaying Signs/Symptoms of Drug Intoxication Withdrawal: No Have you been hit, kicked, punched, or otherwise hurt by someone within the past year? If so, by whom?: No Do you feel safe in your current relationship?: No Is there a partner from a previous relationship who is making you feel unsafe now?: No Are you made to feel afraid or neglected: No Advance Directives: Yes Advance Directives Information Provided: Yes Advance Directives on File: No Advance Directives Date on File: 12/18/24 Do you have a plan to hurt others: No Plan Recently lost weight without trying: No Eating poorly because of decreased appetite: No Nutrition Risks: Diabetes new onset/Uncontrolled Patient : No : No Poor oral hygiene: No service: No Current occupational status: employed Cognitive needs: No Hearing needs: No Vision needs: Yes Meds Allergies Allergy/AdvReac Type Severity Reaction Status Date / Time doxycycline AdvReac GI upset Verified 12/17/24 15:41 Active Medications: Current Medications Acetaminophen (Acetaminophen 325 Mg Tablet) 650 mg PO Q6H PRN PRN Reason: Pain, Mild 1-3,fever,headache Calcium Carbonate (Calcium Carbonate 750 Mg Tab.Chew) 750 mg PO Q4H PRN PRN Reason: Heartburn Dextrose (Dextrose 50 % 25 Gm/50 Ml Syringe) 25 gm IVPUSH Q15M PRN; Protocol PRN Reason: per Hypoglycemia Standing Ord. Enoxaparin Sodium (Enoxaparin Sodium 40 Mg/0.4 Ml Syringe) 40 mg SUBCUT Q24H [facility] Last Admin: 12/19/24 08:03 Dose: 40 mg Glucose (Glucose Gel 15 Gm Gel..Gram.) 15 gm PO Q15M PRN; Protocol PRN Reason: per Hypoglycemia Standing Ord. Piperacillin Sod/Tazobactam (Sod 4.5 gm/ Sodium Chloride) 100 mls @ 200 mls/hr IV Q6H [facility] Last Infusion: 12/19/24 07:36 Dose: Infused Vancomycin HCl 1,250 mg/ (Sodium Chloride) 250 mls @ 166.667 mls/hr IV Q12H [facility] Last Infusion: 12/19/24 10:13 Dose: Infused Insulin Human Lispro (Insulin Lispro 100 Unit/Ml 3 Ml Vial) 0 unit SUBCUT QIDACHS [facility]; Protocol Last Admin: 12/19/24 11:49 Dose: 2 unit Levothyroxine Sodium (Levothyroxine Sodium 200 Mcg Tablet) 200 mcg PO DAILY@0600 [facility] Last Admin: 12/19/24 06:30 Dose: 200 mcg Magnesium Hydroxide (Milk Of Magnesia 30 Ml Oral.Susp) 30 ml PO DAILY PRN PRN Reason: Constipation Melatonin (Melatonin 3 Mg Tablet) 6 mg PO BEDTIME PRN PRN Reason: Insomnia Nicotine (Nicotine 14 Mg Patch.Td24) 14 mg TRANSDERMA DAILY [facility] Last Admin: 12/19/24 08:17 Dose: 14 mg Nicotine Polacrilex (Nicotine Polacrilex 2 Mg Gum) 2 mg BUCCAL Q1H PRN PRN Reason: Nicotine Cravings Pharmacy Consult (Consult Rx Vancomycin Dosing) 1 each MISCELLANE DAILY PRN PRN Reason: Consult order Sodium Chloride (0.9 % Sodium Chloride Flush 3 Ml Syringe) 3 ml IVFLUSH QSHIFT [facility] Last Admin: 12/19/24 07:32 Dose: 3 ml Physical Exam Vital Signs: Vital Signs: Last Vital Signs Temp 97.1 F 12/19/24 07:48 Pulse 66 12/19/24 07:48 Resp 16 12/19/24 07:48 BP 109/59 L 12/19/24 07:48 Pulse Ox 92 12/19/24 07:48 O2 Del Method Room Air 12/19/24 07:48 BMI result Body Mass Index 40.5 Const: General: cooperative HEENT: Head: Yes normal to inspection Face and sinus: Yes normal facial exam Mouth: Normal oral and palatal mucosa present Teeth and gingiva: dentition normal Eyes: General: appearance normal, both eyes and all related structures Pupils: Equal, round and reactive pupils present Resp: Effort & Inspection: normal respiratory effort Cardio: Rate: regular rate Rhythm: regular rhythm GI: Palpation (GI): Soft to palpation and nontender : General: Yes no CVA tenderness Back/Spine/Pelvis: Back: no CVA tenderness Skin: General skin exam: no rashes or lesions noted Neuro: General: moves all extremities Cranial nerves: Yes Equal, round and reactive pupils present Extrem: Other: foot wrapped,pic shows exudate Psych: Appearance: grossly normal Results Labs 12/19/24 05:29 12/19/24 05:29 Labs: Short CBC 12/19/24 Range/Units 05:29 WBC 8.1 (4.8-10.8) X10*3/uL Hgb 14.2 (12.0-16.0) g/dl Hct 41.4 (37.0-47.0) % Plt Count 153 L (160-400) X10*3/uL BMP 12/19/24 12/19/24 05:29 05:29 Sodium 138 Potassium 3.9 Chloride 106 Carbon Dioxide 26 BUN 14 Creatinine 0.79 0.81 Calcium 9.2 Microbiology Microbiology Results: Microbiology 12/17/24 16:13 Blood - Venous Blood Culture - Preliminary No growth after 24 hours. 12/17/24 16:13 Blood - Venous Blood Culture - Preliminary No growth after 24 hours. Assessment and Plan (1) Diabetic ulcer of toe: Qualifiers: Diabetes mellitus type: type 2 Laterality: left Non-pressure ulcer stage: unspecified non-pressure ulcer stage Qualified Code(s): E11.621 - Type 2 diabetes mellitus with foot ulcer; L97.529 - Non-pressure chronic ulcer of other part of left foot with unspecified severity Status: Acute Plan She has OM,acute. She declines prior longtermIV.. Would give po linezolid for a month and then po PCN V 500 mg bid,as long as needeed. Check CBC in one week
--- NOTE | 2024-12-19 15:08 | P.DS_ITS ---
DS: Providers Provider Date of Service: 12/19/24 Date of admission: 12/17/24 20:24 Date of discharge: 12/19/24 Primary care physician: Evie Hickman MD Consults: 12/17/24 22:24 Consult to General Surgery [place]ine [place]ing [place] [facility] [place] Reason for consultation: Left 4th toe infected diabetic ulcer Has provider been notified: No 12/18/24 11:10 Consult to Wound Care Routine Reason for consultation: diabetic foot ulcer left 4-5th toe 12/19/24 07:23 Consult to Infectious Diseases Routine Consulting Provider[place] [facility] [facility] [place] [facility] Reason for consultation: OM Foot DS: Diagnosis Discharge Diagnosis (1) Diabetic ulcer of toe: Status: Acute (2) Osteomyelitis of fourth toe of left foot: Status: Acute (3) Onychomycosis: Status: Acute (4) Morbid obesity: Status: Acute (5) Athletes foot: Status: Acute DS: Summary Hospital Course Hospital Course: Admission note HPI Pam Navarrete is a 49 years old woman with past medical history significant for obesity, type 2 diabetes mellitus, obstructive sleep apnea noncompliant with CPAP, morbid obesity, hypothyroidism, hyperlipidemia and hypertension presents to the ED for left 4th toe ulcer. HPI was provided by patient's son who was at bedside as the patient was sleeping. She was given Ativan 1 mg PO. According to his son the patient has been complaining of pain in the left foot when walking and also was noted about 2 weeks ago. In the ED she was found to have stable vital signs. CBC CMP are normal. Glucose is 201. There is no lactic acidosis. Left foot x-ray showed soft tissue swelling and suspected soft tissue gas in the lateral 4 digits raises question of overlying skin ulceration penetrating trauma. It does resolve sort of periosteal new bone formation along the lateral metaphysis of the proximal phalanx raising question of osteomyelitis. ED tx: Acetaminophen 975 mg p.o., vancomycin 1.5 mg IV, Zosyn 3.375 g IV, Ativan 1 mg p.o., nicotine patch 21 mcg Hospital course The patient was admitted for treatment of Left 4th toe infected diabetic ulcer as XR of foot suggesting possible associated osteomyelitis confirmed by MRI of the foot with elevated ESR in 30s, Treated with IV Zosyn and vancomycin as she was seen in ID and Surgery consult who recommended IV antibiotics for 6 weeks. The patient did not want IV antibiotics and asked for alternative PO treatment. discussed with ID who recommended Zyvox for 4 weeks followed by Doxycycline for 4 weeks. She will need podiatry services for onchomycosis on discharge. Prescribed Clotrimazole for athlete foot. For Type 2 diabetes mellitus with hyperglycemia she was kept on Insulin sliding scale. Advised to continue Metformin at home and start Glipizide 10 mg daily XL as HbA1c of 9.9. Regarding Morbid obesity with BMI 40.5 advised Weight loss. Discharge plan Diabetic diet and lose weight Start Glipizide 10 mg for sugar control, continue Metformin Use Clotrimazole cream for fungal infection in feet Follow with podaitry for nails fungal infection Take Zyvox for 4 weeks Then take Doxycycline for 4 more weeks Follow with PCP as needed for further evaluation Time Attestation Discharge Coordination Time (in mins): 41 Quality: Safe Use of Opioids Does Pt have an Active Cancer Diagnosis on the Problem List?: No Quality: Stroke Does the patient have a stroke diagnosis?: No Physical Exam Vital Signs: Vital Signs: Last Vital Signs Temp 97.1 F 12/19/24 07:48 Pulse 66 12/19/24 07:48 Resp 16 12/19/24 07:48 BP 109/59 L 12/19/24 07:48 Pulse Ox 92 12/19/24 07:48 O2 Del Method Room Air 12/19/24 07:48 BMI result Body Mass Index 40.5 Const: Other: Constitutional : Awake, interactive, not in distress Neck : Normal inspection, Supple Cardiovascular : RRR, no JVP, no lower extremity edema Respiratory : good bilateral air entry, no crackles, wheezes or rhonchi Gastrointestinal: soft, lax, Normal bowel sounds, Non tender Skin : Warm, Dry, left foot 4th toe ulcer noted over lateral aspect. foul smelling and purulent discharge. Neurological : Alert & oriented x3, No focal deficit DS: Data Data Completed and Pending Labs on day of discharge: Laboratory Results - last 24 hr 12/18/24 12/18/24 12/18/24 16:11 18:03 19:31 WBC RBC Hgb Hct MCV MCH MCHC RDW Plt Count MPV Immature Gran % (Auto) Neut % (Auto) Lymph % (Auto) Milam % (Auto) Eos % (Auto) Baso % (Auto) Lymph # (Auto) Milam # (Auto) Eos # (Auto) Baso # (Auto) Abs Immat Gran (auto) Absolute Neuts (auto) Absolute Nucleated RBC Nucleated RBC % (auto) Sodium Potassium Chloride Carbon Dioxide Anion Gap BUN Creatinine Estim Creat Clear Calc Estimated GFR POC Glucose 255 H 220 H Random Glucose Calcium Random Vancomycin 15.5 12/19/24 12/19/24 12/19/24 05:29 05:29 05:29 WBC 8.1 RBC 4.67 Hgb 14.2 Hct 41.4 MCV 88.7 MCH 30.4 MCHC 34.3 RDW 13.2 Plt Count 153 L MPV 12.7 H Immature Gran % (Auto) 0.2 Neut % (Auto) 59.9 Lymph % (Auto) 23.9 Milam % (Auto) 6.2 Eos % (Auto) 8.7 H Baso % (Auto) 1.1 Lymph # (Auto) 1.9 Milam # (Auto) 0.5 Eos # (Auto) 0.7 H Baso # (Auto) 0.1 Abs Immat Gran (auto) 0.02 Absolute Neuts (auto) 4.9 Absolute Nucleated RBC 0.000 Nucleated RBC % (auto) 0.0 Sodium 138 Potassium 3.9 Chloride 106 Carbon Dioxide 26 Anion Gap 10 L BUN 14 Creatinine 0.79 0.81 Estim Creat Clear Calc 124.1 121.0 Estimated GFR > 60 POC Glucose Random Glucose Calcium Random Vancomycin 12/19/24 12/19/24 12/19/24 05:29 07:20 11:07 WBC RBC Hgb Hct MCV MCH MCHC RDW Plt Count MPV Immature Gran % (Auto) Neut % (Auto) Lymph % (Auto) Milam % (Auto) Eos % (Auto) Baso % (Auto) Lymph # (Auto) Milam # (Auto) Eos # (Auto) Baso # (Auto) Abs Immat Gran (auto) Absolute Neuts (auto) Absolute Nucleated RBC Nucleated RBC % (auto) Sodium Potassium Chloride Carbon Dioxide Anion Gap BUN Creatinine Estim Creat Clear Calc Estimated GFR > 60 POC Glucose 226 H 169 H Random Glucose 206 H Calcium 9.2 Random Vancomycin Preliminary micro results at discharge 12/17/24 16:13 Blood Culture - Preliminary Blood - Venous No growth after 24 hours. 12/17/24 16:13 Blood Culture - Preliminary Blood - Venous No growth after 24 hours. Imaging MRI Foot : Radiologist's impression: IMPRESSION: Possible dorsal cellulitis with developing 4th toe proximal phalangeal osteomyelitis. Clinical follow-up recommended. Discharge Plan Discharge Anticipated Discharge Date/Time: 12/19/24 14:34 Patient Disposition: Home, Self-Care Discharge Diagnosis: OSeteomyelitis Uncontrolled diabetes type 2 Referrals: Evie Hickman MD [Primary Care Provider, Internal Medicine] - 1 Week Discharge Medications: New glipizide 10 mg tablet extended release 24hr 10 mg PO DAILY Qty: 90 0RF linezolid [Zyvox] 600 mg tablet 600 mg PO BID 28 Days Qty: 56 0RF doxycycline monohydrate 100 mg capsule 100 mg PO BID 28 Days Qty: 56 0RF Rx Instructions: To start After finishing Zyvox clotrimazole 1 % cream 1 appl topical BID 14 Days Qty: 30 1RF Rx Instructions: Feet and between toes Continued (DME) pen needle, diabetic 32 gauge x 5/16 needle See Rx Instructions .Route Qty: 100 1RF Rx Instructions: As directed to inject insulin once a day (DME) pen needle, diabetic [BD Ultra-Fine Short Pen Needle] 31 gauge x 5/16 needle See Rx Instructions .Route Qty: 100 4RF Rx Instructions: As directed (DME) blood-glucose meter [FreeStyle Lite Meter] Kit See Rx Instructions .Route Qty: 1 0RF Rx Instructions: As directed (DME) FreeStyle Lite Strips Strip See Rx Instructions .Route Qty: 100 5RF Rx Instructions: check fasting blood sugartwice a day AC (DME) lancets [FreeStyle Lancets] 28 gauge misc See Rx Instructions .Route Qty: 200 3RF Rx Instructions: test blood sugars twice a day levothyroxine 200 mcg tablet 200 mcg PO DAILY Qty: 90 1RF (DME) FreeStyle Laverne 3 Sensor Device See Rx Instructions .Route Qty: 2 5RF Rx Instructions: As directed to test blood sugar 4 times per day (DME) lancets 28 gauge misc See Rx Instructions topical TID Qty: 100 5RF Rx Instructions: check blood sugar twice a day before meals As directed metformin 500 mg tablet extended release 24 hr 1,500 mg PO DAILY Qty: 270 3RF Discharge Orders: Discharge Order (Routine); Ordered 12/19/24 Ordered By: Radha Sanz Diet: Diabetic diet Activity on Discharge: As tolerated Stand Alone Forms: Patient Portal Discharge page Print Language: Italian Care Plan Goals: Diabetic diet and lose weight Start Glipizide 10 mg for sugar control, continue Metformin Use Clotrimazole cream for fungal infection in feet Follow with podaitry for nails fungal infection Take Zyvox for 4 weeks Then take Doxycycline for 4 more weeks Follow with PCP as needed for further evaluation Health Concerns: Osteomyelitis of toe Uncontrolled diabetes Athlete foot Plan of Treatment: Antibiotics better sugar control Assessment: as above
[2024-12-19 15:31] VITALS: BP 137/85; PULSE 75; RESP 16; TEMP 36; O2SAT 97
--- NOTE | 2024-12-19 15:32 | MHC.CM.PN ---
pt dcd home with [facility] care givers
[2024-12-19 15:35] LABS: Glucose, Whole Blood 173 mg/dL (60-115)
--- NOTE | 2024-12-19 15:47 | MHC.CM.PN ---
pt dcd home self
--- NOTE | 2024-12-19 17:35 | P.CDIM_ITS ---
PROVIDER RESPONSE TEXT: To clarify, the appropriate diagnosis supported by the clinical indicators: Acute QUERY TEXT: PHYSICIAN'S DOCUMENTATION REQUEST Date of Query: 12/19/2024 12:32 PM EDT Patient Name: Pam Navarrete Admit Date: 12/18/2024 Dear Radha Sanz MD, A review of the medical record indicates additional documentation may be needed. Please review below and update the documentation accordingly. Clinical Indicators: left 4th toe infected diabetic ulcer, possible associated osteomyelitis IV Zosyn, IV Vancomycin MRI done 12/18/24 Clarify which of the following accurately represents the acuity of the Osteomyelitis. Possible options might include: Acute Acute on chronic Compensated Chronic stable condition Remission Other (explain) Clinically unable to determine (explain) Thank you, Halle Aldana RN Use of terms such as suspected, likely, concern for, or probable (associated with a specific diagnosis that is being evaluated, monitored, or treated as if it exists) are acceptable and can be coded in the inpatient setting, when documented at the time of discharge. Please use your independent medical judgment in providing your response. THIS QUERY IS PART OF THE PERMANENT MEDICAL RECORD
== END 2024-12-19 16:30 | disposition home or self-care (01) | DRG 344 ==
LOC: HO.ED 20:16 → HO.EDOVER 20:33 → HO.S3 12-18 07:29
PROVIDERS: Physician Assistant; Admitting Provider Internal Medicine; Emergency Provider Emergency Medicine Emergency Medical Services; PCP Internal Medicine; Visit Provider Student in an Organized Health Care Education/Training Program
DX: E11.69 Type 2 diabetes mellitus with other specified complication (principal); M86.172 Other acute osteomyelitis, left ankle and foot; B35.1 Tinea unguium; E03.9 Hypothyroidism, unspecified; E11.621 Type 2 diabetes mellitus with foot ulcer; B35.3 Tinea pedis; E11.65 Type 2 diabetes mellitus with hyperglycemia; G47.33 Obstructive sleep apnea (adult) (pediatric); F17.210 Nicotine dependence, cigarettes, uncomplicated; E66.01 Morbid (severe) obesity due to excess calories; Z71.6 Tobacco abuse counseling; I10 Essential (primary) hypertension; E78.5 Hyperlipidemia, unspecified; Z68.41 Body mass index [BMI] 40.0-44.9, adult; L97.529 Non-pressure chronic ulcer of other part of left foot with unspecified severity; Z91.199 Patient's noncompliance with other medical treatment and regimen due to unspecified reason; Z71.3 Dietary counseling and surveillance; Z79.84 Long term (current) use of oral hypoglycemic drugs; Z79.890 Hormone replacement therapy; Z79.899 Other long term (current) drug therapy
CPT/HCPCS: 36415; 73720; 80048; 80053; 80061; 80202; 82565; 82947; 83036; 83605; 83690; 84439; 84443; 85025; 85652; 86140; 87040; 99285; A9585; J1650; J2543; J3371

== ENCOUNTER 2024-12-17 20:24 | Outpatient (BNV) | payer OTHER, SELFPAY | END 2024-12-18 07:00 | PROVIDERS: Admitting Provider Internal Medicine; Emergency Provider Emergency Medicine Emergency Medical Services; PCP Internal Medicine; Visit Provider Specialist | DX: L97.529 Non-pressure chronic ulcer of other part of left foot with unspecified severity (principal) | CPT/HCPCS: 73720 ==

== ENCOUNTER → 2024-12-17 20:24 | Outpatient (BNV) | payer OTHER, SELFPAY | PROVIDERS: Admitting Provider Internal Medicine; Emergency Provider Emergency Medicine Emergency Medical Services; PCP Internal Medicine; Visit Provider Surgery | DX: E11.65 Type 2 diabetes mellitus with hyperglycemia (principal); M86.9 Osteomyelitis, unspecified | CPT/HCPCS: 99222 ==

== ENCOUNTER → 2024-12-17 20:24 | Outpatient (BNV) | payer OTHER, SELFPAY | PROVIDERS: Admitting Provider Internal Medicine; Emergency Provider Emergency Medicine Emergency Medical Services; PCP Internal Medicine; Visit Provider Internal Medicine | DX: E11.621 Type 2 diabetes mellitus with foot ulcer (principal); L97.529 Non-pressure chronic ulcer of other part of left foot with unspecified severity; M86.9 Osteomyelitis, unspecified; B35.1 Tinea unguium; E66.01 Morbid (severe) obesity due to excess calories; B35.3 Tinea pedis | CPT/HCPCS: 99222; 99233; 99239 ==

== ENCOUNTER → 2024-12-17 20:24 | Outpatient (BNV) | payer OTHER, SELFPAY | PROVIDERS: Admitting Provider Internal Medicine; Emergency Provider Emergency Medicine Emergency Medical Services; PCP Internal Medicine; Visit Provider Internal Medicine | DX: E11.621 Type 2 diabetes mellitus with foot ulcer (principal); L97.529 Non-pressure chronic ulcer of other part of left foot with unspecified severity | CPT/HCPCS: 99222 ==

== ENCOUNTER 2024-12-25 13:03 | Outpatient (AMB) | payer OTHER, SELFPAY ==
[2024-12-25 13:09] VITALS: BP 136/92; PULSE 85; TEMP 36.6; O2SAT 94; BMI 40.1
--- NOTE | 2024-12-25 13:09 | MHC.PC.OV ---
Vital Signs 12/25/24 13:09 Height 5 ft 10 in Weight 279 lb 8 oz BMI 40.1 BP 136/92 H Blood Pressure Location Lt brachial Position Sitting Pulse 85 Pulse Source Pulse Oximeter Temp 97.8 F Temp Source Oral Pulse Oximetry (%) 94 Oxygen Delivery Method Room Air Intake Visit Reasons: TCM/DM ulcer toe Allergies doxycycline Adverse Reaction (Verified 12/25/24 13:14) GI upset Tobacco use date assessed: 01/11/24 Dental Screening Dental Screen Date: 01/11/24 Did you have a dental visit in the last 12 months?: No Was dental information given to patient?: No HPI HPI Comments History of Present Illness Details Patient is a 49-year-old female with a past medical history of obesity, type 2 diabetes, TAWANDA noncompliant with CPAP, hypothyroidism, HLD, HTN who went to the emergency department on December 17 after she had an x-ray that showed possible osteomyelitis in her left 4th toe. She had been having pain for about 2 weeks so she went to the [facility] walk-in clinic and they did an x-ray which found possible osteomyelitis. She was admitted to [facility] where an MRI confirmed left 4th proximal phalangeal osteomyelitis. She also had an elevated ESR in the 30s. In the emergency department she was given IV Zosyn and vancomycin. She was seen by infectious disease and had a surgery consult, they recommended IV antibiotics for 6 weeks. The patient did not want and IV antibiotics and asked for alternative p.o. treatment. At this point, ID recommended Zyvox for 4 weeks followed by doxycycline for 4 weeks along with Podiatry Services for onychomycosis on discharge on 12/19. She was also prescribed clotrimazole to manage tinea pedis. While in the hospital, it was noted her A1c was 9.9 so they started her on glipizide 10 mg daily and they continued her metformin along with recommending weight loss. Since discharge, she has been the Zyvox twice daily, as prescribed. She states she has no toe pain at all, she is able to walk well. She has not followed up with Podiatry yet, she has to find one. She tells me she started the glipizide but stopped it and went back to the metformin. [facility] Medical History (Updated 12/25/24 @ 13:51 by Alyssa Morelos PA-C) T2DM (type 2 diabetes mellitus) Onychomycosis Diabetic ulcer of toe Type 2 diabetes mellitus with hyperglycemia Former cigarette smoker Left anterior knee pain Diabetic neuropathy Ulcer of lower extremity due to diabetes Morbid obesity Diabetes mellitus with hyperglycemia, with long-term current use of insulin Anxiety and depression Toenail fungus Cigarette smoker motivated to quit Depression Type 2 diabetes mellitus with hyperglycemia, without long-term current use of insulin Multinodular thyroid Vitamin D deficiency Hypothyroidism HLD (hyperlipidemia) HTN (hypertension) Surgical History Umbilical hernia, incarcerated Pyloric stenosis Hx of cholecystectomy History of tooth extraction Family History Father Emphysema lung Substance use disorder Mother Atrial fibrillation Social History Household Members: Children Household Members Other:: 3 children Housing: House Do you presently have visiting nurse or other home services: No Alcohol intake: never Patient Tobacco Use Status: Current everyday Tobacco user Tobacco use type: Cigarette Cigarette Packs Per Day: 0.25 Cigarettes Per Day: 20 Years Smoked: 9 e-Cigarette/Vaping Use: Never Used Advance Directives Date on File: 12/18/24 service: No Current occupational status: employed Cognitive needs: No Hearing needs: No Vision needs: Yes Questionnaire PHQ-9 Over the last 2 weeks, how often have you been bothered by any of the following problems? 1. Little interest or pleasure in doing things: several days 2. Feeling down, depressed, or hopeless: several days 3. Trouble falling or staying asleep, or sleeping too much: several days 4. Feeling tired or having little energy: several days 5. Poor appetite or overeating: several days 6. Feeling bad about yourself - or that you are a failure or have let yourself or your family down: several days 7. Trouble concentrating on things, such as reading the newspaper or watching television: not at all 8. Moving or speaking so slowly that other people could have noticed. Or the opposite - being so fidgety or restless that you have been moving around a lot more than usual: not at all 9. Thoughts that you would be better off or of hurting yourself in some way: not at all Total score: 6 Depression Screening Interpretation: Positive Depression Screening Follow-up: Existing condition, New Medication prescribed, Community Mental Health Worker F/U and Follow-up Visit Requested Depression Screening Done: Yes 95132 - PHQ-9 Billing: Yes Source: Developed by Drs. Jose Wei, Jayleen Hanson, Wyatt Jung and colleagues, with an educational margaret from [employer]. Thrive Questionnaire Date Thrive assessed: 12/25/24 I am a: Patient What is your living situation today?: I have a place to live, but I am worried about losing it in the future Within the past 12 months, did the food you bought not last and you didn't have the money to get more?: Sometimes True Within the past 12 months, did you worry whether your food would run out before you got money to buy more?: Sometimes True Do you have trouble paying for medicines?: Yes Do you have trouble getting transportation to medical appointments?: No Do you have trouble paying your heating and electricity bill?: I choose not to answer this question Do you have trouble taking care of your child, family member or friend?: I choose not to answer this question Do you have trouble with day-to-day activities such as bathing, preparing meals, shopping, managing finances, etc.?: I choose not to answer this question Are you currently unemployed and looking for a job?: No Are you interested in more education?: No Please select the resources that you would like help with: None Currently or been in a relationship where the following occur: I choose not to answer THRIVE Score: 3 AUDIT C Alcohol Use Questionnaire (AUDIT-C) 1. How often do you have a drink containing alcohol?: Never Total Score: 0 CODY-7 AMB Questionnaire CODY-7 Date CODY - 7 assessed: 12/03/23 Feeling nervous, anxious, or on edge: 0 = Not at all Not being able to stop or control worryin = Several days Worrying too much about different things: 1 = Several days Trouble relaxin = Several days Being so restless that it is hard to sit still: 0 = Not at all Becoming easily annoyed or irritable: 3 = Nearly every day Feeling afraid as if something awful might happen: 2 = More than half the days Total CODY-7 score (0-4 normal; 5-9 mild; 10-14 moderate; 15-21 severe): 8 Source: Developed by Drs. Jose Wei, Jayleen Hanson, Wyatt Jung and colleagues, with an educational margaret from [employer]. Review of Systems Const All systems reviewed & are unremarkable except as noted in HPI and below Physical exam (Primary Care) Vital Signs: Last Vital Signs Temp 97.8 F 12/25/24 13:09 Pulse 85 12/25/24 13:09 BP 136/92 H 12/25/24 13:09 Pulse Ox 94 12/25/24 13:09 Oxygen Delivery Method Room Air 12/25/24 13:09 BMI result Body Mass Index 40.1 Tobacco/Smoking Status: Tobacco use Status Tobacco use date assessed 01/11/24 12/25/24 13:15 Patient Tobacco Use Status Current everyday Tobacco 12/25/24 13:15 Tobacco use type Cigarette 12/25/24 13:15 e-Cigarette/Vaping Use Never Used 12/25/24 13:15 PHQ-9: PHQ-9 Score PHQ-9: Total score 7 12/25/24 13:33 Depression Screening Interpretation: Positive Depression Screening Follow-up: Existing condition, New Medication prescribed, Community Mental Health Worker F/U and Follow-up Visit Requested Thrive Assessment: Date of Thrive Assessment Date Thrive assessed 12/18/24 12/25/24 13:15 Currently or been in a relationship where the following occur: I choose not to answer Const General: cooperative, healthy appearing, comfortable, no acute distress and well developed Orientation/consciousness: patient oriented x3 Limitations: no limitations HENIL Head: Yes normal to inspection Ears: hearing grossly normal bilaterally General nose exam: Normal external nose present Face and sinus: Yes normal facial exam Eyes General: appearance normal, both eyes and all related structures Neck Neck: Yes normal visual inspection and Yes full ROM Resp Effort & Inspection: normal respiratory effort and able to speak in complete sentences Skin General skin exam: no rashes or lesions noted Neuro General: patient oriented x3 Extrem General: Yes normal to inspection Left lower extremity: foot Details: abnormal to inspection (left 4th digit with ulcer, no discharge, warmth, erythema noted), toes with normal ROM, vascular exam Details: normal capillary refill and motor-sensory exam Details: light-touch normal; no unusual warmth and no ecchymosis Coding Level of Care Code Est Pt Level 4 (63060) Diagnoses Osteomyelitis of fourth toe of left foot M86.9 Onychomycosis B35.1 Type 2 diabetes mellitus with hyperglycemia, with long-term current use of insulin E11.65; Z79.4 Diabetes mellitus complication status: with hyperglycemia Diabetes mellitus intermediate project manager insulin use: with prison use Hospital discharge follow-up Z09 Additional Codes PHQ-9 - 23540 - PHQ-9 Billing: Yes ([id number]) Assessment & Plan Assessment & Plan (1) Osteomyelitis of fourth toe of left foot: Code(s): M86.9 - Osteomyelitis, unspecified Category: Medical Plan: Vital signs are stable, patient well-appearing and left 4th toe looks improved from previous descriptions. Patient should continue to take her antibiotics, as prescribed. I also did send a podiatry referral for follow-up. Patient knows if she develops any fevers, the wound develops any discharge pain or change in color that she should come to the walk-in clinic or go to the emergency department. (2) Onychomycosis: Code(s): B35.1 - Tinea unguium Category: Medical Plan: Referral to podiatry (3) T2DM (type 2 diabetes mellitus): Code(s): E11.9 - Type 2 diabetes mellitus without complications Category: Medical Qualifiers: Diabetes mellitus complication status: with hyperglycemia Diabetes mellitus prison insulin use: with intermediate project manager use Qualified Code(s): E11.65 - Type 2 diabetes mellitus with hyperglycemia; Z79.4 - predatory animal exterminator (current) use of insulin Plan: Recommended patient restart taking the glipizide along with her metformin to manage her diabetes. She can follow up on this with her PCP at her next visit with an A1c. (4) Hospital discharge follow-up: Code(s): Z09 - Encounter for follow-up examination after completed treatment for conditions other than malignant neoplasm Category: Medical Plan: As above Orders: Referrals Podiatry Referral B35.1 - Tinea unguium, M86.9 - Osteomyelitis, unspecified
== END 2024-12-25 13:52 | disposition home or self-care (01) ==
LOC: HO.HMCC 13:04
PROVIDERS: PCP Internal Medicine; Visit Provider Physician Assistant
DX: M86.9 Osteomyelitis, unspecified (principal); B35.1 Tinea unguium; E11.65 Type 2 diabetes mellitus with hyperglycemia; Z79.4 Long term (current) use of insulin; Z09 Encounter for follow-up examination after completed treatment for conditions other than malignant neoplasm

== ENCOUNTER → 2024-12-25 13:04 | Outpatient (BNVA) | payer OTHER, SELFPAY | PROVIDERS: PCP Internal Medicine | DX: Z09 Encounter for follow-up examination after completed treatment for conditions other than malignant neoplasm (principal); E11.621 Type 2 diabetes mellitus with foot ulcer; M86.9 Osteomyelitis, unspecified; F17.200 Nicotine dependence, unspecified, uncomplicated; B35.1 Tinea unguium; E11.65 Type 2 diabetes mellitus with hyperglycemia; Z79.4 Long term (current) use of insulin; Z71.6 Tobacco abuse counseling; Z13.31 Encounter for screening for depression | CPT/HCPCS: 96127 ==

== ENCOUNTER → 2025-01-01 09:27 | Outpatient (BNVA) | payer OTHER, SELFPAY | PROVIDERS: PCP Internal Medicine | DX: E11.9 Type 2 diabetes mellitus without complications (principal) | CPT/HCPCS: 99211 ==

== ENCOUNTER 2025-01-21 07:36 | Outpatient (REF) | payer OTHER, SELFPAY ==
[2025-01-21 10:17] LABS: Hematocrit 42.5 % (37.0-47.0); Hemoglobin 14.2 g/dl (12.0-16.0); Imm Gran Abs Auto 0.02 X10*3/uL (0.00-0.03); Imm Gran Pct Auto 0.3 % (0.0-0.4); Lymphocytes Absolute Auto 2.0 X10*3/uL (1.2-4.9); MANUAL DIFF FLAG NO; Mean Corpuscular HGB Conc 33.4 g/dl (31.0-35.0); Mean Corpuscular Hemoglobin 31.0 pg (27.0-33.0); Mean Corpuscular Volume 92.8 fL (80.0-98.0); NRBC Abs Auto 0.000 X10*3/uL (0.0-0.012); NRBC Pct Auto 0.0 /100WBC (0.0-0.2); Platelet Count 147 X10*3/uL (160-400); Red Blood Count 4.58 X10*6/uL (4.20-5.50); White Blood Count 7.9 X10*3/uL (4.8-10.8)
[2025-01-21 10:29] LABS: Hemoglobin A1C 218.5912 umol/L; Total Hemoglobin (HGBA1C) 3628.9882 umol/L
[2025-01-21 10:55] LABS: Alanine Aminotransferase 30 U/L (0-31); Albumin Level 4.1 g/dL (3.5-5.0); Alkaline Phosphatase 75 U/L (39-117); Anion Gap 11 (12-20); Aspartate Amino Transferase 39 U/L (5-31); Blood Urea Nitrogen 14 mg/dL (9-16); Calcium 9.2 mg/dL (8.4-10.2); Carbon Dioxide 26 mmol/L (22-29); Chloride 107 mmol/L (96-108); Cholesterol 181 mg/dL (<200); Estimated Glomerular Filt Rate > 60; HDL Cholesterol 41 mg/dL (>40); Potassium 4.1 mmol/L (3.3-5.1); Sodium 140 mmol/L (135-145); Total Protein 7.1 g/dL (6.5-8.0); Triglycerides 192 mg/dL (<150)
[2025-01-21 11:25] LABS: Microalbum/Creatinine Ratio Ur 10.8 ug/mg cr (<30)
== END 2025-01-21 07:37 | disposition home or self-care (01) ==
LOC: HO.HMGCLDS 07:36
PROVIDERS: PCP Internal Medicine; Referring Provider Internal Medicine; Visit Provider Internal Medicine
DX: I10 Essential (primary) hypertension (principal); E11.65 Type 2 diabetes mellitus with hyperglycemia; B35.1 Tinea unguium; E11.42 Type 2 diabetes mellitus with diabetic polyneuropathy; E55.9 Vitamin D deficiency, unspecified; M86.9 Osteomyelitis, unspecified; E78.5 Hyperlipidemia, unspecified; E03.9 Hypothyroidism, unspecified; Z79.4 Long term (current) use of insulin
CPT/HCPCS: 36415; 80053; 80061; 82043; 82570; 83036; 84443; 85025

== ENCOUNTER 2025-01-26 13:44 | Outpatient (AMB) | payer OTHER, SELFPAY ==
[2025-01-26 13:45] VITALS: BP 150/80; PULSE 82; O2SAT 94; BMI 41.0
--- NOTE | 2025-01-26 13:45 | MHC.PC.OV ---
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 Required: No Allergies doxycycline Adverse Reaction (Verified 01/26/25 13:49) GI upset Medication List - Last Reconciled 01/26/25 by Evie Hickman MD doxycycline monohydrate 100 mg PO BID FreeStyle Laverne 3 Sensor (blood-glucose sensor) As directed to test blood sugar 4 times per day NS FreeStyle Lite Meter (blood-glucose meter) As directed NS FreeStyle Lite Strips (blood sugar diagnostic) check fasting blood sugartwice a day AC NS glipizide ER 10 mg PO DAILY lancets (FreeStyle Lancets) test blood sugars twice a day lancets check blood sugar twice a day before meals As directed levothyroxine 200 mcg PO DAILY metformin ER 1,500 mg (3 x 500 mg) PO DAILY pen needle, diabetic As directed to inject insulin once a day pen needle, diabetic (BD Ultra-Fine Short Pen Needle) As directed terbinafine HCl 250 mg PO DAILY Tobacco use date assessed: 01/26/25 Dental Screening Dental Screen Date: 01/26/25 Did you have a dental visit in the last 12 months?: Yes Did you have a dental problem in the last 6 months where you did not have access to dental care?: No Was dental information given to patient?: Patient has dentist HPI DM follow up, check feet HPI Details - The patient is a 49-year-old female presenting with management of Type 2 Diabetes Mellitus, hypertension, and recently diagnosed and treated for dorsal cellulitis with developing 4th toe proximal phalangeal .osteomyelitis of the left fourth toe noted on MRI done 12/18/24. Treated with IV Zosyn and vancomycin as she seen by ID and Surgery consult, who recommended IV antibiotics for 6 weeks. The patient did not want IV antibiotics and asked for alternative PO treatment. discussed with ID who recommended Zyvox for 4 weeks , which she already finished , and now is on Doxycycline for 4 weeks. Prescribed Clotrimazole for athlete foot. An appointment was made for her to follow-up with [facility], but not until March 2025 -For Type 2 diabetes mellitus with hyperglycemia she was kept on Insulin sliding scale. Advised to continue Metformin at home and start Glipizide 10 mg daily XL as HbA1c of 9.9. she however stopped taking insulin as she was getting hypoglycemic attacks especially at night where in her blood sugar would drop in the 40s, in his currently taking only metformin ER 1000 mg at night before going to work in 500 mg in the morning. Continued to take glipizide 10 mg which she takes in the afternoon - Hypertension: The patient has a history of hypertension, with current blood pressure readings noted as high, previously was on lisinopril but not on it at present time. her urine microalbuminuria screeningcame back negative - Hyperlipidemia: The patient's triglycerides and LDL cholesterol are elevated, she is not currently on any cholesterol-lowering medication. - She will be started on rosuvastatin 5 mg, three times a week. - Vitamin D deficiency: The patient has a low vitamin D level of 18.6, with recommendations to take [id number] vitamin D3 supplements. Has hypothyroidism, with latest thyroid levels within normal limits, currently on levothyroxine 200 mcg once a day. - [facility] Medical History (Updated 01/26/25 @ 15:24 by Evie Hickman MD) Onychomycosis Type 2 diabetes mellitus with hyperglycemia Former cigarette smoker Left anterior knee pain Diabetic neuropathy Morbid obesity Anxiety and depression Toenail fungus Cigarette smoker motivated to quit Depression Type 2 diabetes mellitus with hyperglycemia, without long-term current use of insulin Multinodular thyroid Vitamin D deficiency Hypothyroidism HLD (hyperlipidemia) HTN (hypertension) Surgical History Umbilical hernia, incarcerated Pyloric stenosis Hx of cholecystectomy History of tooth extraction Family History Father Emphysema lung Substance use disorder Mother Atrial fibrillation Social History Household Members: Children Household Members Other:: 3 children Housing: House Do you presently have visiting nurse or other home services: No Alcohol intake: never Patient Tobacco Use Status: Current everyday Tobacco user Tobacco use type: Cigarette Cigarette Packs Per Day: 0.25 Cigarettes Per Day: 20 Years Smoked: 9 e-Cigarette/Vaping Use: Never Used Advance Directives Date on File: 12/18/24 service: No Current occupational status: employed Cognitive needs: No Hearing needs: No Vision needs: Yes Questionnaire PHQ-9 Over the last 2 weeks, how often have you been bothered by any of the following problems? 1. Little interest or pleasure in doing things: several days 2. Feeling down, depressed, or hopeless: several days 3. Trouble falling or staying asleep, or sleeping too much: several days 4. Feeling tired or having little energy: several days 5. Poor appetite or overeating: several days 6. Feeling bad about yourself - or that you are a failure or have let yourself or your family down: several days 7. Trouble concentrating on things, such as reading the newspaper or watching television: not at all 8. Moving or speaking so slowly that other people could have noticed. Or the opposite - being so fidgety or restless that you have been moving around a lot more than usual: not at all 9. Thoughts that you would be better off or of hurting yourself in some way: not at all Total score: 6 Depression Screening Interpretation: Positive Depression Screening Follow-up: Existing condition, Community Mental Health Worker F/U and Follow-up Visit Requested Depression Screening Done: Yes 82176 - PHQ-9 Billing: Yes Source: Developed by Drs. Jose Wei, Jyaleen Hanson, Wyatt Jung and colleagues, with an educational margaret from [employer]. Thrive Questionnaire Date Thrive assessed: 01/26/25 I am a: Patient What is your living situation today?: I have a place to live, but I am worried about losing it in the future Within the past 12 months, did the food you bought not last and you didn't have the money to get more?: I choose not to answer this question Within the past 12 months, did you worry whether your food would run out before you got money to buy more?: Sometimes True Do you have trouble paying for medicines?: Yes Do you have trouble getting transportation to medical appointments?: No Do you have trouble paying your heating and electricity bill?: I choose not to answer this question Do you have trouble taking care of your child, family member or friend?: I choose not to answer this question Do you have trouble with day-to-day activities such as bathing, preparing meals, shopping, managing finances, etc.?: I choose not to answer this question Are you currently unemployed and looking for a job?: No Are you interested in more education?: No Please select the resources that you would like help with: None Currently or been in a relationship where the following occur: I choose not to answer THRIVE Score: 2 AUDIT C Alcohol Use Questionnaire (AUDIT-C) 1. How often do you have a drink containing alcohol?: Never 3. How often do you have six or more drinks on one occasion?: Never Total Score: 0 Score Reviewed/Action Taken: Yes CODY-7 AMB Questionnaire CODY-7 Date CODY - 7 assessed: 01/26/25 Feeling nervous, anxious, or on edge: 0 = Not at all Not being able to stop or control worryin = Several days Worrying too much about different things: 1 = Several days Trouble relaxin = Several days Being so restless that it is hard to sit still: 0 = Not at all Becoming easily annoyed or irritable: 3 = Nearly every day Feeling afraid as if something awful might happen: 2 = More than half the days Total CODY-7 score (0-4 normal; 5-9 mild; 10-14 moderate; 15-21 severe): 8 Source: Developed by Drs. Jose Wie, Jayleen Hanson, Wyatt Jung and colleagues, with an educational margaret from [employer]. CODY-7 Assessment Billing CODY-7 Assessment Tool: CODY-7 Assessment 12168 Review of Systems Const Denies fever(s), Denies headache(s), Denies malaise, Denies weakness and Reports weight gain Eyes Details: Overdue for a routine eye check and diabetes eye screen ENT Denies dizziness, Denies headache(s), Denies nasal congestion, Denies nasal discharge and Denies sore throat Card Denies chest pain, Denies lightheadedness and Denies dyspnea Resp Denies chest congestion, Denies cough, Denies dyspnea and Denies wheezing GI Denies abdominal pain, Denies change in bowel habits and Denies heartburn Denies dysuria Musc Denies abnormal gait, Denies deformity, Reports arthralgias (Anterior left knee), Reports limited range of motion and Reports stiffness Skin/Breast Details: 02/13/24 dr De Leon, now has an appointment with [facility] March 2025 Neuro Denies abnormal gait, Denies dizziness, Denies headache(s) and Denies weakness Psych Reports no additional complaints Endo Reports no additional complaints To/Lymph Reports no additional complaints Aller/Immun Denies seasonal rhinorrhea and Denies wheezing Physical exam (Primary Care) Vital Signs: Last Vital Signs Pulse 82 01/26/25 13:45 BP 150/80 H 01/26/25 13:45 Pulse Ox 94 01/26/25 13:45 Oxygen Delivery Method Room Air 01/26/25 13:45 BMI result Body Mass Index 41.0 Tobacco/Smoking Status: Tobacco use Status Tobacco use date assessed 01/26/25 01/26/25 13:46 Patient Tobacco Use Status Current everyday Tobacco 01/26/25 13:46 Tobacco use type Cigarette 01/26/25 13:46 e-Cigarette/Vaping Use Never Used 01/26/25 13:46 PHQ-9: PHQ-9 Score PHQ-9: Total score 6 01/26/25 14:13 Depression Screening Interpretation: Positive Depression Screening Follow-up: Existing condition, Community Mental Health Worker F/U and Follow-up Visit Requested Thrive Assessment: Date of Thrive Assessment Date Thrive assessed 01/26/25 01/26/25 13:46 Currently or been in a relationship where the following occur: I choose not to answer Const General: no acute distress and well developed Nutritional Appearance: obese morbidly obese Orientation/consciousness: patient oriented x3 HENMT Head: Yes normal to inspection General nose exam: Normal external nose present Face and sinus: Yes normal facial exam Eyes General: appearance normal, both eyes and all related structures Neck Neck: Yes normal visual inspection and Yes full ROM Resp Effort & Inspection: normal respiratory effort and able to speak in complete sentences Cardio Rate: regular rate Rhythm: regular rhythm Heart sounds: S1 normal heart sound present and S2 normal heart sound present Peripheral pulses: posterior tibial pulses present and dorsalis pedis present GI Inspection: Yes obesity Palpation (GI): Soft to palpation, nontender, no guarding and no masses Auscultation: normal bowel sounds Skin Other: Dry scaly skin in left foot , no ulcer seen in interdigital aspect with with 4th and 5th toe on left Nails: yellow and thickened (Toenails in both feet) Neuro General: patient oriented x3 Extrem Left lower extremity: foot Details: abnormal to inspection (left 4th digit with ulcer, no discharge, warmth, erythema noted), toes with normal ROM, vascular exam Details: normal capillary refill and motor-sensory exam Details: light-touch normal; no unusual warmth and no ecchymosis Psych Appearance: grossly normal and well kempt Mental Status: mental status grossly normal Speech and movement: Normal speech and movement present Affect: normal affect Results Reviewed Results Reviewed: Name: Pam Navarrete Age/Sex: 49/F : 1975 Unit#: [id number] Attend Dr: Evie Hickman MD Re01/21/25 Status: DEP REF Location: [facility] Disch: SPEC : [id number] LITO: 01/21/25 STATUS: COMP REQ : [id number] RECD: 01/21/[address]: Evie Hickman MD COMP: 01/21/25 ENTERED: 01/21/[address] [facility] [address]: ORDERED: CBC Auto Diff Test Result Flag Reference WBC 7.9 4.8-10.8 X10*3/uL RBC 4.58 4.20-5.50 X10*6/uL HGB 14.2 12.0-16.0 g/dl HCT 42.5 37.0-47.0 % MCV 92.8 80.0-98.0 fL MCH 31.0 27.0-33.0 pg MCHC 33.4 31.0-35.0 g/dl RDW 14.6 11.0-16.0 % PLT 147 L 160-400 X10*3/uL MPV 11.8 9.4-12.3 fL Neut Pct Auto 55.6 45-73 % ImGran Pct Auto 0.3 0.0-0.4 % Lymp Pct Auto 25.6 20-40 % Hamblen Pct Auto 6.1 2-11 % Eos Pct Auto 11.1 H 0-4 % Baso Pct Auto 1.3 0-2 % NRBC Pct Auto 0.0 0.0-0.2 /100WBC ANC Neut Abs # 4.4 2.0-8.3 x10*3/uL ImGran Abs Auto 0.02 0.00-0.03 X10*3/uL Lymph Abs Auto 2.0 1.2-4.9 X10*3/uL Hamblen Abs Auto 0.5 0.1-1.2 X10*3/uL Eos Abs Auto 0.9 H 0.0-0.4 X10*3/uL Baso Abs Auto 0.1 0.0-0.2 X10*3/uL NRBC Abs Auto 0.000 0.0-0.012 X10*3/uL Name: Pam Navarrete Age/Sex: 49/F : 1975 Unit#: [id number] Attend Dr: Evie Hickman MD Re01/21/25 Status: DEP REF Location: [facility] Disch: SPEC : [id number] LITO: 01/21/25 STATUS: COMP REQ : [id number] RECD: 01/21/25-[address]: Evie Hickman MD COMP: 01/21/25-5 ENTERED: 01/21/25-[address]: ORDERED: CMP Fast, Lipid Panel Test Result Flag Reference Sodium 140 135-145 mmol/L Potassium 4.1 3.3-5.1 mmol/L CL 107 96-108 mmol/L CO2 26 22-29 mmol/L Gap 11 L 12-20 BUN 14 9-16 mg/dL Creat 0.77 0.5-1.4 mg/dL eGFR > 60 Chronic Kidney Disease: Estimated GFR < 60 mL/min/1.73m2 Severe Kidney Disease: Estimated GFR < 15 mL/min/1.73m2 FBS 81 60-99 mg/dL CA 9.2 8.4-10.2 mg/dL Total Bili 0.4 0.0-1.0 mg/dL AST (GOT) 39 H 5-31 U/L ALT (GPT) 30 0-31 U/L Protein, Total 7.1 6.5-8.0 g/dL Alb 4.1 3.5-5.0 g/dL Triglyceride 192 H <150 mg/dL Desirable Triglyceride: less than 150 mg/dL Borderline High Triglyceride 150-199 mg/dL High Triglyceride: 200-499 mg/dL Very High Triglyceride: greater than or equal to 5OO mg/dL Cholesterol 181 <200 mg/dL Desirable Cholesterol: less than 200 mg/dL Borderline High Cholesterol: 200-239 mg/dL High Cholesterol: greater than 239 mg/dL LDL Calculated 102 H <100 mg/dL Desirable LDL: less than 100 mg/dL Near Optimal/Above Optimal LDL: 110-129 mg/dL Borderline High LDL: 130-159 mg/dL High LDL: 160-189 mg/dL Very High LDL: greater than or equal to 190 mg/dL HDL 41 >40 mg/dL Desirable HDL: greater than 40 mg/dL Note: This HDL assay may give artificially low results in patients with liver disease. Alk Phos 75 39-117 U/L Laboratory Tests 01/21/25 01/21/25 07:41 07:50 Estimat Average Glucose 174 Hemoglobin A1c % 7.7 H Urine Creatinine 147.15 Urine Microalbumin 16.0 Microalb/Creat Ratio 10.8 Coding Level of Care Code Est Pt Level 4 (70025) Diagnoses Hypertension, unspecified type I10 Hypertension type: unspecified Hyperlipidemia, unspecified hyperlipidemia type E78.5 Hyperlipidemia type: unspecified Diabetes mellitus with hyperglycemia, with long-term current use of insulin E11.65; Z79.4 Vitamin D deficiency E55.9 Osteomyelitis of fourth toe of left foot M86.9 Toenail fungus B35.1 Onychomycosis B35.1 Additional Codes CODY-7 Assessment Billing - CODY-7 Assessment Tool: CODY-7 Assessment 83990 ([id number]) PHQ-9 - 04681 - PHQ-9 Billing: Yes ([id number]) Assessment & Plan Assessment & Plan (1) HTN (hypertension): Code(s): I10 - Essential (primary) hypertension Category: Medical Qualifiers: Hypertension type: unspecified Qualified Code(s): I10 - Essential (primary) hypertension (2) HLD (hyperlipidemia): Code(s): E78.5 - Hyperlipidemia, unspecified Category: Medical Qualifiers: Hyperlipidemia type: unspecified Qualified Code(s): E78.5 - Hyperlipidemia, unspecified (3) Diabetes mellitus with hyperglycemia, with long-term current use of insulin: Code(s): E11.65 - Type 2 diabetes mellitus with hyperglycemia; Z79.4 - group home (current) use of insulin Category: Medical (4) Vitamin D deficiency: Code(s): E55.9 - Vitamin D deficiency, unspecified Category: Medical (5) Osteomyelitis of fourth toe of left foot: Code(s): M86.9 - Osteomyelitis, unspecified Category: Medical (6) Toenail fungus: Code(s): B35.1 - Tinea unguium Category: Medical (7) Onychomycosis: Code(s): B35.1 - Tinea unguium Category: Medical Plan The management plan for Type 2 Diabetes Mellitus includes discontinuing glipizide and adjusting metformin to 1000 mg twice daily, with a focus on maintaining consistent meal patterns to prevent hypoglycemia. Discussed starting her on GLP 1 agonist but patient declined. For hypertension, the patient will be restarted on lisinopril 10 mg daily to manage blood pressure and protect renal function. Hyperlipidemia will be addressed with the initiation of rosuvastatin 5 mg, to be taken three times a week, to manage elevated cholesterol levels. The patient is advised to take [id number] vitamin D3 supplements, at least 2000 units daily, to address the deficiency and improve overall health. Continue with doxycycline as recommended by Infectious Disease for treatment of her osteomyelitis on left 4th toe. Reminded to keep appointment with Podiatry in March 2025 stressed importance of getting diabetes eye exam yearly.. Follow-up appointments are scheduled in three months, with blood work to be completed prior to assess the effectiveness of the treatment plan. Patient was informed and verbally consented to the use of an ambient scribe for clinic note documentation during this visit. Medications: New lisinopril 10 mg PO DAILY 90 tabs 1RF rosuvastatin 5 mg PO 3XW 39 tabs 3RF 3 months Changed From metformin ER 1,500 mg (3 x 500 mg) PO DAILY 270 tabs 3RF To metformin ER 1,000 mg (2 x 500 mg) PO BID 270 tabs 3RF
== END 2025-01-26 14:15 | disposition home or self-care (01) ==
LOC: HO.HMCC 13:45
PROVIDERS: PCP Internal Medicine; Visit Provider Internal Medicine
DX: I10 Essential (primary) hypertension (principal); E78.5 Hyperlipidemia, unspecified; E11.65 Type 2 diabetes mellitus with hyperglycemia; Z79.4 Long term (current) use of insulin; E55.9 Vitamin D deficiency, unspecified; M86.9 Osteomyelitis, unspecified; B35.1 Tinea unguium

== ENCOUNTER → 2025-01-26 13:44 | Outpatient (BNVA) | payer OTHER, SELFPAY | PROVIDERS: PCP Internal Medicine; Visit Provider Internal Medicine | DX: E11.65 Type 2 diabetes mellitus with hyperglycemia (principal); I10 Essential (primary) hypertension; M86.9 Osteomyelitis, unspecified; E78.5 Hyperlipidemia, unspecified; E55.9 Vitamin D deficiency, unspecified; B35.1 Tinea unguium; Z79.4 Long term (current) use of insulin; Z79.2 Long term (current) use of antibiotics | CPT/HCPCS: 96127 ==

== ENCOUNTER 2025-02-06 11:06 | Outpatient (AMB) | payer OTHER, SELFPAY ==
[2025-02-06 12:06] VITALS: BP 108/60; PULSE 89; TEMP 36.3; O2SAT 94; BMI 41.0
--- NOTE | 2025-02-06 12:06 | MHC.PC.OV ---
Vital Signs 02/06/25 12:06 Height 5 ft 10 in Intake Visit Reasons: EP wound on leg Allergies doxycycline Adverse Reaction (Verified 01/26/25 13:49) GI upset Tobacco use date assessed: 01/26/25 Dental Screening Dental Screen Date: 01/26/25 [facility] Medical History (Updated 01/26/25 @ 15:24 by Evie Hickman MD) Onychomycosis Type 2 diabetes mellitus with hyperglycemia Former cigarette smoker Left anterior knee pain Diabetic neuropathy Morbid obesity Anxiety and depression Toenail fungus Cigarette smoker motivated to quit Depression Type 2 diabetes mellitus with hyperglycemia, without long-term current use of insulin Multinodular thyroid Vitamin D deficiency Hypothyroidism HLD (hyperlipidemia) HTN (hypertension) Surgical History Umbilical hernia, incarcerated Pyloric stenosis Hx of cholecystectomy History of tooth extraction Family History Father Emphysema lung Substance use disorder Mother Atrial fibrillation Social History Household Members: Children Household Members Other:: 3 children Housing: House Do you presently have visiting nurse or other home services: No Alcohol intake: never Patient Tobacco Use Status: Current everyday Tobacco user Tobacco use type: Cigarette Cigarette Packs Per Day: 0.25 Cigarettes Per Day: 20 Years Smoked: 9 e-Cigarette/Vaping Use: Never Used Advance Directives Date on File: 12/18/24 service: No Current occupational status: employed Cognitive needs: No Hearing needs: No Vision needs: Yes Questionnaire Thrive Questionnaire Date Thrive assessed: 01/26/25 CODY-7 AMB Questionnaire CODY-7 Date CODY - 7 assessed: 01/26/25 Source: Developed by Drs. Jose Wei, Jayleen Hanson, Wyatt Jung and colleagues, with an educational margaret from [employer]. Physical exam (Primary Care) Tobacco/Smoking Status: Tobacco use Status Tobacco use date assessed 01/26/25 01/26/25 13:46 Patient Tobacco Use Status Current everyday Tobacco 01/26/25 13:46 Tobacco use type Cigarette 01/26/25 13:46 e-Cigarette/Vaping Use Never Used 01/26/25 13:46 Thrive Assessment: Date of Thrive Assessment Date Thrive assessed 01/26/25 01/30/25 08:57 Coding
--- NOTE | 2025-02-06 12:11 | AM.OFFWIN_ITS ---
Intake Vital Signs 02/06/25 12:06 Height 5 ft 10 in Weight 286 lb BMI 41.0 BP 108/60 Blood Pressure Location Lt brachial Position Sitting Pulse 89 Pulse Source Pulse Oximeter Temp 97.3 F Temp Source Oral Pulse Oximetry (%) 94 Oxygen Delivery Method Room Air Intake Visit Reasons: EP wound on leg Patient Tobacco Use Status: Current everyday Tobacco user Allergies doxycycline Adverse Reaction (Verified 02/06/25 12:10) GI upset Do you need a note to return to daycare/school/sports/work: Yes HPI HPI Comments History of Present Illness Details This is a 49-year-old [id number] diabetic presenting for evaluation of a wound on her distal right lower extremity. The patient states that approximately 1 week ago she pulled a ?scab? off a healing wound and comes today with mild discomfort. The patient continues to take doxycycline twice daily for continued management of an osteomyelitis under left foot. Patient denies any worsening of the symptoms on her left foot. She has not taken any medication for treatment of her discomfort in the right lower extremity. [facility] Medical History (Updated 02/06/25 @ 12:46 by Vanna Marie PA-C) Onychomycosis Type 2 diabetes mellitus with hyperglycemia Former cigarette smoker Left anterior knee pain Diabetic neuropathy Morbid obesity Anxiety and depression Toenail fungus Cigarette smoker motivated to quit Depression Type 2 diabetes mellitus with hyperglycemia, without long-term current use of insulin Multinodular thyroid Vitamin D deficiency Hypothyroidism HLD (hyperlipidemia) HTN (hypertension) Surgical History Umbilical hernia, incarcerated Pyloric stenosis Hx of cholecystectomy History of tooth extraction Family History Father Emphysema lung Substance use disorder Mother Atrial fibrillation Social History Household Members: Children Household Members Other:: 3 children Housing: House Do you presently have visiting nurse or other home services: No Alcohol intake: never Patient Tobacco Use Status: Current everyday Tobacco user Tobacco use type: Cigarette Cigarette Packs Per Day: 0.25 Cigarettes Per Day: 20 Years Smoked: 9 e-Cigarette/Vaping Use: Never Used Advance Directives Date on File: 12/18/24 service: No Current occupational status: employed Cognitive needs: No Hearing needs: No Vision needs: Yes Review of Systems Const All systems reviewed & are unremarkable except as noted in HPI and below Reports no additional complaints, Denies chills, Denies fatigue, Denies fever(s) and Denies headache(s) ENT Denies headache(s) Skin/Breast Details: Wound right lower extremity Neuro Reports no additional complaints and Denies headache(s) Psych Reports no additional complaints Endo Reports no additional complaints and Denies fatigue Aller/Immun Reports no additional complaints Physical Exam Vital Signs: Last Vital Signs Temp 97.3 F 02/06/25 12:06 Pulse 89 02/06/25 12:06 BP 108/60 02/06/25 12:06 Pulse Ox 94 02/06/25 12:06 Oxygen Delivery Method Room Air 02/06/25 12:06 BMI result Body Mass Index 41.0 Patient is afebrile. Const General: cooperative, no acute distress, alert and awake; No ill appearing Nutritional Appearance: obese Orientation/consciousness: patient oriented x3 Limitations: no limitations Skin Other: There is a chronic appearing wound noted on the surface of the right lower extremity overlying the mid tibial shaft that is approximately 4 cm by 2 cm with approximately 0.5cm surrounding macular erythema that is not warm or tender to touch. Neuro General: patient oriented x3 Extrem Other: Patient is ambulating independently. There is no right calf tenderness, passive ROM right knee and right ankle intact. Psych Appearance: grossly normal Mental Status: mental status grossly normal Insight: Fair insight present (Psych) Judgement: Fair judgement present (Psych) Results Reviewed Results Reviewed: Blood glucose Assessment & Plan Assessment & Plan (1) Visit for wound check: Comment: Patient is currently taking doxycycline twice daily and given her history, coupled with her examination, a secondary antibiotic is not warranted at this time. Patient's blood glucose is 115 mg/dL. Code(s): Z51.89 - Encounter for other specified aftercare Plan: Continue doxycycline twice daily as previously prescribed and elevate the right lower extremity when at rest. Follow up for any worsening symptoms including worsening redness, hyperglycemia, fevers, chills or discharge from the wound. Orders: Orders AMB Random Glucose (hemocue) Today Z13.9 - Encounter for screening, unspecified Coding Level of Care Code Est Pt Level 3 (61626) Diagnoses Visit for wound check Z51.89 Time Spent (min) 20
== END 2025-02-06 12:54 | disposition home or self-care (01) ==
PROVIDERS: PCP Internal Medicine; Visit Provider Physician Assistant
DX: Z51.89 Encounter for other specified aftercare (principal); Z13.9 Encounter for screening, unspecified

== ENCOUNTER → 2025-02-06 11:06 | Outpatient (BNVA) | payer OTHER, SELFPAY | PROVIDERS: PCP Internal Medicine; Visit Provider Physician Assistant | DX: S81.801D Unspecified open wound, right lower leg, subsequent encounter (principal); E11.69 Type 2 diabetes mellitus with other specified complication; M86.9 Osteomyelitis, unspecified; X58.XXXD Exposure to other specified factors, subsequent encounter; Z51.89 Encounter for other specified aftercare; Z79.4 Long term (current) use of insulin; Z79.2 Long term (current) use of antibiotics | CPT/HCPCS: 82948 ==